=== PATIENT | male | born 1930 | race Hispanic/Latino ===

== ENCOUNTER 2017-05-14 01:46 | Emergency (ER) | payer MEDICARE ==
[2017-05-14 02:10] VITALS: BMI 31.8
[2017-05-14 02:13] VITALS: TEMP 98.3; O2SAT 97
[2017-05-14 02:42] LABS: BASO % 0.4 % (0.0-2.0); EOS # 0.1 K/uL (0.0-0.7); EOS % 1.6 % (0.0-4.0); HEMATOCRIT 35.7 % (35.0-51.0); LYMPH # 1.3 K/uL (1.0-4.3); LYMPH % 17.3 % (20.0-40.0); MEAN CELL VOLUME 95.7 fl (80.0-94.0); MEAN CORPUSCULAR HEMOGLOBIN 32.2 pg (27.0-31.0); MEAN CORPUSCULAR HGB CONC 33.6 g/dL (33.0-37.0); MEAN PLATELET VOLUME 8.8 fl (7.2-11.7); MONO % 13.8 % (0.0-10.0); NEUT # 4.9 K/uL (1.8-7.0); NEUT % 66.9 % (50.0-75.0); RED CELL DISTRIBUTION WIDTH 13.6 % (11.5-14.5); WHITE BLOOD COUNT 7.4 K/uL (4.8-10.8)
[2017-05-14 02:51] LABS: ALB/GLOB RATIO 1.3 (1.0-2.1); BILIRUBIN,TOTAL 0.6 mg/dl (0.2-1.3); CALCIUM 9.3 mg/dL (8.4-10.2); POTASSIUM 4.6 MMOL/L (3.6-5.0); TOTAL PROTEIN 7.5 G/DL (6.3-8.2)
--- NOTE | 2017-05-14 02:53 | ED PDOC ---
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 Patient has aphasia secondary to stroke but is able to communicate with and to say yes/ no with neck movements. (-) nausea, vomiting, diarrhea, fever, cough, SOB, or chest pain. confirms administration of Tylenol for the intermittent pain, and states she became more concerned with symptoms due to their persistence. Of note, patient has residual right sided weakness which has not worsened. PCP: MEENA Past Medical History Reviewed: Historical Data, Nursing Documentation, Vital Signs Vital Signs: Last Vital Signs Temp 98.3 F 05/14/17 02:10 Pulse 60 05/14/17 02:10 Resp 16 05/14/17 02:10 BP 138/70 05/14/17 02:10 Pulse Ox 97 05/14/17 02:10 - Medical History PMH: Arthritis, CAD, Cardia Arrhythmia (CHB in January), CVA, HTN, Hypercholesterolemia, Chronic Kidney Disease, Seizures, TIA Denies: HIV - Surgical History Surgical History: Coronary Stent, Pacemaker - Family History Family History: States: No Known Family Hx - Social History Current smoker - smoking cessation education provided: No Ex-Smoker (has not smoked in the last 12 months): No Alcohol: None Drugs: Denies - Home Medications Home Medications: Ambulatory Orders Medication Instructions Recorded Aspirin [Ecotrin] 81 mg PO DAILY #0 tabec 02/12/16 GlipiZIDE [Glucotrol] 5 mg PO DAILY 07/02/16 Potassium Chloride [K-Tab ER] 10 meq PO DAILY 07/02/16 Simvastatin [Zocor] 20 mg PO HS 07/02/16 Enalapril Maleate [Vasotec] 5 mg PO DAILY #0 tab 07/05/16 Furosemide [Lasix] 20 mg PO DAILY #0 07/05/16 Lacosamide [Vimpat] 50 mg PO BID #0 tab 07/05/16 - Allergies Allergies/Adverse Reactions: Allergies Allergy/AdvReac Type Severity Reaction Status Date / Time No Known Allergies Allergy Verified 02/12/16 15:29 Review of Systems ROS Statement: Except As Marked, All Systems Reviewed And Found Negative Constitutional: Negative for: Fever Cardiovascular: Negative for: Chest Pain Respiratory: Negative for: Cough, Shortness of Breath Gastrointestinal: Negative for: Nausea, Vomiting, Diarrhea Musculoskeletal: Positive for: Arm Pain (intermittent right upper extremity pain ), Other (right sided facial pain) Physical Exam - Reviewed Nursing Documentation Reviewed: Yes Vital Signs Reviewed: Yes - Physical Exam Appears: Positive for: No Acute Distress Head Exam: Positive for: ATRAUMATIC Skin: Positive for: Normal Color, Warm, Dry Eye Exam: Positive for: Normal appearance ENT: Positive for: Normal ENT Inspection Neck: Positive for: Normal Cardiovascular/Chest: Positive for: Regular Rate, Rhythm. Negative for: Murmur Respiratory: Positive for: Normal Breath Sounds. Negative for: Respiratory Distress Gastrointestinal/Abdominal: Positive for: Normal Exam, Soft. Negative for: Tenderness Back: Positive for: Normal Inspection Extremity: Positive for: Deformity (right hand: claw deformity), Other ( spasticity to right upper extremity) Neurologic/Psych: Positive for: Alert, Oriented, Aphasia - Laboratory Results Result Diagrams: 05/14/17 02:39 05/14/17 02:39 - ECG O2 Sat by Pulse Oximetry: 97 (RA) Pulse Ox Interpretation: Normal Medical Decision Making Medical Decision Makin Initial impression: right upper extremity and right sided facial pain in setting of residual hemiplegia from previous stroke Initial plan: * CT HEAD * EKG * Labs * CPK * Trop I * PTT/PT * Acetaminophen 650mg PO * Accucheck * XR FOREARM RT * XR HAND RT * XR WRIST RT * Re-eval 0315 Vitals stable, patient resting comfortably 0400 Labs reviewed, no clinically significant findings. XRs show advanced degenerative joint disease Upon re-evaluation, patient reports some improvement with Tylenol and is medically stable for discharge home. Patient will follow up with PCP x2 days. Dx: arthritis CT FINDINGS Brain: Moderate atrophy. No intracranial hemorrhage. No mass. Moderate encephalomalacia within LEFT frontal parietal region. Few scattered foci of decreased attenuation within periventricular/subcortical white matter. No definite edema. Ventricles: No hydrocephalus. Bones/joints: No acute fracture. Mild degenerative changes of LEFT temporomandibular joint with subluxation. Soft tissues: Unremarkable. Vasculature: Atherosclerotic disease of intracranial arteries. Sinuses: No acute sinusitis. Mastoid air cells: No mastoid effusion. Orbits: Unremarkable as visualized. IMPRESSION: 1. Nonspecific white matter changes. Acute infarction may be CT occult within first 24 hours. If a focal deficit persists, consider followup CT or MRI for further evaluation. 2. Incidental/non-acute findings are described above. Scribe Attestation: Documented by Yessi Skinner acting as a scribe for Ravinder Lobo MD. Scribe Attestation: All medical record entries made by the Scribe were at my direction and personally dictated by me. I have reviewed the chart and agree that the record accurately reflects my personal performance of the history, physical exam, medical decision making, and the department course for this patient. I have also personally directed, reviewed, and agree with the discharge instructions and disposition. Disposition - Clinical Impression Clinical Impression: Arthritis Counseled Patient/Family Regarding: Studies Performed, Diagnosis, Need For Followup - Disposition Referrals: Douglas Weiss MD [Primary Care Provider] - Disposition: Routine/Home Disposition Time: 04:00 Condition: STABLE Instructions: Osteoarthritis (ED) - POA Present On Arrival: None
--- NOTE | 2017-05-14 03:01 | CT ---
EXAM: CT Head Without Intravenous Contrast CLINICAL HISTORY: 86 years old, male; Signs and symptoms; Weakness, extremity TECHNIQUE: Axial computed tomography images of the head/brain without intravenous contrast. This CT exam was performed using one or more of the following dose reduction techniques: automated exposure control, adjustment of the mA and/or kV according to patient size, and/or use of iterative reconstruction technique. Coronal and sagittal reformatted images were created and reviewed. COMPARISON: CT - HEAD W/O CONTRAST 02/04/2016 11:34:55 AM FINDINGS: Brain: Moderate atrophy. No intracranial hemorrhage. No mass. Moderate encephalomalacia within LEFT frontal parietal region. Few scattered foci of decreased attenuation within periventricular/subcortical white matter. No definite edema. Ventricles: No hydrocephalus. Bones/joints: No acute fracture. Mild degenerative changes of LEFT temporomandibular joint with subluxation. Soft tissues: Unremarkable. Vasculature: Atherosclerotic disease of intracranial arteries. Sinuses: No acute sinusitis. Mastoid air cells: No mastoid effusion. Orbits: Unremarkable as visualized. IMPRESSION: 1. Nonspecific white matter changes. Acute infarction may be CT occult within first 24 hours. If a focal deficit persists, consider followup CT or MRI for further evaluation. 2. Incidental/non-acute findings are described above.
[2017-05-14 03:02] LABS: TROPONIN I 0.021 ng/mL (0.00-0.120)
[2017-05-14 03:03] LABS: PARTIAL THROMBOPLASTIN TIME 27.6 Seconds (25.6-37.1)
[2017-05-14 04:01] VITALS: RESP 18
[2017-05-14 05:10] VITALS: BP 149/82; PULSE 72
--- NOTE | 2017-05-14 15:14 | RAD ---
PROCEDURE: Right hand radiographs Right wrist radiographs HISTORY: Pain COMPARISON: None available. FINDINGS: Severe diffuse osseous demineralization limits evaluation for acute fracture lines. Extensive degenerative changes including severe joint space narrowing most significant at the 2nd and 5th proximal interphalangeal joints. Dense vascular calcifications. Diffuse soft tissue swelling. IMPRESSION: Severe diffuse demineralization and extensive degenerative changes. No acute displaced fracture or dislocation identified. If acute fracture remains of high clinical concern, suggest MRI for further evaluation due to extensive demineralization. Correlate clinically.
--- NOTE | 2017-05-14 15:19 | RAD ---
PROCEDURE: Radiographs of the right forearm. HISTORY: pain COMPARISON: None available. TECHNIQUE: Frontal and lateral views obtained. FINDINGS: BONES: Diffuse osseous demineralization limits evaluation for acute fracture lines. No acute displaced fracture. JOINT SPACES: No dislocation. OTHER FINDINGS: Dense vascular calcification. No evidence of radiopaque foreign body. IMPRESSION: Diffuse osseous demineralization. No acute displaced fracture or dislocation identified. If symptoms persist, or if there is continued clinical concern, x-ray follow-up in 7-10 days should be considered.
--- NOTE | 2017-05-14 17:34 | CARD ---
APPROVED REPORT EKG Measurement Heart [id number] <Conclusion> Ventricular-paced rhythm Abnormal ECG
== END 2017-05-14 05:10 | disposition home or self-care (01) ==
LOC: H.ER 01:46
DX: M19.031 Primary osteoarthritis, right wrist (principal); R51 Headache

== ENCOUNTER 2017-11-21 09:20 | Emergency (ER) | payer MEDICARE ==
[2017-11-21 09:20] VITALS: BMI 31.8
[2017-11-21 09:38] VITALS: BP 159/92; PULSE 59; RESP 16; O2SAT 99
--- NOTE | 2017-11-21 10:07 | ED PDOC ---
HPI: Abdomen Time Seen by Provider: 11/21/17 09:20 Chief Complaint (Nursing): Abdominal Pain Chief Complaint (Provider): Abd Pain/Left-Sided Facial Pain History Per: Family () History/Exam Limitations: no limitations Onset/Duration Of Symptoms: Days (x1 wk) Current Symptoms Are (Timing): Still Present Additional Complaint(s): Kishan Pitt is an 87 year old male with a history of diabetes, ME (has pacemaker and stents), and stroke, from which he has right sided hemiparesis, presents to the ED with a chief complaint of diffuse abdominal pain that he has been experiencing for the past week. 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 denies patient experiencing any vomiting, diarrhea, fever, or urinary symptoms. PMD: Dr. Weiss Patient also visited at home by PRINCIPAL EXAMINER Yuliana Camp from Dr. Vaughan's office. Past Medical History Reviewed: Historical Data, Nursing Documentation, Vital Signs Vital Signs: Last Vital Signs Temp 98.0 F 11/21/17 10:45 Pulse 59 L 11/21/17 09:34 Resp 16 11/21/17 09:34 BP 159/92 H 11/21/17 09:34 Pulse Ox 99 11/21/17 14:43 - Medical History PMH: Arthritis, CAD, Cardia Arrhythmia (CHB in January), CVA, Diabetes, HTN, Hypercholesterolemia, Chronic Kidney Disease, Seizures, TIA Denies: HIV - Surgical History Surgical History: Coronary Stent, Hernia Repair, Pacemaker - Family History Family History: States: Unknown Family Hx - Social History Ex-Smoker (has not smoked in the last 12 months): No Alcohol: None Drugs: Denies - Home Medications Home Medications: Ambulatory Orders Medication Instructions Recorded Potassium Chloride [K-Tab ER] 10 meq PO DAILY 07/02/16 Simvastatin [Zocor] 20 mg PO HS 07/02/16 Allopurinol [Zyloprim] 100 mg PO DAILY 11/21/17 Aspirin [Ecotrin] 81 mg PO DAILY 11/21/17 Docusate [Colace] 100 mg PO Q12H 11/21/17 Enalapril Maleate [Vasotec] 5 mg PO BID 11/21/17 Furosemide [Lasix] 40 mg PO DAILY 11/21/17 Lacosamide [Vimpat] 50 mg PO BID 11/21/17 Levothyroxine [Synthroid] 50 mcg PO DAILY 11/21/17 Multivitamin [Multi-Vitamin Daily] 1 tab PO DAILY 11/21/17 Polyethylene Glycol 3350 [Miralax] 17 gm PO DAILY PRN 11/21/17 glyBURIDE [Micronase] 5 mg PO DAILY 11/21/17 metFORMIN [glucOPHAGE] 500 mg PO QPM 11/21/17 traZODone [Desyrel] 50 mg PO HS 11/21/17 - Allergies Allergies/Adverse Reactions: Allergies Allergy/AdvReac Type Severity Reaction Status Date / Time No Known Allergies Allergy Verified 02/12/16 15:29 Review of Systems Constitutional: Negative for: Fever ENT: Positive for: Other (left-sided facial pain) Gastrointestinal: Positive for: Abdominal Pain. Negative for: Vomiting, Diarrhea Physical Exam - Reviewed Nursing Documentation Reviewed: Yes Vital Signs Reviewed: Yes - Physical Exam Appears: Positive for: Non-toxic, No Acute Distress Head Exam: Positive for: ATRAUMATIC, NORMOCEPHALIC Skin: Positive for: Normal Color, Warm Eye Exam: Positive for: EOMI, Normal appearance, PERRL Cardiovascular/Chest: Positive for: Regular Rate, Rhythm. Negative for: Murmur Respiratory: Positive for: Normal Breath Sounds. Negative for: Wheezing Gastrointestinal/Abdominal: Positive for: Normal Exam, Soft. Negative for: Tenderness Extremity: Positive for: Normal ROM. Negative for: Tenderness, Swelling Neurologic/Psych: Positive for: Alert, Oriented, Motor/Sensory Deficits (Right- sided hemiparesis, now baseline for patient after stroke) - Laboratory Results Result Diagrams: 11/21/17 10:15 11/21/17 10:15 - ECG O2 Sat by Pulse Oximetry: 99 Medical Decision Making Medical Decision Making: Impression: Abdominal Pain/Nerve Pain Plan: * CT Abd/Pelvis without PO or IV contrast * CMP * CBC * Urinalysis * Urine C&S * Guaic Stool * Morphine 2 mg IV * Reevaluation CT Abd/Pelvis without PO or IV contrast FINDINGS: LOWER THORAX: Unremarkable. LIVER: Unremarkable. No gross lesion or ductal dilatation. GALLBLADDER AND BILE DUCTS: Unremarkable. PANCREAS: Unremarkable. No gross lesion or ductal dilatation. SPLEEN: Unremarkable. ADRENALS: Unremarkable. No mass. KIDNEYS AND URETERS: Bilaterally atrophic kidneys without focal or diffuse abnormality. Findings are consistent with medical renal disease. VASCULATURE: Unremarkable. No aortic aneurysm. BOWEL: Diverticulosis without an acute inflammatory component or other associated pathologic process. Constipation without fecal impaction or obstruction. . No obstruction. No gross mural thickening. APPENDIX: Unremarkable. Normal appendix. PERITONEUM: Unremarkable. No free fluid. No free air. LYMPH NODES: Unremarkable. No enlarged lymph nodes. BLADDER: Unremarkable. REPRODUCTIVE: Unremarkable. BONES: No acute fracture. OTHER FINDINGS: None. IMPRESSION: No acute findings related to/accounting for the clinical presentation. Additional benign and/or incidental findings described above. Limitations of the current examination: Absence of intravenous and oral contrast. 14:05 Patient's chart shows he has hx of seizures and chronic renal insufficiency. Blood work shows creatinine is at baseline. Collected guaic stool, was brown, sent up to lab. 14:[address] Scan and Guaic stool negative. Patient reports that he is feeling better , denies any pain, and is eating and drinking in ED. Patient is stable for discharge home. Scribe Attestation: Documented by Nayana Mcdonald, acting as a scribe for Stu Nuno MD. Provider Scribe Attestation: All medical record entries made by the Scribe were at my direction and personally dictated by me. I have reviewed the chart and agree that the record accurately reflects my personal performance of the history, physical exam, medical decision making, and the department course for this patient. I have also personally directed, reviewed, and agree with the discharge instructions and disposition. Disposition - Clinical Impression Clinical Impression: Abdominal pain - Patient ED Disposition Is Patient to be Admitted: No - Disposition Disposition: Routine/Home Disposition Time: 14:30 Condition: IMPROVED Additional Instructions: follow up with your primary doctor tomorrow for reevaluation return to the ED with any worsening or concerning symptoms Instructions: Abdominal Pain (ED) Forms: [employer] ([place])
[2017-11-21 10:23] LABS: BASO % 0.2 % (0.0-2.0); EOS # 0.1 K/uL (0.0-0.7); HEMOGLOBIN 12.5 g/dL (12.0-18.0); LYMPH # 0.8 K/uL (1.0-4.3); LYMPH % 10.9 % (20.0-40.0); MEAN CELL VOLUME 95.2 fl (80.0-94.0); MEAN CORPUSCULAR HEMOGLOBIN 32.6 pg (27.0-31.0); MEAN CORPUSCULAR HGB CONC 34.3 g/dL (33.0-37.0); MONO # 0.6 K/uL (0.0-0.8); MONO % 9.1 % (0.0-10.0); NEUT # 5.6 K/uL (1.8-7.0); NEUT % 78.8 % (50.0-75.0); RBC 3.82 Mil/uL (4.40-5.90); RED CELL DISTRIBUTION WIDTH 14.8 % (11.5-14.5); WHITE BLOOD COUNT 7.1 K/uL (4.8-10.8)
[2017-11-21 10:41] LABS: ALB/GLOB RATIO 1.3 (1.0-2.1); ALBUMIN 4.1 g/dL (3.5-5.0); CALCIUM 9.1 mg/dL (8.4-10.2)
[2017-11-21 10:45] VITALS: TEMP 98
--- NOTE | 2017-11-21 11:48 | CT ---
PROCEDURE: CT Abdomen and Pelvis without intravenous contrast HISTORY: Unspecified abdominal pain. COMPARISON: 02/10/2016 renal ultrasound TECHNIQUE: Unenhanced study. Neither oral nor intravenous contrast administered. Sensitivity and specificity for acute inflammatory processes limited by the absence of oral and intravenous contrast. Radiation dose: Total exam DLP = 1245.03 mGy-cm. This CT exam was performed using one or more of the following dose reduction techniques: Automated exposure control, adjustment of the mA and/or kV according to patient size, and/or use of iterative reconstruction technique. FINDINGS: LOWER THORAX: Unremarkable. LIVER: Unremarkable. No gross lesion or ductal dilatation. GALLBLADDER AND BILE DUCTS: Unremarkable. PANCREAS: Unremarkable. No gross lesion or ductal dilatation. SPLEEN: Unremarkable. ADRENALS: Unremarkable. No mass. KIDNEYS AND URETERS: Bilaterally atrophic kidneys without focal or diffuse abnormality. Findings are consistent with medical renal disease. VASCULATURE: Unremarkable. No aortic aneurysm. BOWEL: Diverticulosis without an acute inflammatory component or other associated pathologic process. Constipation without fecal impaction or obstruction. . No obstruction. No gross mural thickening. APPENDIX: Unremarkable. Normal appendix. PERITONEUM: Unremarkable. No free fluid. No free air. LYMPH NODES: Unremarkable. No enlarged lymph nodes. BLADDER: Unremarkable. REPRODUCTIVE: Unremarkable. BONES: No acute fracture. OTHER FINDINGS: None. IMPRESSION: No acute findings related to/accounting for the clinical presentation. Additional benign and/or incidental findings described above. Limitations of the current examination: Absence of intravenous and oral contrast.
[2017-11-21 13:42] LABS: URINE BILIRUBIN NEGATIVE (NEGATIVE); URINE BLOOD NEGATIVE (NEGATIVE); URINE CLARITY SLIGHTY-CLOUDY (Clear); URINE COLOR YELLOW (YELLOW); URINE GLUCOSE (UA) NEG (Normal); URINE LEUKOCYTE ESTERASE NEG Leu/uL (Negative); URINE NITRATE NEGATIVE (NEGATIVE); URINE PROTEIN NEGATIVE (NEGATIVE); URINE UROBILINOGEN 0.2-1.0 mg/dL (0.2-1.0)
--- NOTE | 2017-11-22 09:28 | CARD ---
APPROVED REPORT EKG Measurement Heart [id number] <Conclusion> Ventricular-paced rhythm Abnormal ECG
== END 2017-11-21 15:23 | disposition home or self-care (01) ==
LOC: H.ER 09:20
DX: R10.9 Unspecified abdominal pain (principal); I12.9 Hypertensive chronic kidney disease with stage 1 through stage 4 chronic kidney disease, or unspecified chronic kidney disease; E78.00 Pure hypercholesterolemia, unspecified; I25.10 Atherosclerotic heart disease of native coronary artery without angina pectoris; Z79.82 Long term (current) use of aspirin; Z79.84 Long term (current) use of oral hypoglycemic drugs; Z86.73 Personal history of transient ischemic attack (TIA), and cerebral infarction without residual deficits; Z87.891 Personal history of nicotine dependence; Z95.0 Presence of cardiac pacemaker; Z95.5 Presence of coronary angioplasty implant and graft; R56.9 Unspecified convulsions
CPT/HCPCS: 74176; 80053; 81003; 82948; 85025; 87086; 93005; 99282; G0328

== ENCOUNTER 2017-11-29 10:05 | Emergency (ER) | payer MEDICARE ==
[2017-11-29 10:09] VITALS: TEMP 96.3
[2017-11-29 10:10] VITALS: BMI 32.1
[2017-11-29] MEDS ORDERED: Iohexol 240 (50 ml) PO ONE (11:35)
[2017-11-29] MEDS ORDERED: Sodium Chloride 0.9% 1,000 ML IV ONE (11:36)
--- NOTE | 2017-11-29 11:56 | ED PDOC ---
HPI: Abdomen Time Seen by Provider: 11/29/17 10:24 Chief Complaint (Nursing): Abdominal Pain History Per: Patient History/Exam Limitations: no limitations Onset/Duration Of Symptoms: Gradual (2 weeks) Current Symptoms Are (Timing): Still Present Severity: Moderate Quality Of Discomfort: Cramping Associated Symptoms: denies: Fever, Chills, Nausea, Vomiting, Back Pain, Chest Pain, Constipation, Urinary Symptoms Exacerbating Factors: None Alleviating Factors: None Additional History Per: Patient Additional Complaint(s): 25Pt c/o abdominal pain x2 weeks, worsened the past 2-3 days. Denies nausea or vomiting. Reports taking Tylenol and Pepto Bismol, mild relief. pt was seen here on 11/[address] con ct but still persistent pain and mow with left side tuttle, Past Medical History Reviewed: Historical Data, Nursing Documentation, Vital Signs Vital Signs: Last Vital Signs Temp 96.3 F L 11/29/17 10:08 Pulse 60 11/29/17 10:08 Resp BP 167/70 H 11/29/17 10:08 Pulse Ox 99 11/29/17 11:58 - Medical History PMH: Arthritis, CAD, Cardia Arrhythmia (CHB in January), CVA, Diabetes, HTN, Hypercholesterolemia, Chronic Kidney Disease, Seizures, TIA Denies: HIV - Surgical History Surgical History: Coronary Stent, Hernia Repair, Pacemaker - Family History Family History: States: Unknown Family Hx - Living Arrangements Living Arrangements: With Family - Social History Current smoker - smoking cessation education provided: No - Home Medications Home Medications: Ambulatory Orders Medication Instructions Recorded Potassium Chloride [K-Tab ER] 10 meq PO DAILY 07/02/16 Simvastatin [Zocor] 20 mg PO HS 07/02/16 Allopurinol [Zyloprim] 100 mg PO DAILY 11/21/17 Aspirin [Ecotrin] 81 mg PO DAILY 11/21/17 Docusate [Colace] 100 mg PO Q12H 11/21/17 Enalapril Maleate [Vasotec] 5 mg PO BID 11/21/17 Furosemide [Lasix] 40 mg PO DAILY 11/21/17 Lacosamide [Vimpat] 50 mg PO BID 11/21/17 Levothyroxine [Synthroid] 50 mcg PO DAILY 11/21/17 Multivitamin [Multi-Vitamin Daily] 1 tab PO DAILY 11/21/17 Polyethylene Glycol 3350 [Miralax] 17 gm PO DAILY PRN 11/21/17 glyBURIDE [Micronase] 5 mg PO DAILY 11/21/17 metFORMIN [glucOPHAGE] 500 mg PO QPM 11/21/17 traZODone [Desyrel] 50 mg PO HS 11/21/17 - Allergies Allergies/Adverse Reactions: Allergies Allergy/AdvReac Type Severity Reaction Status Date / Time No Known Allergies Allergy Verified 02/12/16 15:29 Review of Systems ROS Statement: Except As Marked, All Systems Reviewed And Found Negative Constitutional: Negative for: Fever, Chills Cardiovascular: Negative for: Chest Pain, Palpitations Respiratory: Negative for: Cough, Shortness of Breath Gastrointestinal: Positive for: Abdominal Pain. Negative for: Nausea, Vomiting , Diarrhea, Constipation, Melena, Hematochezia, Hematemesis, Rectal Pain Genitourinary Male: Negative for: Dysuria, Frequency Neurological: Positive for: Weakness (chronic left due to cva), Headache. Negative for: Confusion, Seizures, Altered Mental Status Physical Exam - Reviewed Nursing Documentation Reviewed: Yes Vital Signs Reviewed: Yes - Physical Exam Appears: Positive for: Uncomfortable Head Exam: Positive for: ATRAUMATIC, NORMAL INSPECTION, NORMOCEPHALIC Skin: Positive for: Normal Color, Warm, Dry Eye Exam: Positive for: Normal appearance Neck: Positive for: Normal, Painless ROM, Supple Cardiovascular/Chest: Positive for: Regular Rate, Rhythm, Chest Non Tender. Negative for: Edema, Gallop Respiratory: Positive for: Normal Breath Sounds. Negative for: Decreased Breath Sounds, Accessory Muscle Use, Crackles, Rales, Rhonchi, Stridor, Wheezing , Respiratory Distress Pulses-Radial (L): 2+ Pulses-Radial (R): 2+ Gastrointestinal/Abdominal: Positive for: Normal Exam, Bowel Sounds, Soft. Negative for: Tenderness, Organomegaly, Mass, Distended, Guarding, Rebound, Hernia, Asicites Male Genital Exam: Positive for: normal genitalia, no hernia. Negative for: bleeding, epididymal tenderness, scrotum tenderness (R), scrotum tenderness (L) , testicular tenderness (R), testicular tenderness (L) Back: Positive for: Normal Inspection. 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, Motor/Sensory Deficits (chronic right sided weakness), Facial Droop (right facial droop) - Laboratory Results Result Diagrams: 11/29/17 10:45 11/29/17 12:30 - ECG ECG: Positive for: Interpreted By Me ECG Rhythm: Positive for: Normal QRS, Normal ST Segment, Venticular Paced Interpretation Of Abn EKG: rate of 60 no evidence of ischemia O2 Sat by Pulse Oximetry: 99 Pulse Ox Interpretation: Normal - Radiology X-Ray: Interpreted by Me X-Ray Interpretation: No Acute Disease Disposition - Clinical Impression Clinical Impression: Abdominal discomfort - Patient ED Disposition Is Patient to be Admitted: Transfer of Care - Disposition Disposition Time: 15:51 Condition: STABLE Forms: [employer] ([place]i) Patient Signed Over To: Melida Munoz
[2017-11-29 12:06] LABS: BASO % 0.3 % (0.0-2.0); EOS # 0.1 K/uL (0.0-0.7); EOS % 0.7 % (0.0-4.0); HEMOGLOBIN 13.6 g/dL (12.0-18.0); LYMPH # 1.1 K/uL (1.0-4.3); LYMPH % 13.5 % (20.0-40.0); MEAN CELL VOLUME 94.9 fl (80.0-94.0); MEAN CORPUSCULAR HEMOGLOBIN 32.2 pg (27.0-31.0); MEAN CORPUSCULAR HGB CONC 33.9 g/dL (33.0-37.0); MEAN PLATELET VOLUME 9.1 fl (7.2-11.7); MONO # 0.7 K/uL (0.0-0.8); MONO % 8.9 % (0.0-10.0); NEUT # 6.1 K/uL (1.8-7.0); NEUT % 76.6 % (50.0-75.0); NRBC % 0.1 % (0.0-0.0); RBC 4.22 Mil/uL (4.40-5.90); RED CELL DISTRIBUTION WIDTH 14.7 % (11.5-14.5)
[2017-11-29 12:23] LABS: SQUAMOUS EPITHIAL < 1 /hpf (0-5); URINE BILIRUBIN NEGATIVE (NEGATIVE); URINE BLOOD NEGATIVE (NEGATIVE); URINE CLARITY CLEAR (Clear); URINE COLOR STRAW (YELLOW); URINE GLUCOSE (UA) NEG (Normal); URINE LEUKOCYTE ESTERASE NEG Leu/uL (Negative); URINE NITRATE NEGATIVE (NEGATIVE); URINE PROTEIN NEGATIVE (NEGATIVE); URINE UROBILINOGEN 0.2-1.0 mg/dL (0.2-1.0)
[2017-11-29 12:38] LABS: VENOUS BLOOD GAS PCO2 39 mmHg (40-60); VENOUS BLOOD GAS PO2 41 mm/Hg (30-55); VENOUS BLOOD PH 7.45 (7.32-7.43)
--- NOTE | 2017-11-29 12:58 | RAD ---
HISTORY: abd pain COMPARISON: Chest x-ray performed 02/04/16 and 07/02/16 TECHNIQUE: Chest, one view. FINDINGS: Examination markedly limited by habitus and marked hypoinflation. LUNGS: Right peritracheal opacity of unclear significance, possibly confluence of shadows due to tortuous vasculature exaggerated by patient obliquity and prominent manubrium. Bibasilar atelectasis. Please note that chest x-ray has limited sensitivity for the detection of pulmonary masses. PLEURA: No significant pleural effusion identified. No definite pneumothorax . CARDIOVASCULAR: Single lead left-sided pacemaker. Cardiomegaly. Ectatic aorta containing atherosclerotic calcifications. OSSEOUS STRUCTURES: Degenerative changes. VISUALIZED UPPER ABDOMEN: Unremarkable. OTHER FINDINGS: None. IMPRESSION: Right peritracheal opacity of unclear significance, possibly confluence of shadows due to tortuous vasculature exaggerated by patient obliquity and prominent manubrium. Bibasilar atelectasis. Single lead left-sided pacemaker. Cardiomegaly. Ectatic aorta containing atherosclerotic calcifications.
[2017-11-29] MEDS ORDERED: Iohexol 240 (50 ml) ONE (13:06)
[2017-11-29 13:18] LABS: ALB/GLOB RATIO 1.3 (1.0-2.1); ALBUMIN 4.4 g/dL (3.5-5.0); CALCIUM 9.7 mg/dL (8.4-10.2)
[2017-11-29 13:20] LABS: TROPONIN I 0.045 ng/mL (0.00-0.120)
[2017-11-29] MEDS ORDERED: Iohexol 300 100 ML IJ ONE (15:32)
[2017-11-29] MEDS ORDERED: Sodium Chloride 0.9% 0 ML IV ONE (15:32)
--- NOTE | 2017-11-29 15:33 | CARD ---
APPROVED REPORT EKG Measurement Heart [id number] <Conclusion> Ventricular-paced rhythm Abnormal ECG
--- NOTE | 2017-11-29 15:55 | CT ---
PROCEDURE: CT HEAD WITHOUT CONTRAST. HISTORY: tuttle left frontal COMPARISON: Unenhanced head CT 05/14/2017 TECHNIQUE: Axial computed tomography images were obtained through the head/brain without intravenous contrast. Radiation dose: Total exam DLP = 1090.62 mGy-cm. This CT exam was performed using one or more of the following dose reduction techniques: Automated exposure control, adjustment of the mA and/or kV according to patient size, and/or use of iterative reconstruction technique. FINDINGS: HEMORRHAGE: No intracranial hemorrhage. 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 Good corticomedullary differentiation is otherwise seen. Reiterated diffuse cerebral atrophy and chronic microangiopathy. No suspicious extra-axial fluid collection is identified and the midline brain anatomy appears grossly nonfocal as imaged VENTRICLES: Unremarkable. No hydrocephalus. CALVARIUM: Unremarkable. PARANASAL SINUSES: Unremarkable as visualized. No significant inflammatory changes. MASTOID AIR CELLS: Unremarkable as visualized. No inflammatory changes. OTHER FINDINGS: None. IMPRESSION: Stable large chronic infarct left MCA distribution as well as age related neuro degenerative changes. No definite acute interval findings by standard CT criteria. Follow-up MRI or CT are available as clinically warranted.
--- NOTE | 2017-11-29 16:06 | ED PDOC ---
- Laboratory Results Result Diagrams: 11/29/17 10:45 11/29/17 12:30 - ECG O2 Sat by Pulse Oximetry: 99 Medical Decision Making Medical Decision Making: received patient from Dr. Resendiz. Patient in the ER because of abd pain, upper. Patient is pending CT abd/pelvis 4.45p - CT unrevealing of acute pathology. patient now without complaints. Examined and interviewed with his son at bedside. Abdominal exam is benign (no distention, no tenderness, soft). His son inquired about observation in hospital. Understands that without acute disease, it is unlikely that any further testing will be done during the weekend. Patient does not want to be admitted. He lives with his . His son lives in another town. Disposition Doctor Will See Patient In The: Office Counseled Patient/Family Regarding: Diagnosis - Clinical Impression Clinical Impression: Abdominal discomfort, Headache, Chronic renal insufficiency - POA Present On Arrival: None - Disposition Referrals: Douglas Weiss MD [Family Provider] - Nils Chavez [Outside] Disposition: Routine/Home Disposition Time: 16:45 Condition: STABLE Instructions: Abdominal Pain (ED) Forms: [employer] (Taiwanese)
--- NOTE | 2017-11-29 16:26 | CT ---
PROCEDURE: CT Abdomen and Pelvis with contrast HISTORY: Abdominal pain COMPARISON: 11/21/2017 TECHNIQUE: Oral contrast only. Radiation dose: Total exam DLP = 1224.86 mGy-cm. This CT exam was performed using one or more of the following dose reduction techniques: Automated exposure control, adjustment of the mA and/or kV according to patient size, and/or use of iterative reconstruction technique. FINDINGS: LOWER THORAX: Unremarkable. LIVER: Unremarkable. No gross lesion or ductal dilatation. GALLBLADDER AND BILE DUCTS: Unremarkable. PANCREAS: Unremarkable. No gross lesion or ductal dilatation. SPLEEN: Unremarkable. ADRENALS: Unremarkable. No mass. KIDNEYS AND URETERS: Atrophic kidneys bilaterally. No hydronephrosis. No solid mass. VASCULATURE: Unremarkable. No aortic aneurysm. BOWEL: Unremarkable. No obstruction. No gross mural thickening. Constipation without fecal impaction or obstruction. APPENDIX: Normal appendix. PERITONEUM: Unremarkable. No free fluid. No free air. LYMPH NODES: Unremarkable. No enlarged lymph nodes. BLADDER: Unremarkable. REPRODUCTIVE: Unremarkable. BONES: No acute fracture. OTHER FINDINGS: None. IMPRESSION: No acute findings related to/accounting for the clinical presentation. Additional benign and/or incidental findings described above. No significant interval change compared to the prior examination(s).
[2017-11-29 17:31] VITALS: BP 176/84; PULSE 68; RESP 18; O2SAT 98
== END 2017-11-29 17:30 | disposition home or self-care (01) ==
LOC: H.ER 10:05
DX: R10.9 Unspecified abdominal pain (principal); R51 Headache; I12.9 Hypertensive chronic kidney disease with stage 1 through stage 4 chronic kidney disease, or unspecified chronic kidney disease; E78.00 Pure hypercholesterolemia, unspecified; Z79.82 Long term (current) use of aspirin; Z79.84 Long term (current) use of oral hypoglycemic drugs; Z86.73 Personal history of transient ischemic attack (TIA), and cerebral infarction without residual deficits; Z95.0 Presence of cardiac pacemaker; Z95.5 Presence of coronary angioplasty implant and graft
CPT/HCPCS: 70450; 71045; 74176; 80053; 81003; 82150; 82803; 83690; 84484; 85025; 93005; 99282; J7040; Q9966

== ENCOUNTER 2018-07-07 18:12 | Inpatient (IN) | payer MEDICARE ==
[2018-07-07 19:02] LABS: BASO % 0.2 % (0.0-2.0); EOS # 0.2 K/uL (0.0-0.7); EOS % 1.9 % (0.0-4.0); HEMOGLOBIN 13.1 g/dL (12.0-18.0); LYMPH % 11.5 % (20.0-40.0); MEAN CELL VOLUME 97.3 fl (80.0-94.0); MEAN CORPUSCULAR HEMOGLOBIN 32.6 pg (27.0-31.0); MEAN CORPUSCULAR HGB CONC 33.5 g/dL (33.0-37.0); MEAN PLATELET VOLUME 8.5 fl (7.2-11.7); MONO # 0.6 K/uL (0.0-0.8); MONO % 6.5 % (0.0-10.0); NEUT % 79.9 % (50.0-75.0); RBC 4.02 Mil/uL (4.40-5.90); RED CELL DISTRIBUTION WIDTH 14.5 % (11.5-14.5); WHITE BLOOD COUNT 8.7 K/uL (4.8-10.8)
[2018-07-07 19:21] LABS: INR 1.1; PROTHROMBIN TIME 12.2 Seconds (9.8-13.1)
[2018-07-07 19:24] LABS: PARTIAL THROMBOPLASTIN TIME 29.4 Seconds (25.6-37.1)
[2018-07-07 19:29] LABS: ALB/GLOB RATIO 1.4 (1.0-2.1); ALBUMIN 4.2 g/dL (3.5-5.0); CALCIUM 9.3 mg/dL (8.4-10.2)
[2018-07-07 19:55] LABS: TROPONIN I 7.96 ng/mL (0.00-0.120)
--- NOTE | 2018-07-07 20:09 | ED PDOC ---
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 Also was somewhat listless today, appeared fatigued and had sweats. He also notes L facial pain, which he has intermittently for quite some time per family. Also notes a headache yesterday. He denies chest pain, fever, or vomiting/diarrhea. Patient bedbound for 5+ years. Past Medical History Reviewed: Historical Data, Nursing Documentation, Vital Signs Vital Signs: Last Vital Signs Temp 97.6 F 07/16/18 15:55 Pulse 60 07/17/18 13:59 Resp 17 07/16/18 15:55 BP 128/69 07/16/18 15:55 Pulse Ox 100 07/17/18 13:59 - Medical History PMH: Arthritis, CAD, Cardia Arrhythmia (CHB in January), CVA, Diabetes, HTN, Hypercholesterolemia, Chronic Kidney Disease, Seizures, TIA Denies: HIV Other PMH: ? stents 10yrs ago, not on plavix - Surgical History Surgical History: Coronary Stent, Hernia Repair, Pacemaker - Family History Family History: States: Unknown Family Hx - Home Medications Home Medications: Ambulatory Orders Medication Instructions Recorded Allopurinol [Zyloprim] 100 mg PO DAILY 11/21/17 Aspirin [Ecotrin] 81 mg PO DAILY 11/21/17 Docusate [Colace] 100 mg PO Q12H 11/21/17 Enalapril Maleate [Vasotec] 5 mg PO BID 11/21/17 Furosemide [Lasix] 40 mg PO DAILY 11/21/17 Lacosamide [Vimpat] 50 mg PO BID 11/21/17 Levothyroxine [Synthroid] 50 mcg PO DAILY 11/21/17 Multivitamin [Multi-Vitamin Daily] 1 tab PO DAILY 11/21/17 Polyethylene Glycol 3350 [Miralax] 17 gm PO DAILY PRN 11/21/17 glyBURIDE [Micronase] 5 mg PO DAILY 11/21/17 metFORMIN [glucOPHAGE] 500 mg PO QPM 11/21/17 traZODone [Desyrel] 50 mg PO HS 11/21/17 Atorvastatin [Lipitor] 40 mg PO DAILY tab 07/16/18 Clopidogrel [Plavix] 75 mg PO DAILY tab 07/16/18 Enoxaparin [Lovenox] 100 mg SC DAILY syr 07/16/18 - Allergies Allergies/Adverse Reactions: Allergies Allergy/AdvReac Type Severity Reaction Status Date / Time No Known Allergies Allergy Verified 07/16/18 17:27 Review of Systems ROS Statement: Except As Marked, All Systems Reviewed And Found Negative Constitutional: Negative for: Fever Cardiovascular: Negative for: Chest Pain Respiratory: Positive for: Cough. Negative for: Shortness of Breath Gastrointestinal: Positive for: Nausea, Abdominal Pain, Constipation. Negative for: Vomiting Genitourinary Male: Negative for: Dysuria, Hematuria Musculoskeletal: Negative for: Neck Pain, Back Pain, Leg Pain Skin: Negative for: Rash Neurological: Positive for: Weakness, Numbness (chronic), Change in Speech ( chronic), Altered Mental Status, Headache Psych: Negative for: Suicidal ideation Physical Exam - Reviewed Nursing Documentation Reviewed: Yes Vital Signs Reviewed: Yes - Physical Exam Appears: Positive for: Non-toxic (expressive aphasia) Head Exam: Positive for: ATRAUMATIC, NORMAL INSPECTION, NORMOCEPHALIC Skin: Positive for: Normal Color, Warm, DRY Eye Exam: Positive for: EOMI, Normal appearance, PERRL ENT: Positive for: Normal ENT Inspection Neck: Positive for: Normal, Painless ROM Cardiovascular/Chest: Positive for: Regular Rate, Rhythm Respiratory: Positive for: CNT, Normal Breath Sounds Gastrointestinal/Abdominal: Positive for: Soft. Negative for: Tenderness Back: Positive for: Normal Inspection Extremity: Positive for: Normal ROM Neurologic/Psych: Positive for: Alert, Motor/Sensory Deficits (R weakness chronic), Aphasia, Facial Droop (mild) - Laboratory Results Result Diagrams: 07/09/18 04:45 07/09/18 04:45 - ECG ECG: Positive for: Interpreted By Me ECG Rhythm: Positive for: Venticular Paced, Nonspecific Changes Interpretation Of Abn EKG: compared to 2017 EKG no changes Rate: 60 O2 Sat by Pulse Oximetry: 100 Pulse Ox Interpretation: Normal - Radiology X-Ray: Interpreted by Me X-Ray Interpretation: No Acute Disease - Critical Care Total Time (In Min): 60 Medical Decision Making Medical Decision Making: workup for abd pain with slight AMS per family EKG paced rhythm similar to prior from 2017 labs reviewed and reveal elevated trop 7.9, stable renal insufficiency, normal hgb D/w PMD /cardio Dr Weiss, requests load plavix, no heparin for now. Admit ICU CT brain/Facials ordered given initial c/o facial pain and headache, Abd pelv CT for abd pain. After trop returned, likely referred anginal symptoms d/w Dr Paul ICU for overnight care. Patient pain free on re-eval, results discussed w patient and son. Disposition - Clinical Impression Clinical Impression: Non-ST elevation (NSTEMI) myocardial infarction, CRF (chronic renal failure) - Patient ED Disposition Is Patient to be Admitted: Yes Counseled Patient/Family Regarding: Studies Performed, Diagnosis - Disposition Disposition Time: 20:01 Condition: CRITICAL - Pt Status Changed To: Hospital Disposition Of: Inpatient - Admit Certification Admit to Inpatient:: After my assessment, the patient will require hospitalization for at least two midnights. This is because of the severity of symptoms shown, intensity of services needed, and/or the medical risk in this patient being treated as an outpatient. - POA Present On Arrival: None
[2018-07-07 22:08] LABS: URINE BILIRUBIN NEGATIVE (NEGATIVE); URINE BLOOD NEGATIVE (NEGATIVE); URINE CLARITY CLEAR (Clear); URINE COLOR YELLOW (YELLOW); URINE GLUCOSE (UA) NEG (Normal); URINE LEUKOCYTE ESTERASE NEG Leu/uL (Negative); URINE PROTEIN NEGATIVE (NEGATIVE); URINE UROBILINOGEN 0.2-1.0 mg/dL (0.2-1.0)
--- NOTE | 2018-07-07 22:08 | CP.PCM.CON ---
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 Family states he has not been himself, and has been fatigued with diaphoresis. In ED, patient Troponin 7.9, EKG paced ventricular rhythm. Patient's PCP is Dr. Weiss, who requested patient high dose Plavix, no heparin drip at this time. ASA, plavix, BB, statin, initiated. No active chest pain, patient HD stable, no acute distress, family at bedside. ROS: difficult to obtain 2/2 expressive aphasia, per hpi all other systems reviewed and negative Past Patient History - Infectious Disease Hx of Infectious Diseases: None - Past Medical History & Family History Past Medical History?: Yes - Past Social History Smoking Status: Former Smoker - CARDIAC Hx Cardia Arrhythmia: Yes (CHB in January) Hx Hypercholesterolemia: Yes Hx Hypertension: Yes Hx Pacemaker: Yes - PULMONARY Hx Respiratory Disorders: No - NEUROLOGICAL Hx Seizures: Yes Hx Transient Ischemic Attacks (TIA): Yes - HEENT Hx Cataracts: Yes - RENAL Hx Chronic Kidney Disease: Yes - ENDOCRINE/METABOLIC Hx Endocrine Disorders: Yes Hx Diabetes Mellitus Type 2: Yes - HEMATOLOGICAL/ONCOLOGICAL Hx Human Immunodeficiency Virus (HIV): No - INTEGUMENTARY Hx Dermatological Problems: Yes Other/Comment: Hx skin cancer - MUSCULOSKELETAL/RHEUMATOLOGICAL Hx Arthritis: Yes - GASTROINTESTINAL Hx Gastrointestinal Disorders: No - GENITOURINARY/GYNECOLOGICAL Hx Genitourinary Disorders: No - PSYCHIATRIC Hx Psychophysiologic Disorder: No Hx Substance Use: No - SURGICAL HISTORY Hx Coronary Stent: Yes - ANESTHESIA Hx Anesthesia: Yes Hx Anesthesia Reactions: No Hx Malignant Hyperthermia: No Meds Allergies/Adverse Reactions: Allergies Allergy/AdvReac Type Severity Reaction Status Date / Time No Known Allergies Allergy Verified 02/12/16 15:29 - Medications Medications: Current Medications Acetaminophen (Tylenol 325mg Tab) 650 mg PO Q6 PRN PRN Reason: Fever >100.4 F Allopurinol (Zyloprim) 100 mg PO DAILY [place] Aspirin (Ecotrin) 81 mg PO DAILY [place] Carvedilol (Coreg) 6.25 mg PO Q12 [facility] Clopidogrel Bisulfate (Plavix) 75 mg PO DAILY [facility] Enalapril Maleate (Vasotec) 5 mg PO BID [facility] Enoxaparin Sodium (Lovenox) 40 mg SC DAILY [facility] PRN Reason: Protocol Glyburide (Micronase) 5 mg PO DAILY [facility] Home Med (Simvastatin [Zocor]) 20 mg PO HS [facility] Insulin Human Lispro (Humalog) 0 units SC ACHS [facility] PRN Reason: Protocol Lacosamide (Vimpat) 50 mg PO BID [facility] Levothyroxine Sodium (Synthroid) 50 mcg PO DAILY [place] Trazodone HCl (Desyrel) 50 mg PO HS [facility] Physical Exam - Constitutional Appears: Non-toxic, No Acute Distress - Head Exam Head Exam: ATRAUMATIC, NORMOCEPHALIC - Eye Exam Eye Exam: EOMI, Normal appearance, PERRL - ENT Exam ENT Exam: Mucous Membranes Moist, Normal Oropharynx - Respiratory Exam Respiratory Exam: Clear to Auscultation Bilateral, NORMAL BREATHING PATTERN - Cardiovascular Exam Cardiovascular Exam: RRR, +S1, +S2 - GI/Abdominal Exam GI & Abdominal Exam: Normal Bowel Sounds, Soft - Extremities Exam Extremities exam: Positive for: normal capillary refill, pedal pulses present - Back Exam Back exam: absent: CVA tenderness (L), CVA tenderness (R) - Neurological Exam Neurological exam: Alert, Reflexes Normal Additional comments: r sided hemiplegia, expressive aphasia - Psychiatric Exam Psychiatric exam: Normal Affect, Normal Mood - Skin Skin Exam: Dry, Warm Results - Vital Signs Recent Vital Signs: Last Vital Signs Temp 97.5 F L 07/07/18 18:21 Pulse 60 07/07/18 20:42 Resp 18 07/07/18 18:21 BP 115/67 07/07/18 18:21 Pulse Ox 100 07/07/18 20:42 - Labs Result Diagrams: 07/07/18 18:58 07/07/18 18:58 Labs: Laboratory Results - last 24 hr 07/07/18 07/07/18 07/07/18 18:52 18:58 18:58 WBC 8.7 RBC 4.02 L Hgb 13.1 Hct 39.1 MCV 97.3 H D MCH 32.6 H MCHC 33.5 RDW 14.5 Plt Count 211 MPV 8.5 Neut % (Auto) 79.9 H Lymph % (Auto) 11.5 L [place] % (Auto) 6.5 Eos % (Auto) 1.9 Baso % (Auto) 0.2 Neut # (Auto) 7.0 Lymph # (Auto) 1.0 [place] # (Auto) 0.6 Eos # (Auto) 0.2 Baso # (Auto) 0.0 PT INR APTT Sodium 141 Potassium 4.9 Chloride 101 Carbon Dioxide 27 Anion Gap 18 BUN 37 H Creatinine 2.7 H Est GFR ( Amer) 27 Est GFR (Non-Af Amer) 22 POC Glucose (mg/dL) 191 H Random Glucose 178 H Calcium 9.3 Total Bilirubin 0.5 AST 95 H D ALT 30 Alkaline Phosphatase 137 H D Troponin I 7.9600 H* Total Protein 7.3 Albumin 4.2 Globulin 3.1 Albumin/Globulin Ratio 1.4 Lipase 95 07/07/18 18:58 WBC RBC Hgb Hct MCV MCH MCHC RDW Plt Count MPV Neut % (Auto) Lymph % (Auto) [place] % (Auto) Eos % (Auto) Baso % (Auto) Neut # (Auto) Lymph # (Auto) [place] # (Auto) Eos # (Auto) Baso # (Auto) PT 12.2 INR 1.1 APTT 29.4 Sodium Potassium Chloride Carbon Dioxide Anion Gap BUN Creatinine Est GFR ( Amer) Est GFR (Non-Af Amer) POC Glucose (mg/dL) Random Glucose Calcium Total Bilirubin AST ALT Alkaline Phosphatase Troponin I Total Protein Albumin Globulin Albumin/Globulin Ratio Lipase Assessment & Plan - Assessment and Plan (Free Text) Plan: 87 year old bedbound male, PMH CVA with R hemiplegia, expressive aphasia, 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 Family states he has not been himself, and has been fatigued with diaphoresis. CT abd neg for any acute pathology. In ED, patient Troponin 7.9, EKG paced ventricular rhythm. Patient's PCP is Dr. Weiss, who requested patient high dose Plavix, no heparin drip at this time. ASA, plavix, BB, statin, initiated. No active chest pain, patient HD stable, no acute distress, family at bedside. NSTEMI troponin 7.9, trend enzymes EKG paced ventricular rhythm, no discordant ST segment elevations greater than 5mm cont ASA, plavix, coreg, statin. ECHO ordered DVT ppx lovenox
[2018-07-08] MEDS: Heparin 25,000units in D5W 25,000 UNITS/250 ML BAG IV SCH (03:00)
[2018-07-08 06:08] LABS: MEAN CELL VOLUME 97.3 fl (80.0-94.0); MEAN CORPUSCULAR HGB CONC 33.9 g/dL (33.0-37.0); RBC 3.64 Mil/uL (4.40-5.90); RED CELL DISTRIBUTION WIDTH 14.1 % (11.5-14.5); WHITE BLOOD COUNT 7.6 K/uL (4.8-10.8)
[2018-07-08 06:10] LABS: CALCIUM 9.2 mg/dL (8.4-10.2)
[2018-07-08] MEDS: Insulin Lispro (humaLOG) 100 Units/ml Inj SC SCH ×4 (08:00→21:38)
[2018-07-08] MEDS ORDERED: Enoxaparin 30 mg Syringe SC SCH (09:00)
--- NOTE | 2018-07-08 09:09 | RAD ---
Date of service: 07/07/2018 HISTORY: SOB COMPARISON: 11/29/2017. FINDINGS: LUNGS: There are low lung volumes. The lungs are clear PLEURA: No significant pleural effusion identified, no pneumothorax apparent. CARDIOVASCULAR: Persistent mild cardiomegaly. There is stable position of left-sided unipolar permanent pacing device. Atherosclerotic aortic arch calcifications are present. OSSEOUS STRUCTURES: No significant abnormalities. VISUALIZED UPPER ABDOMEN: Normal. OTHER FINDINGS: None. IMPRESSION: Low lung volumes. No acute findings.
--- NOTE | 2018-07-08 09:16 | CARD ---
APPROVED REPORT Date of service: 07/07/2018 <Conclusion> Sinus rhythm with complete heart block and Ventricular-paced rhythm Abnormal ECG
[2018-07-08] MEDS: Lacosamide 50 MG Tab PO SCH ×2 (09:37→16:59)
--- NOTE | 2018-07-08 09:49 | CP.CCUPN ---
<Sultan Lesa - Last Filed: 07/08/18 10:45> CCU Subjective - Physician Review Subjective (Free Text): 07/08/18 9:33 87 yo male w/ pmhx of CVA w/ right hemiplegia, expressive aphasia, CAD, CKD , pacemaker placement admitted to ICU last night for NSTEMI. Pt's first troponin level was 7.96, second troponin level was 94.3 ng/ml, repeat EKG at 2:30 AM showed ventricular paced rhythm. Computer Forensics Investigator Dr. Gooden was consulted and pt was placed on heparin drip. This morning, pt denies any chest pain, dyspnea or abdominal pain. No other complaints. CCU Objective - Vital Signs / Intake & Output Vital Signs (Last 4 hours): Vital Signs Temp Pulse Resp BP Pulse Ox 07/08/18 09:27 61 123/59 L 07/08/18 08:00 98.4 F 60 21 120/59 L 100 07/08/18 06:00 60 18 117/70 100 Intake and Output (Last 8hrs): Intake & Output 07/07/18 07/08/18 07/08/18 22:59 06:59 14:59 Intake Total 140 Output Total 100 Balance 40 Weight 124.738 kg 101.605 kg Intake: IV 20 Oral 120 Output: Urine 100 Urine, Voided 100 - Physical Exam Head: Positive for: Atraumatic, Normocephalic Pupils: Positive for: PERRL Extroacular Muscles: Positive for: EOMI Conjunctiva: Positive for: Normal Mouth: Positive for: Moist Mucous Membranes Cardiovascular: Positive for: Regular Rate and Rhythm, Normal S1, S2 Abdomen: Positive for: Normal Bowel Sounds. Negative for: Tenderness, Distention Upper Extremity: Positive for: NORMAL PULSES. Negative for: Edema Lower Extremity: Positive for: Normal Inspection, NORMAL PULSES. Negative for: CALF TENDERNESS Neurological: Positive for: Other (alert, expressive aphasia, right sided hemiplegia) Psychiatric: Positive for: Alert, Oriented x 3 - Medications Active Medications: Active Medications Generic Name Dose Route Start Last Admin Trade Name Freq PRN Reason Stop Dose Admin Acetaminophen 650 mg 07/07/18 21:54 Tylenol 325mg Tab PO Q6 PRN Fever >100.4 F Allopurinol 100 mg 07/08/18 09:00 07/08/18 09:30 Zyloprim PO 100 mg DAILY [facility] Administration Aspirin 81 mg 07/08/18 09:00 07/08/18 09:27 Ecotrin PO 81 mg DAILY [facility] Administration Atorvastatin Calcium 10 mg 07/07/18 22:00 07/07/18 22:36 Lipitor PO 10 mg HS [facility] Administration Carvedilol 6.25 mg 07/08/18 09:00 07/08/18 09:27 Coreg PO 6.25 mg Q12 [facility] Administration Clopidogrel Bisulfate 75 mg 07/08/18 09:00 07/08/18 09:29 Plavix PO 75 mg DAILY [facility] Administration Enalapril Maleate 5 mg 07/08/18 09:00 07/08/18 09:29 Vasotec PO 5 mg BID [facility] Administration Glyburide 5 mg 07/08/18 09:00 07/08/18 09:28 Micronase PO 5 mg DAILY [facility] Administration Heparin Sodium/Dextrose 25,000 units in 250 mls @ 10 mls/hr 07/08/18 02:30 03:00 Heparin 25,000 Units/250ml In D5w IV 10 mls/hr .Q24H [facility] Administration Protocol Insulin Human Lispro 0 units 07/08/18 07:30 07/08/18 08:00 Humalog SC Not Given ACHS [facility] Protocol Lacosamide 50 mg 07/08/18 09:00 07/08/18 09:37 Vimpat PO 50 mg BID [facility] Administration Levothyroxine Sodium 50 mcg 07/08/18 06:30 Synthroid PO DAILY@0630 [facility] Trazodone HCl 50 mg 07/07/18 22:00 07/07/18 22:36 Desyrel PO 50 mg HS [facility] Administration - Patient Studies Lab Studies: Lab Studies 07/08/18 07/08/18 07/08/18 Range/Units 05:46 05:29 04:00 WBC 7.6 (4.8-10.8) K/uL RBC 3.64 L (4.40-5.90) Mil/uL Hgb 12.0 (12.0-18.0) g/dL Hct 35.5 (35.0-51.0) % MCV 97.3 H (80.0-94.0) fl MCH 33.0 H (27.0-31.0) pg MCHC 33.9 (33.0-37.0) g/dL RDW 14.1 (11.5-14.5) % Plt Count 185 (130-400) K/uL MPV (7.2-11.7) fl Neut % (Auto) (50.0-75.0) % Lymph % (Auto) (20.0-40.0) % Woods % (Auto) (0.0-10.0) % Eos % (Auto) (0.0-4.0) % Baso % (Auto) (0.0-2.0) % Neut # (Auto) (1.8-7.0) K/uL Lymph # (Auto) (1.0-4.3) K/uL Woods # (Auto) (0.0-0.8) K/uL Eos # (Auto) (0.0-0.7) K/uL Baso # (Auto) (0.0-0.2) K/uL PT (9.8-13.1) Seconds INR APTT (25.6-37.1) Seconds Sodium 139 (132-148) mmol/l Potassium 4.5 (3.6-5.0) MMOL/L Chloride 102 (98-107) mmol/L Carbon Dioxide 27 (22-30) mmol/L Anion Gap 15 (10-20) BUN 38 H (9-20) mg/dl Creatinine 2.5 H (0.8-1.5) mg/dl Est GFR ( Amer) 30 Est GFR (Non-Af Amer) 24 POC Glucose (mg/dL) 141 H (65-110) mg/dL Random Glucose 143 H (75-110) mg/dL Calcium 9.2 (8.4-10.2) mg/dL Total Bilirubin (0.2-1.3) mg/dl AST (17-59) U/L ALT (21-72) U/L Alkaline Phosphatase (38-126) U/L Troponin I (0.00-0.120) ng/mL Total Protein (6.3-8.2) G/DL Albumin (3.5-5.0) g/dL Globulin (2.2-3.9) gm/dL Albumin/Globulin Ratio (1.0-2.1) Lipase (23-300) U/L Urine Color (YELLOW) Urine Clarity (Clear) Urine pH (5.0-8.0) Ur Specific [place] (1.003-1.030) Urine Protein (NEGATIVE) mg/dL Urine Glucose (UA) (Normal) mg/dL Urine Ketones (NEGATIVE) mg/dL Urine Blood (NEGATIVE) Urine Nitrate (NEGATIVE) Urine Bilirubin (NEGATIVE) Urine Urobilinogen (0.2-1.0) mg/dL Ur Leukocyte Esterase (Negative) Juancarlos/uL Urine RBC (Auto) (0-3) /hpf Urine Microscopic WBC (0-5) /hpf Hyaline Casts (0-2) /hpf 07/08/18 07/07/18 07/07/18 Range/Units 01:30 21:31 18:58 WBC (4.8-10.8) K/uL RBC (4.40-5.90) Mil/uL Hgb (12.0-18.0) g/dL Hct (35.0-51.0) % MCV (80.0-94.0) fl MCH (27.0-31.0) pg MCHC (33.0-37.0) g/dL RDW (11.5-14.5) % Plt Count (130-400) K/uL MPV (7.2-11.7) fl Neut % (Auto) (50.0-75.0) % Lymph % (Auto) (20.0-40.0) % Woods % (Auto) (0.0-10.0) % Eos % (Auto) (0.0-4.0) % Baso % (Auto) (0.0-2.0) % Neut # (Auto) (1.8-7.0) K/uL Lymph # (Auto) (1.0-4.3) K/uL Woods # (Auto) (0.0-0.8) K/uL Eos # (Auto) (0.0-0.7) K/uL Baso # (Auto) (0.0-0.2) K/uL PT 12.2 (9.8-13.1) Seconds INR 1.1 APTT 29.4 (25.6-37.1) Seconds Sodium (132-148) mmol/l Potassium (3.6-5.0) MMOL/L Chloride (98-107) mmol/L Carbon Dioxide (22-30) mmol/L Anion Gap (10-20) BUN (9-20) mg/dl Creatinine (0.8-1.5) mg/dl Est GFR ( Amer) Est GFR (Non-Af Amer) POC Glucose (mg/dL) (65-110) mg/dL Random Glucose (75-110) mg/dL Calcium (8.4-10.2) mg/dL Total Bilirubin (0.2-1.3) mg/dl AST (17-59) U/L ALT (21-72) U/L Alkaline Phosphatase (38-126) U/L Troponin I 94.3000 H* (0.00-0.120) ng/mL Total Protein (6.3-8.2) G/DL Albumin (3.5-5.0) g/dL Globulin (2.2-3.9) gm/dL Albumin/Globulin Ratio (1.0-2.1) Lipase (23-300) U/L Urine Color Yellow (YELLOW) Urine Clarity Clear (Clear) Urine pH 6.0 (5.0-8.0) Ur Specific [place] 1.013 (1.003-1.030) Urine Protein Negative (NEGATIVE) mg/dL Urine Glucose (UA) Neg (Normal) mg/dL Urine Ketones Negative (NEGATIVE) mg/dL Urine Blood Negative (NEGATIVE) Urine Nitrate Negative (NEGATIVE) Urine Bilirubin Negative (NEGATIVE) Urine Urobilinogen 0.2-1.0 (0.2-1.0) mg/dL Ur Leukocyte Esterase Neg (Negative) Juancarlos/uL Urine RBC (Auto) 1 (0-3) /hpf Urine Microscopic WBC 1 (0-5) /hpf Hyaline Casts 6-10 H (0-2) /hpf 07/07/18 07/07/18 07/07/18 Range/Units 18:58 18:58 18:52 WBC 8.7 (4.8-10.8) K/uL RBC 4.02 L (4.40-5.90) Mil/uL Hgb 13.1 (12.0-18.0) g/dL Hct 39.1 (35.0-51.0) % MCV 97.3 H D (80.0-94.0) fl MCH 32.6 H (27.0-31.0) pg MCHC 33.5 (33.0-37.0) g/dL RDW 14.5 (11.5-14.5) % Plt Count 211 (130-400) K/uL MPV 8.5 (7.2-11.7) fl Neut % (Auto) 79.9 H (50.0-75.0) % Lymph % (Auto) 11.5 L (20.0-40.0) % Woods % (Auto) 6.5 (0.0-10.0) % Eos % (Auto) 1.9 (0.0-4.0) % Baso % (Auto) 0.2 (0.0-2.0) % Neut # (Auto) 7.0 (1.8-7.0) K/uL Lymph # (Auto) 1.0 (1.0-4.3) K/uL Woods # (Auto) 0.6 (0.0-0.8) K/uL Eos # (Auto) 0.2 (0.0-0.7) K/uL Baso # (Auto) 0.0 (0.0-0.2) K/uL PT (9.8-13.1) Seconds INR APTT (25.6-37.1) Seconds Sodium 141 (132-148) mmol/l Potassium 4.9 (3.6-5.0) MMOL/L Chloride 101 (98-107) mmol/L Carbon Dioxide 27 (22-30) mmol/L Anion Gap 18 (10-20) BUN 37 H (9-20) mg/dl Creatinine 2.7 H (0.8-1.5) mg/dl Est GFR ( Amer) 27 Est GFR (Non-Af Amer) 22 POC Glucose (mg/dL) 191 H (65-110) mg/dL Random Glucose 178 H (75-110) mg/dL Calcium 9.3 (8.4-10.2) mg/dL Total Bilirubin 0.5 (0.2-1.3) mg/dl AST 95 H D (17-59) U/L ALT 30 (21-72) U/L Alkaline Phosphatase 137 H D (38-126) U/L Troponin I 7.9600 H* (0.00-0.120) ng/mL Total Protein 7.3 (6.3-8.2) G/DL Albumin 4.2 (3.5-5.0) g/dL Globulin 3.1 (2.2-3.9) gm/dL Albumin/Globulin Ratio 1.4 (1.0-2.1) Lipase 95 (23-300) U/L Urine Color (YELLOW) Urine Clarity (Clear) Urine pH (5.0-8.0) Ur Specific [place] (1.003-1.030) Urine Protein (NEGATIVE) mg/dL Urine Glucose (UA) (Normal) mg/dL Urine Ketones (NEGATIVE) mg/dL Urine Blood (NEGATIVE) Urine Nitrate (NEGATIVE) Urine Bilirubin (NEGATIVE) Urine Urobilinogen (0.2-1.0) mg/dL Ur Leukocyte Esterase (Negative) Juancarlos/uL Urine RBC (Auto) (0-3) /hpf Urine Microscopic WBC (0-5) /hpf Hyaline Casts (0-2) /hpf Laboratory Results - last 24 hr 07/07/18 07/07/18 07/07/18 18:52 18:58 18:58 WBC 8.7 RBC 4.02 L Hgb 13.1 Hct 39.1 MCV 97.3 H D MCH 32.6 H MCHC 33.5 RDW 14.5 Plt Count 211 MPV 8.5 Neut % (Auto) 79.9 H Lymph % (Auto) 11.5 L Woods % (Auto) 6.5 Eos % (Auto) 1.9 Baso % (Auto) 0.2 Neut # (Auto) 7.0 Lymph # (Auto) 1.0 Woods # (Auto) 0.6 Eos # (Auto) 0.2 Baso # (Auto) 0.0 PT INR APTT Sodium 141 Potassium 4.9 Chloride 101 Carbon Dioxide 27 Anion Gap 18 BUN 37 H Creatinine 2.7 H Est GFR ( Amer) 27 Est GFR (Non-Af Amer) 22 POC Glucose (mg/dL) 191 H Random Glucose 178 H Calcium 9.3 Total Bilirubin 0.5 AST 95 H D ALT 30 Alkaline Phosphatase 137 H D Troponin I 7.9600 H* Total Protein 7.3 Albumin 4.2 Globulin 3.1 Albumin/Globulin Ratio 1.4 Lipase 95 Urine Color Urine Clarity Urine pH Ur Specific [place] Urine Protein Urine Glucose (UA) Urine Ketones Urine Blood Urine Nitrate Urine Bilirubin Urine Urobilinogen Ur Leukocyte Esterase Urine RBC (Auto) Urine Microscopic WBC Hyaline Casts 07/07/18 07/07/18 07/08/18 18:58 21:31 01:30 WBC RBC Hgb Hct MCV MCH MCHC RDW Plt Count MPV Neut % (Auto) Lymph % (Auto) Woods % (Auto) Eos % (Auto) Baso % (Auto) Neut # (Auto) Lymph # (Auto) [place] # (Auto) Eos # (Auto) Baso # (Auto) PT 12.2 INR 1.1 APTT 29.4 Sodium Potassium Chloride Carbon Dioxide Anion Gap BUN Creatinine Est GFR ( Amer) Est GFR (Non-Af Amer) POC Glucose (mg/dL) Random Glucose Calcium Total Bilirubin AST ALT Alkaline Phosphatase Troponin I 94.3000 H* Total Protein Albumin Globulin Albumin/Globulin Ratio Lipase Urine Color Yellow Urine Clarity Clear Urine pH 6.0 Ur Specific [place] 1.013 Urine Protein Negative Urine Glucose (UA) Neg Urine Ketones Negative Urine Blood Negative Urine Nitrate Negative Urine Bilirubin Negative Urine Urobilinogen 0.2-1.0 Ur Leukocyte Esterase Neg Urine RBC (Auto) 1 Urine Microscopic WBC 1 Hyaline Casts 6-10 H 07/08/18 07/08/18 07/08/18 04:00 05:29 05:46 WBC 7.6 RBC 3.64 L Hgb 12.0 Hct 35.5 MCV 97.3 H MCH 33.0 H MCHC 33.9 RDW 14.1 Plt Count 185 MPV Neut % (Auto) Lymph % (Auto) Woods % (Auto) Eos % (Auto) Baso % (Auto) Neut # (Auto) Lymph # (Auto) Woods # (Auto) Eos # (Auto) Baso # (Auto) PT INR APTT Sodium 139 Potassium 4.5 Chloride 102 Carbon Dioxide 27 Anion Gap 15 BUN 38 H Creatinine 2.5 H Est GFR ( Amer) 30 Est GFR (Non-Af Amer) 24 POC Glucose (mg/dL) 141 H Random Glucose 143 H Calcium 9.2 Total Bilirubin AST ALT Alkaline Phosphatase Troponin I Total Protein Albumin Globulin Albumin/Globulin Ratio Lipase Urine Color Urine Clarity Urine pH Ur Specific [place] Urine Protein Urine Glucose (UA) Urine Ketones Urine Blood Urine Nitrate Urine Bilirubin Urine Urobilinogen Ur Leukocyte Esterase Urine RBC (Auto) Urine Microscopic WBC Hyaline Casts EKG/Cardiology Studies: Cardiology / EKG Studies 07/07/18 19:56 ELECTROCARDIOGRAM Stat Comment: Mode Of Transportation: Reason For Exam: Abd pain 07/08/18 EKG [ELECTROCARDIOGRAM] Stat Comment: Mode Of Transportation: Reason For Exam: acs EKG [ELECTROCARDIOGRAM] Stat Comment: Mode Of Transportation: Reason For Exam: acs Fingerstick Blood Sugar Results: 143 Review of Systems - Review of Systems Review of Systems: Unable to review all ROS due to patient's expressive aphasia Critical Care Progress Note - Nutrition Nutrition: Nutrition Category Date Time Status Heart Healthy Diet [DIET] Diets 07/07/18 Breakfast Active Assessment/Plan - Assessment and Plan (Free Text) Assessment: 87 yo male w/ pmhx of CVA w/ right hemiplegia, expressive aphasia, CAD, CKD , pacemaker placement admitted to ICU last night for NSTEMI, currently on heparin drip. Pending further recommendation by deputy director of finance. NSTEMI -Computer Forensics Investigator Dr. Gooden on board -Troponin levels: 7.95, 94.3 and 71.2 -Ekgs: ventricular paced rhythm, no discordant ST segment elevations greater than 5mm -On heparin drip -c/w aspirin 81 mg po daily -c/w plavix 75 mg po daily -start atorvastatin 40 mg po daily -c/w Coreg 6.25 mg po q12 -Repeat EKG this morning -Further recommendation as per deputy director of finance DMII: -Continue w/ current management -Glyburide 5 mg po daily -insulin humalog ACHS DVT prophylaxis: on heparin drip for ACS GI prophylaxis: <Syed Willams M - Last Filed: 07/08/18 12:28> CCU Objective - Vital Signs / Intake & Output Vital Signs (Last 4 hours): Vital Signs Pulse Resp BP Pulse Ox 07/08/18 10:00 60 14 101/48 L 100 07/08/18 09:27 61 123/59 L Intake and Output (Last 8hrs): Intake & Output 07/07/18 07/08/18 07/08/18 22:59 06:59 14:59 Intake Total 140 230 Output Total 100 300 Balance 40 -70 Weight 275 lb 224 lb Intake: IV 20 Intake, Piggyback 30 Oral 120 200 Output: Urine 100 300 Urine, Voided 100 300 - Medications Active Medications: Active Medications Generic Name Dose Route Start Last Admin Trade Name Freq PRN Reason Stop Dose Admin Acetaminophen 650 mg 07/07/18 21:54 Tylenol 325mg Tab PO Q6 PRN Fever >100.4 F Allopurinol 100 mg 07/08/18 09:00 07/08/18 09:30 Zyloprim PO 100 mg DAILY [facility] Administration Aspirin 81 mg 07/08/18 09:00 07/08/18 09:27 Ecotrin PO 81 mg DAILY [facility] Administration Atorvastatin Calcium 40 mg 07/08/18 10:15 07/08/18 11:08 Lipitor PO 40 mg DAILY [facility] Administration Carvedilol 6.25 mg 07/08/18 09:00 07/08/18 09:27 Coreg PO 6.25 mg Q12 [facility] Administration Clopidogrel Bisulfate 75 mg 07/08/18 09:00 07/08/18 09:29 Plavix PO 75 mg DAILY [facility] Administration Enalapril Maleate 5 mg 07/08/18 09:00 07/08/18 09:29 Vasotec PO 5 mg BID [facility] Administration Glyburide 5 mg 07/08/18 09:00 07/08/18 09:28 Micronase PO 5 mg DAILY [facility] Administration Heparin Sodium/Dextrose 25,000 units in 250 mls @ 10 mls/hr 07/08/18 02:30 03:00 Heparin 25,000 Units/250ml In D5w IV 10 mls/hr .Q24H [facility] Administration Protocol Insulin Human Lispro 0 units 07/08/18 07:30 07/08/18 08:00 Humalog SC Not Given ACHS [facility] Protocol Lacosamide 50 mg 07/08/18 09:00 07/08/18 09:37 Vimpat PO 50 mg BID [facility] Administration Levothyroxine Sodium 50 mcg 07/08/18 06:30 Synthroid PO DAILY@0630 [facility] Nystatin 1 applic 07/08/18 13:00 Mycostatin Cream TOP TID [facility] Trazodone HCl 50 mg 07/07/18 22:00 07/07/18 22:36 Desyrel PO 50 mg HS [facility] Administration - Patient Studies Lab Studies: Lab Studies 07/08/18 07/08/18 07/08/18 Range/Units 11:17 09:51 07:15 WBC (4.8-10.8) K/uL RBC (4.40-5.90) Mil/uL Hgb (12.0-18.0) g/dL Hct (35.0-51.0) % MCV (80.0-94.0) fl MCH (27.0-31.0) pg MCHC (33.0-37.0) g/dL RDW (11.5-14.5) % Plt Count (130-400) K/uL MPV (7.2-11.7) fl Neut % (Auto) (50.0-75.0) % Lymph % (Auto) (20.0-40.0) % Woods % (Auto) (0.0-10.0) % Eos % (Auto) (0.0-4.0) % Baso % (Auto) (0.0-2.0) % Neut # (Auto) (1.8-7.0) K/uL Lymph # (Auto) (1.0-4.3) K/uL [place] # (Auto) (0.0-0.8) K/uL Eos # (Auto) (0.0-0.7) K/uL Baso # (Auto) (0.0-0.2) K/uL PT (9.8-13.1) Seconds INR APTT 118.4 H (25.6-37.1) Seconds Sodium (132-148) mmol/l Potassium (3.6-5.0) MMOL/L Chloride (98-107) mmol/L Carbon Dioxide (22-30) mmol/L Anion Gap (10-20) BUN (9-20) mg/dl Creatinine (0.8-1.5) mg/dl Est GFR ( Amer) Est GFR (Non-Af Amer) POC Glucose (mg/dL) 191 H (65-110) mg/dL Random Glucose (75-110) mg/dL Calcium (8.4-10.2) mg/dL Total Bilirubin (0.2-1.3) mg/dl AST (17-59) U/L ALT (21-72) U/L Alkaline Phosphatase (38-126) U/L Troponin I 71.2000 H* (0.00-0.120) ng/mL Total Protein (6.3-8.2) G/DL Albumin (3.5-5.0) g/dL Globulin (2.2-3.9) gm/dL Albumin/Globulin Ratio (1.0-2.1) Lipase (23-300) U/L Urine Color (YELLOW) Urine Clarity (Clear) Urine pH (5.0-8.0) Ur Specific [place] (1.003-1.030) Urine Protein (NEGATIVE) mg/dL Urine Glucose (UA) (Normal) mg/dL Urine Ketones (NEGATIVE) mg/dL Urine Blood (NEGATIVE) Urine Nitrate (NEGATIVE) Urine Bilirubin (NEGATIVE) Urine Urobilinogen (0.2-1.0) mg/dL Ur Leukocyte Esterase (Negative) Juancarlos/uL Urine RBC (Auto) (0-3) /hpf Urine Microscopic WBC (0-5) /hpf Hyaline Casts (0-2) /hpf 07/08/18 07/08/18 07/08/18 Range/Units 05:46 05:29 04:00 WBC 7.6 (4.8-10.8) K/uL RBC 3.64 L (4.40-5.90) Mil/uL Hgb 12.0 (12.0-18.0) g/dL Hct 35.5 (35.0-51.0) % MCV 97.3 H (80.0-94.0) fl MCH 33.0 H (27.0-31.0) pg MCHC 33.9 (33.0-37.0) g/dL RDW 14.1 (11.5-14.5) % Plt Count 185 (130-400) K/uL MPV (7.2-11.7) fl Neut % (Auto) (50.0-75.0) % Lymph % (Auto) (20.0-40.0) % Woods % (Auto) (0.0-10.0) % Eos % (Auto) (0.0-4.0) % Baso % (Auto) (0.0-2.0) % Neut # (Auto) (1.8-7.0) K/uL Lymph # (Auto) (1.0-4.3) K/uL [place] # (Auto) (0.0-0.8) K/uL Eos # (Auto) (0.0-0.7) K/uL Baso # (Auto) (0.0-0.2) K/uL PT (9.8-13.1) Seconds INR APTT (25.6-37.1) Seconds Sodium 139 (132-148) mmol/l Potassium 4.5 (3.6-5.0) MMOL/L Chloride 102 (98-107) mmol/L Carbon Dioxide 27 (22-30) mmol/L Anion Gap 15 (10-20) BUN 38 H (9-20) mg/dl Creatinine 2.5 H (0.8-1.5) mg/dl Est GFR ( Amer) 30 Est GFR (Non-Af Amer) 24 POC Glucose (mg/dL) 141 H (65-110) mg/dL Random Glucose 143 H (75-110) mg/dL Calcium 9.2 (8.4-10.2) mg/dL Total Bilirubin (0.2-1.3) mg/dl AST (17-59) U/L ALT (21-72) U/L Alkaline Phosphatase (38-126) U/L Troponin I (0.00-0.120) ng/mL Total Protein (6.3-8.2) G/DL Albumin (3.5-5.0) g/dL Globulin (2.2-3.9) gm/dL Albumin/Globulin Ratio (1.0-2.1) Lipase (23-300) U/L Urine Color (YELLOW) Urine Clarity (Clear) Urine pH (5.0-8.0) Ur Specific [place] (1.003-1.030) Urine Protein (NEGATIVE) mg/dL Urine Glucose (UA) (Normal) mg/dL Urine Ketones (NEGATIVE) mg/dL Urine Blood (NEGATIVE) Urine Nitrate (NEGATIVE) Urine Bilirubin (NEGATIVE) Urine Urobilinogen (0.2-1.0) mg/dL Ur Leukocyte Esterase (Negative) Juancarlos/uL Urine RBC (Auto) (0-3) /hpf Urine Microscopic WBC (0-5) /hpf Hyaline Casts (0-2) /hpf 07/08/18 07/07/18 07/07/18 Range/Units 01:30 21:31 18:58 WBC (4.8-10.8) K/uL RBC (4.40-5.90) Mil/uL Hgb (12.0-18.0) g/dL Hct (35.0-51.0) % MCV (80.0-94.0) fl MCH (27.0-31.0) pg MCHC (33.0-37.0) g/dL RDW (11.5-14.5) % Plt Count (130-400) K/uL MPV (7.2-11.7) fl Neut % (Auto) (50.0-75.0) % Lymph % (Auto) (20.0-40.0) % Woods % (Auto) (0.0-10.0) % Eos % (Auto) (0.0-4.0) % Baso % (Auto) (0.0-2.0) % Neut # (Auto) (1.8-7.0) K/uL Lymph # (Auto) (1.0-4.3) K/uL [place] # (Auto) (0.0-0.8) K/uL Eos # (Auto) (0.0-0.7) K/uL Baso # (Auto) (0.0-0.2) K/uL PT 12.2 (9.8-13.1) Seconds INR 1.1 APTT 29.4 (25.6-37.1) Seconds Sodium (132-148) mmol/l Potassium (3.6-5.0) MMOL/L Chloride (98-107) mmol/L Carbon Dioxide (22-30) mmol/L Anion Gap (10-20) BUN (9-20) mg/dl Creatinine (0.8-1.5) mg/dl Est GFR ( Amer) Est GFR (Non-Af Amer) POC Glucose (mg/dL) (65-110) mg/dL Random Glucose (75-110) mg/dL Calcium (8.4-10.2) mg/dL Total Bilirubin (0.2-1.3) mg/dl AST (17-59) U/L ALT (21-72) U/L Alkaline Phosphatase (38-126) U/L Troponin I 94.3000 H* (0.00-0.120) ng/mL Total Protein (6.3-8.2) G/DL Albumin (3.5-5.0) g/dL Globulin (2.2-3.9) gm/dL Albumin/Globulin Ratio (1.0-2.1) Lipase (23-300) U/L Urine Color Yellow (YELLOW) Urine Clarity Clear (Clear) Urine pH 6.0 (5.0-8.0) Ur Specific [place] 1.013 (1.003-1.030) Urine Protein Negative (NEGATIVE) mg/dL Urine Glucose (UA) Neg (Normal) mg/dL Urine Ketones Negative (NEGATIVE) mg/dL Urine Blood Negative (NEGATIVE) Urine Nitrate Negative (NEGATIVE) Urine Bilirubin Negative (NEGATIVE) Urine Urobilinogen 0.2-1.0 (0.2-1.0) mg/dL Ur Leukocyte Esterase Neg (Negative) Ju[place]arlos/uL Urine RBC (Auto) 1 (0-3) /hpf Urine Microscopic WBC 1 (0-5) /hpf Hyaline Casts 6-10 H (0-2) /hpf 07/07/18 07/07/18 07/07/18 Range/Units 18:58 18:58 18:52 WBC 8.7 (4.8-10.8) K/uL RBC 4.02 L (4.40-5.90) Mil/uL Hgb 13.1 (12.0-18.0) g/dL Hct 39.1 (35.0-51.0) % MCV 97.3 H D (80.0-94.0) fl MCH 32.6 H (27.0-31.0) pg MCHC 33.5 (33.0-37.0) g/dL RDW 14.5 (11.5-14.5) % Plt Count 211 (130-400) K/uL MPV 8.5 (7.2-11.7) fl Neut % (Auto) 79.9 H (50.0-75.0) % Lymph % (Auto) 11.5 L (20.0-40.0) % Woods % (Auto) 6.5 (0.0-10.0) % Eos % (Auto) 1.9 (0.0-4.0) % Baso % (Auto) 0.2 (0.0-2.0) % Neut # (Auto) 7.0 (1.8-7.0) K/uL Lymph # (Auto) 1.0 (1.0-4.3) K/uL Woods # (Auto) 0.6 (0.0-0.8) K/uL Eos # (Auto) 0.2 (0.0-0.7) K/uL Baso # (Auto) 0.0 (0.0-0.2) K/uL PT (9.8-13.1) Seconds INR APTT (25.6-37.1) Seconds Sodium 141 (132-148) mmol/l Potassium 4.9 (3.6-5.0) MMOL/L Chloride 101 (98-107) mmol/L Carbon Dioxide 27 (22-30) mmol/L Anion Gap 18 (10-20) BUN 37 H (9-20) mg/dl Creatinine 2.7 H (0.8-1.5) mg/dl Est GFR ( Amer) 27 Est GFR (Non-Af Amer) 22 POC Glucose (mg/dL) 191 H (65-110) mg/dL Random Glucose 178 H (75-110) mg/dL Calcium 9.3 (8.4-10.2) mg/dL Total Bilirubin 0.5 (0.2-1.3) mg/dl AST 95 H D (17-59) U/L ALT 30 (21-72) U/L Alkaline Phosphatase 137 H D (38-126) U/L Troponin I 7.9600 H* (0.00-0.120) ng/mL Total Protein 7.3 (6.3-8.2) G/DL Albumin 4.2 (3.5-5.0) g/dL Globulin 3.1 (2.2-3.9) gm/dL Albumin/Globulin Ratio 1.4 (1.0-2.1) Lipase 95 (23-300) U/L Urine Color (YELLOW) Urine Clarity (Clear) Urine pH (5.0-8.0) Ur Specific [place] (1.003-1.030) Urine Protein (NEGATIVE) mg/dL Urine Glucose (UA) (Normal) mg/dL Urine Ketones (NEGATIVE) mg/dL Urine Blood (NEGATIVE) Urine Nitrate (NEGATIVE) Urine Bilirubin (NEGATIVE) Urine Urobilinogen (0.2-1.0) mg/dL Ur Leukocyte Esterase (Negative) [place]/uL Urine RBC (Auto) (0-3) /hpf Urine Microscopic WBC (0-5) /hpf Hyaline Casts (0-2) /hpf Laboratory Results - last 24 hr 07/07/18 07/07/18 07/07/18 18:52 18:58 18:58 WBC 8.7 RBC 4.02 L Hgb 13.1 Hct 39.1 MCV 97.3 H D MCH 32.6 H MCHC 33.5 RDW 14.5 Plt Count 211 MPV 8.5 Neut % (Auto) 79.9 H Lymph % (Auto) 11.5 L [place] % (Auto) 6.5 Eos % (Auto) 1.9 Baso % (Auto) 0.2 Neut # (Auto) 7.0 Lymph # (Auto) 1.0 Woods # (Auto) 0.6 Eos # (Auto) 0.2 Baso # (Auto) 0.0 PT INR APTT Sodium 141 Potassium 4.9 Chloride 101 Carbon Dioxide 27 Anion Gap 18 BUN 37 H Creatinine 2.7 H Est GFR ( Amer) 27 Est GFR (Non-Af Amer) 22 POC Glucose (mg/dL) 191 H Random Glucose 178 H Calcium 9.3 Total Bilirubin 0.5 AST 95 H D ALT 30 Alkaline Phosphatase 137 H D Troponin I 7.9600 H* Total Protein 7.3 Albumin 4.2 Globulin 3.1 Albumin/Globulin Ratio 1.4 Lipase 95 Urine Color Urine Clarity Urine pH Ur Specific [place] Urine Protein Urine Glucose (UA) Urine Ketones Urine Blood Urine Nitrate Urine Bilirubin Urine Urobilinogen Ur Leukocyte Esterase Urine RBC (Auto) Urine Microscopic WBC Hyaline Casts 07/07/18 07/07/18 07/08/18 18:58 21:31 01:30 WBC RBC Hgb Hct MCV MCH MCHC RDW Plt Count MPV Neut % (Auto) Lymph % (Auto) Woods % (Auto) Eos % (Auto) Baso % (Auto) Neut # (Auto) Lymph # (Auto) [place] # (Auto) Eos # (Auto) Baso # (Auto) PT 12.2 INR 1.1 APTT 29.4 Sodium Potassium Chloride Carbon Dioxide Anion Gap BUN Creatinine Est GFR ( Amer) Est GFR (Non-Af Amer) POC Glucose (mg/dL) Random Glucose Calcium Total Bilirubin AST ALT Alkaline Phosphatase Troponin I 94.3000 H* Total Protein Albumin Globulin Albumin/Globulin Ratio Lipase Urine Color Yellow Urine Clarity Clear Urine pH 6.0 Ur Specific [place] 1.013 Urine Protein Negative Urine Glucose (UA) Neg Urine Ketones Negative Urine Blood Negative Urine Nitrate Negative Urine Bilirubin Negative Urine Urobilinogen 0.2-1.0 Ur Leukocyte Esterase Neg Urine RBC (Auto) 1 Urine Microscopic WBC 1 Hyaline Casts 6-10 H 07/08/18 07/08/18 07/08/18 04:00 05:29 05:46 WBC 7.6 RBC 3.64 L Hgb 12.0 Hct 35.5 MCV 97.3 H MCH 33.0 H MCHC 33.9 RDW 14.1 Plt Count 185 MPV Neut % (Auto) Lymph % (Auto) [place] % (Auto) Eos % (Auto) Baso % (Auto) Neut # (Auto) Lymph # (Auto) [place] # (Auto) Eos # (Auto) Baso # (Auto) PT INR APTT Sodium 139 Potassium 4.5 Chloride 102 Carbon Dioxide 27 Anion Gap 15 BUN 38 H Creatinine 2.5 H Est GFR ( Amer) 30 Est GFR (Non-Af Amer) 24 POC Glucose (mg/dL) 141 H Random Glucose 143 H Calcium 9.2 Total Bilirubin AST ALT Alkaline Phosphatase Troponin I Total Protein Albumin Globulin Albumin/Globulin Ratio Lipase Urine Color Urine Clarity Urine pH Ur Specific [place] Urine Protein Urine Glucose (UA) Urine Ketones Urine Blood Urine Nitrate Urine Bilirubin Urine Urobilinogen Ur Leukocyte Esterase Urine RBC (Auto) Urine Microscopic WBC Hyaline Casts 07/08/18 07/08/18 07/08/18 07:15 09:51 11:17 WBC RBC Hgb Hct MCV MCH MCHC RDW Plt Count MPV Neut % (Auto) Lymph % (Auto) [place] % (Auto) Eos % (Auto) Baso % (Auto) Neut # (Auto) Lymph # (Auto) [place] # (Auto) Eos # (Auto) Baso # (Auto) PT INR APTT 118.4 H Sodium Potassium Chloride Carbon Dioxide Anion Gap BUN Creatinine Est GFR ( Amer) Est GFR (Non-Af Amer) POC Glucose (mg/dL) 191 H Random Glucose Calcium Total Bilirubin AST ALT Alkaline Phosphatase Troponin I 71.2000 H* Total Protein Albumin Globulin Albumin/Globulin Ratio Lipase Urine Color Urine Clarity Urine pH Ur Specific [place] Urine Protein Urine Glucose (UA) Urine Ketones Urine Blood Urine Nitrate Urine Bilirubin Urine Urobilinogen Ur Leukocyte Esterase Urine RBC (Auto) Urine Microscopic WBC Hyaline Casts EKG/Cardiology Studies: Cardiology / EKG Studies 07/07/18 19:56 ELECTROCARDIOGRAM Stat Comment: Mode Of Transportation: Reason For Exam: Abd pain 07/08/18 EKG [ELECTROCARDIOGRAM] Stat Comment: Mode Of Transportation: Reason For Exam: acs EKG [ELECTROCARDIOGRAM] Stat Comment: Mode Of Transportation: Reason For Exam: acs Critical Care Progress Note - Nutrition Nutrition: Nutrition Category Date Time Status Heart Healthy Diet [DIET] Diets 07/07/18 Breakfast Active Attending/Attestation - Attestation I have personally seen and examined this patient.: Yes I have fully participated in the care of the patient.: Yes I have reviewed all pertinent clinical information: Yes Notes (Text): 07/08/18 12:28 Today: Sunday, July 08, 2018 The patient was Seen/interviewed and examined by me at the bedside during ICU round, Medical records reviewed and Management issues were discussed and formulated with the house staff. Events reviewed I have reviewed all the relevant clinical, laboratory, hemodynamic, radiographic data and medications Pain issues, skin care, head of the bed elevation, glycemic control were addressed. I concur with resident's assessment and plan of care as transcribed in Dr. Mcfadden note.
--- NOTE | 2018-07-08 10:30 | CP.PCM.HP ---
History of Present Illness - History of Present Illness History of Present Illness: 87 y/o w/m admitted with NSTEMI ( PT is aphasic secondary to Old CVA ) Hx obtained from Pt developed abdominal discomfort associated with diaphoresis 1 day [employer] Troponins: elevated EKG : PMR PMH: 04/25/2007 CVA with aphasia and Right Hemiplegia Hypertension NIDDM Seizure Disorder 07/03/2016 Perm PM insertion CRF Stage 3 Present on Admission - Present on Admission Any Indicators Present on Admission: Yes History of Uncontrolled Diabetes: Yes Review of Systems - Constitutional Constitutional: Malaise Past Patient History - Infectious Disease Hx of Infectious Diseases: None - Past Medical History & Family History Past Medical History?: Yes - Past Social History Smoking Status: Former Smoker - CARDIAC Hx Cardia Arrhythmia: Yes (CHB in January) Hx Hypercholesterolemia: Yes Hx Hypertension: Yes Hx Pacemaker: Yes - PULMONARY Hx Respiratory Disorders: No - NEUROLOGICAL HX Cerebrovascular Accident: Yes Hx Seizures: Yes Hx Transient Ischemic Attacks (TIA): Yes - HEENT Hx Cataracts: Yes - RENAL Hx Chronic Kidney Disease: Yes - ENDOCRINE/METABOLIC Hx Endocrine Disorders: Yes Hx Diabetes Mellitus Type 2: Yes - HEMATOLOGICAL/ONCOLOGICAL Hx AIDS: No Hx Human Immunodeficiency Virus (HIV): No - INTEGUMENTARY Hx Dermatological Problems: Yes Other/Comment: Hx skin cancer - MUSCULOSKELETAL/RHEUMATOLOGICAL Hx Arthritis: Yes Hx Falls: No - GASTROINTESTINAL Hx Gastrointestinal Disorders: No - GENITOURINARY/GYNECOLOGICAL Hx Genitourinary Disorders: No - PSYCHIATRIC Hx Psychophysiologic Disorder: No Hx Substance Use: No - SURGICAL HISTORY Hx Coronary Stent: Yes - ANESTHESIA Hx Anesthesia: Yes Hx Anesthesia Reactions: No Has any member of the family had a problem w/ anesthesia?: No Meds Allergies/Adverse Reactions: Allergies Allergy/AdvReac Type Severity Reaction Status Date / Time No Known Allergies Allergy Verified 02/12/16 15:29 Physical Exam - Constitutional Appears: Well - Head Exam Head Exam: ATRAUMATIC - Eye Exam Eye Exam: Normal appearance - Respiratory Exam Respiratory Exam: NORMAL BREATHING PATTERN - Cardiovascular Exam Cardiovascular Exam: REGULAR RHYTHM Results - Vital Signs Recent Vital Signs: Last Vital Signs Temp 98.4 F 07/08/18 08:00 Pulse 61 07/08/18 09:27 Resp 21 07/08/18 08:00 BP 123/59 L 07/08/18 09:27 Pulse Ox 100 08/14/18 08:00 - Labs Result Diagrams: 07/08/18 04:00 07/08/18 05:46 Labs: Laboratory Results - last 24 hr 07/07/18 07/07/18 07/07/18 18:52 18:58 18:58 WBC 8.7 RBC 4.02 L Hgb 13.1 Hct 39.1 MCV 97.3 H D MCH 32.6 H MCHC 33.5 RDW 14.5 Plt Count 211 MPV 8.5 Neut % (Auto) 79.9 H Lymph % (Auto) 11.5 L [place] % (Auto) 6.5 Eos % (Auto) 1.9 Baso % (Auto) 0.2 Neut # (Auto) 7.0 Lymph # (Auto) 1.0 [place] # (Auto) 0.6 Eos # (Auto) 0.2 Baso # (Auto) 0.0 PT INR APTT Sodium 141 Potassium 4.9 Chloride 101 Carbon Dioxide 27 Anion Gap 18 BUN 37 H Creatinine 2.7 H Est GFR ( Amer) 27 Est GFR (Non-Af Amer) 22 POC Glucose (mg/dL) 191 H Random Glucose 178 H Calcium 9.3 Total Bilirubin 0.5 AST 95 H D ALT 30 Alkaline Phosphatase 137 H D Troponin I 7.9600 H* Total Protein 7.3 Albumin 4.2 Globulin 3.1 Albumin/Globulin Ratio 1.4 Lipase 95 Urine Color Urine Clarity Urine pH Ur Specific [place] Urine Protein Urine Glucose (UA) Urine Ketones Urine Blood Urine Nitrate Urine Bilirubin Urine Urobilinogen Ur Leukocyte Esterase Urine RBC (Auto) Urine Microscopic WBC Hyaline Casts 07/07/18 07/07/18 07/08/18 18:58 21:31 01:30 WBC RBC Hgb Hct MCV MCH MCHC RDW Plt Count MPV Neut % (Auto) Lymph % (Auto) [place] % (Auto) Eos % (Auto) Baso % (Auto) Neut # (Auto) Lymph # (Auto) [place] # (Auto) Eos # (Auto) Baso # (Auto) PT 12.2 INR 1.1 APTT 29.4 Sodium Potassium Chloride Carbon Dioxide Anion Gap BUN Creatinine Est GFR ( Amer) Est GFR (Non-Af Amer) POC Glucose (mg/dL) Random Glucose Calcium Total Bilirubin AST ALT Alkaline Phosphatase Troponin I 94.3000 H* Total Protein Albumin Globulin Albumin/Globulin Ratio Lipase Urine Color Yellow Urine Clarity Clear Urine pH 6.0 Ur Specific [place] 1.013 Urine Protein Negative Urine Glucose (UA) Neg Urine Ketones Negative Urine Blood Negative Urine Nitrate Negative Urine Bilirubin Negative Urine Urobilinogen 0.2-1.0 Ur Leukocyte Esterase Neg Urine RBC (Auto) 1 Urine Microscopic WBC 1 Hyaline Casts 6-10 H 07/08/18 07/08/18 07/08/18 04:00 05:29 05:46 WBC 7.6 RBC 3.64 L Hgb 12.0 Hct 35.5 MCV 97.3 H MCH 33.0 H MCHC 33.9 RDW 14.1 Plt Count 185 MPV Neut % (Auto) Lymph % (Auto) [place] % (Auto) Eos % (Auto) Baso % (Auto) Neut # (Auto) Lymph # (Auto) [place] # (Auto) Eos # (Auto) Baso # (Auto) PT INR APTT Sodium 139 Potassium 4.5 Chloride 102 Carbon Dioxide 27 Anion Gap 15 BUN 38 H Creatinine 2.5 H Est GFR ( Amer) 30 Est GFR (Non-Af Amer) 24 POC Glucose (mg/dL) 141 H Random Glucose 143 H Calcium 9.2 Total Bilirubin AST ALT Alkaline Phosphatase Troponin I Total Protein Albumin Globulin Albumin/Globulin Ratio Lipase Urine Color Urine Clarity Urine pH Ur Specific [place] Urine Protein Urine Glucose (UA) Urine Ketones Urine Blood Urine Nitrate Urine Bilirubin Urine Urobilinogen Ur Leukocyte Esterase Urine RBC (Auto) Urine Microscopic WBC Hyaline Casts 07/08/18 07:15 WBC RBC Hgb Hct MCV MCH MCHC RDW Plt Count MPV Neut % (Auto) Lymph % (Auto) [place] % (Auto) Eos % (Auto) Baso % (Auto) Neut # (Auto) Lymph # (Auto) [place] # (Auto) Eos # (Auto) Baso # (Auto) PT INR APTT Sodium Potassium Chloride Carbon Dioxide Anion Gap BUN Creatinine Est GFR ( Amer) Est GFR (Non-Af Amer) POC Glucose (mg/dL) Random Glucose Calcium Total Bilirubin AST ALT Alkaline Phosphatase Troponin I 71.2000 H* Total Protein Albumin Globulin Albumin/Globulin Ratio Lipase Urine Color Urine Clarity Urine pH Ur Specific [place] Urine Protein Urine Glucose (UA) Urine Ketones Urine Blood Urine Nitrate Urine Bilirubin Urine Urobilinogen Ur Leukocyte Esterase Urine RBC (Auto) Urine Microscopic WBC Hyaline Casts Assessment & Plan (1) Non-ST elevation (NSTEMI) myocardial infarction Assessment and Plan: I have recommended a consult with Dr Gooden for possible catherization Status: Acute (2) Controlled type 2 diabetes mellitus Status: Acute (3) Essential (primary) hypertension Status: Acute (4) Hemiplegia affecting dominant side, post-stroke Status: Acute (5) History of permanent cardiac pacemaker placement Status: Acute (6) CKD (chronic kidney disease) stage 3, GFR 30-59 ml/min Status: Chronic Priority: Medium
--- NOTE | 2018-07-08 10:33 | CP.PCM.CON ---
History of Present Illness - History of Present Illness History of Present Illness: Consultstion for NSTEMI HPI: 87-year-old male with past medical history significant for CAD status post PTCA stenting about 10 years ago CVA with residual right-sided weakness very limited activity at baseline mostly able to walk around the house with the help of a wheelchair and walker who presented with complains of diaphoretic spell and epigastric discomfort a day prior to presentation he had a a phasic stroke with mild recovery with severe right-sided hemiplegia and a seizure disorder. According to the who was sitting on his bedside he has very minimal activity denied having any chest pains that was the episode of diaphoretic spell was recorded her concerning and came to the emergency room initial troponin was 17 subsequently peaked up to 80. Currently living in the ICU in no apparent discomfort hemodynamic somewhat stable. EKG showed paced ventricular rhythm. Pt referred by for evaluation and treatment Review of Systems - Review of Systems Systems not reviewed;Unavailable: Acuity of Condition - Constitutional Constitutional: As Per HPI - EENT Eyes: As Per HPI Ears: As Per HPI Nose/Mouth/Throat: As Per HPI - Cardiovascular Cardiovascular: As Per HPI - Respiratory Respiratory: As Per HPI - Gastrointestinal Gastrointestinal: As Per HPI - Genitourinary Genitourinary: As Per HPI - Reproductive: Male Reproductive:Male: As Per HPI - Musculoskeletal Musculoskeletal: As Per HPI - Integumentary Integumentary: As Per HPI - Neurological Neurological: As Per HPI - Psychiatric Psychiatric: As Per HPI - Endocrine Endocrine: As Per HPI - Hematologic/Lymphatic Hematologic: As Per HPI Past Patient History - Infectious Disease Hx of Infectious Diseases: None - Past Medical History & Family History Past Medical History?: Yes - Past Social History Smoking Status: Former Smoker - CARDIAC Hx Cardia Arrhythmia: Yes (CHB in January) Hx Hypercholesterolemia: Yes Hx Hypertension: Yes Hx Pacemaker: Yes - PULMONARY Hx Respiratory Disorders: No - NEUROLOGICAL HX Cerebrovascular Accident: Yes Hx Seizures: Yes Hx Transient Ischemic Attacks (TIA): Yes - HEENT Hx Cataracts: Yes - RENAL Hx Chronic Kidney Disease: Yes - ENDOCRINE/METABOLIC Hx Endocrine Disorders: Yes Hx Diabetes Mellitus Type 2: Yes - HEMATOLOGICAL/ONCOLOGICAL Hx AIDS: No Hx Human Immunodeficiency Virus (HIV): No - INTEGUMENTARY Hx Dermatological Problems: Yes Other/Comment: Hx skin cancer - MUSCULOSKELETAL/RHEUMATOLOGICAL Hx Arthritis: Yes Hx Falls: No - GASTROINTESTINAL Hx Gastrointestinal Disorders: No - GENITOURINARY/GYNECOLOGICAL Hx Genitourinary Disorders: No - PSYCHIATRIC Hx Psychophysiologic Disorder: No Hx Substance Use: No - SURGICAL HISTORY Hx Coronary Stent: Yes - ANESTHESIA Hx Anesthesia: Yes Hx Anesthesia Reactions: No Has any member of the family had a problem w/ anesthesia?: No Meds Allergies/Adverse Reactions: Allergies Allergy/AdvReac Type Severity Reaction Status Date / Time No Known Allergies Allergy Verified 02/12/16 15:29 - Medications Medications: Current Medications Acetaminophen (Tylenol 325mg Tab) 650 mg PO Q6 PRN PRN Reason: Fever >100.4 F Allopurinol (Zyloprim) 100 mg PO DAILY [facility] Last Admin: 07/08/18 09:30 Dose: 100 mg Aspirin (Ecotrin) 81 mg PO DAILY [facility] Last Admin: 07/08/18 09:27 Dose: 81 mg Atorvastatin Calcium (Lipitor) 40 mg PO DAILY [facility] Carvedilol (Coreg) 6.25 mg PO Q12 [facility] Last Admin: 07/08/18 09:27 Dose: 6.25 mg Clopidogrel Bisulfate (Plavix) 75 mg PO DAILY [facility] Last Admin: 07/08/18 09:29 Dose: 75 mg Enalapril Maleate (Vasotec) 5 mg PO BID [facility] Last Admin: 07/08/18 09:29 Dose: 5 mg Glyburide (Micronase) 5 mg PO DAILY [facility] Last Admin: 07/08/18 09:28 Dose: 5 mg Heparin Sodium/Dextrose (Heparin 25,000 Units/250ml In D5w) 25,000 units in 250 mls @ 10 mls/hr IV .Q24H [facility] PRN Reason: Protocol Last Admin: 07/08/18 03:00 Dose: 10 mls/hr Insulin Human Lispro (Humalog) 0 units SC ACHS [facility] PRN Reason: Protocol Last Admin: 07/08/18 08:00 Dose: Not Given Lacosamide (Vimpat) 50 mg PO BID [facility] Last Admin: 07/08/18 09:37 Dose: 50 mg Levothyroxine Sodium (Synthroid) 50 mcg PO DAILY@0630 [facility] Trazodone HCl (Desyrel) 50 mg PO HS [facility] Last Admin: 07/07/18 22:36 Dose: 50 mg Physical Exam - Constitutional Appears: Well - Head Exam Head Exam: ATRAUMATIC, NORMAL INSPECTION, NORMOCEPHALIC - Eye Exam Eye Exam: EOMI, Normal appearance, PERRL Pupil Exam: NORMAL ACCOMODATION, PERRL - ENT Exam ENT Exam: Mucous Membranes Moist, Normal Exam - Neck Exam Neck exam: Positive for: Normal Inspection - Respiratory Exam Respiratory Exam: Clear to Auscultation Bilateral, NORMAL BREATHING PATTERN - Cardiovascular Exam Cardiovascular Exam: REGULAR RHYTHM, RRR, +S1, +S2 - GI/Abdominal Exam GI & Abdominal Exam: Normal Bowel Sounds, Soft. absent: Tenderness - Extremities Exam Extremities exam: Positive for: normal inspection - Back Exam Back exam: NORMAL INSPECTION - Neurological Exam Neurological exam: Alert, Motor Sensory Deficit - Psychiatric Exam Psychiatric exam: Normal Affect, Normal Mood - Skin Skin Exam: Dry, Intact, Normal Color, Warm Results - Vital Signs Recent Vital Signs: Last Vital Signs Temp 98.4 F 07/08/18 08:00 Pulse 61 07/08/18 09:27 Resp 21 07/08/18 08:00 BP 123/59 L 07/08/18 09:27 Pulse Ox 100 07/08/18 08:00 - Labs Result Diagrams: 07/08/18 04:00 07/08/18 05:46 Labs: Laboratory Results - last 24 hr 07/07/18 07/07/18 07/07/18 18:52 18:58 18:58 WBC 8.7 RBC 4.02 L Hgb 13.1 Hct 39.1 MCV 97.3 H D MCH 32.6 H MCHC 33.5 RDW 14.5 Plt Count 211 MPV 8.5 Neut % (Auto) 79.9 H Lymph % (Auto) 11.5 L [place] % (Auto) 6.5 Eos % (Auto) 1.9 Baso % (Auto) 0.2 Neut # (Auto) 7.0 Lymph # (Auto) 1.0 [place] # (Auto) 0.6 Eos # (Auto) 0.2 Baso # (Auto) 0.0 PT INR APTT Sodium 141 Potassium 4.9 Chloride 101 Carbon Dioxide 27 Anion Gap 18 BUN 37 H Creatinine 2.7 H Est GFR ( Amer) 27 Est GFR (Non-Af Amer) 22 POC Glucose (mg/dL) 191 H Random Glucose 178 H Calcium 9.3 Total Bilirubin 0.5 AST 95 H D ALT 30 Alkaline Phosphatase 137 H D Troponin I 7.9600 H* Total Protein 7.3 Albumin 4.2 Globulin 3.1 Albumin/Globulin Ratio 1.4 Lipase 95 Urine Color Urine Clarity Urine pH Ur Specific [place] Urine Protein Urine Glucose (UA) Urine Ketones Urine Blood Urine Nitrate Urine Bilirubin Urine Urobilinogen Ur Leukocyte Esterase Urine RBC (Auto) Urine Microscopic WBC Hyaline Casts 07/07/18 07/07/18 07/08/18 18:58 21:31 01:30 WBC RBC Hgb Hct MCV MCH MCHC RDW Plt Count MPV Neut % (Auto) Lymph % (Auto) [place] % (Auto) Eos % (Auto) Baso % (Auto) Neut # (Auto) Lymph # (Auto) [place] # (Auto) Eos # (Auto) Baso # (Auto) PT 12.2 INR 1.1 APTT 29.4 Sodium Potassium Chloride Carbon Dioxide Anion Gap BUN Creatinine Est GFR ( Amer) Est GFR (Non-Af Amer) POC Glucose (mg/dL) Random Glucose Calcium Total Bilirubin AST ALT Alkaline Phosphatase Troponin I 94.3000 H* Total Protein Albumin Globulin Albumin/Globulin Ratio Lipase Urine Color Yellow Urine Clarity Clear Urine pH 6.0 Ur Specific [place] 1.013 Urine Protein Negative Urine Glucose (UA) Neg Urine Ketones Negative Urine Blood Negative Urine Nitrate Negative Urine Bilirubin Negative Urine Urobilinogen 0.2-1.0 Ur Leukocyte Esterase Neg Urine RBC (Auto) 1 Urine Microscopic WBC 1 Hyaline Casts 6-10 H 07/08/18 07/08/18 07/08/18 04:00 05:29 05:46 WBC 7.6 RBC 3.64 L Hgb 12.0 Hct 35.5 MCV 97.3 H MCH 33.0 H MCHC 33.9 RDW 14.1 Plt Count 185 MPV Neut % (Auto) Lymph % (Auto) [place] % (Auto) Eos % (Auto) Baso % (Auto) Neut # (Auto) Lymph # (Auto) [place] # (Auto) Eos # (Auto) Baso # (Auto) PT INR APTT Sodium 139 Potassium 4.5 Chloride 102 Carbon Dioxide 27 Anion Gap 15 BUN 38 H Creatinine 2.5 H Est GFR ( Amer) 30 Est GFR (Non-Af Amer) 24 POC Glucose (mg/dL) 141 H Random Glucose 143 H Calcium 9.2 Total Bilirubin AST ALT Alkaline Phosphatase Troponin I Total Protein Albumin Globulin Albumin/Globulin Ratio Lipase Urine Color Urine Clarity Urine pH Ur Specific [place] Urine Protein Urine Glucose (UA) Urine Ketones Urine Blood Urine Nitrate Urine Bilirubin Urine Urobilinogen Ur Leukocyte Esterase Urine RBC (Auto) Urine Microscopic WBC Hyaline Casts 07/08/18 07:15 WBC RBC Hgb Hct MCV MCH MCHC RDW Plt Count MPV Neut % (Auto) Lymph % (Auto) [place] % (Auto) Eos % (Auto) Baso % (Auto) Neut # (Auto) Lymph # (Auto) [place] # (Auto) Eos # (Auto) Baso # (Auto) PT INR APTT Sodium Potassium Chloride Carbon Dioxide Anion Gap BUN Creatinine Est GFR ( Amer) Est GFR (Non-Af Amer) POC Glucose (mg/dL) Random Glucose Calcium Total Bilirubin AST ALT Alkaline Phosphatase Troponin I 71.2000 H* Total Protein Albumin Globulin Albumin/Globulin Ratio Lipase Urine Color Urine Clarity Urine pH Ur Specific [place] Urine Protein Urine Glucose (UA) Urine Ketones Urine Blood Urine Nitrate Urine Bilirubin Urine Urobilinogen Ur Leukocyte Esterase Urine RBC (Auto) Urine Microscopic WBC Hyaline Casts Assessment & Plan (1) Non-ST elevation (NSTEMI) myocardial infarction Assessment and Plan: had lenghty discussion with and because of limited activity and age patient and opting for conservative therapy echo shows low normal LVEF Lovenox asa, plavix statins, bb acei conservative medical therapy Status: Acute (2) Abdominal discomfort Status: Acute (3) CVA, old, aphasia Status: Acute Onset Date: 04/25/07 (4) Chronic renal insufficiency Status: Acute (5) Hemiplegia affecting dominant side, post-stroke Status: Acute (6) History of permanent cardiac pacemaker placement Status: Acute (7) CKD (chronic kidney disease) stage 3, GFR 30-59 ml/min Status: Chronic Priority: Medium
--- NOTE | 2018-07-08 11:01 | CT ---
Date of service: 07/07/2018 PROCEDURE: CT HEAD WITHOUT CONTRAST. HISTORY: r/o ICH COMPARISON: 11/29/2017 TECHNIQUE: Axial computed tomography images were obtained through the head/brain without intravenous contrast. Radiation dose: Total exam DLP = 1229.71 mGy-cm. This CT exam was performed using one or more of the following dose reduction techniques: Automated exposure control, adjustment of the mA and/or kV according to patient size, and/or use of iterative reconstruction technique. FINDINGS: HEMORRHAGE: No intracranial hemorrhage. BRAIN: Redemonstration of large cystic encephalomalacia in the left frontal and parietal lobes. There are mild chronic microangiopathic changes. No mass, mass effect or abnormal extra-axial fluid collection. There are coarse atherosclerotic calcifications in the cavernous carotid arteries. VENTRICLES: There is mild age-related global parenchymal volume loss and proportionate enlargement of the ventricles and cortical sulci. CALVARIUM: Unremarkable. PARANASAL SINUSES: Predominantly clear. MASTOID AIR CELLS: Predominantly clear. OTHER FINDINGS: None. IMPRESSION: No acute intracranial abnormality. Redemonstration of large chronic left MCA territory infarction. No other significant interval change. A preliminary report was provided by [employer] [facility].
--- NOTE | 2018-07-08 11:07 | CT ---
Date of service: 07/07/2018 PROCEDURE: CT MAXILLOFACIAL BONES WITHOUT CONTRAST HISTORY: L facial pain headache COMPARISON: None available. TECHNIQUE: Contiguous axial CT images of the maxillofacial bones were obtained. Coronal and sagittal reformats were generated. Radiation dose: Total exam DLP = 778.72 mGy-cm. This CT exam was performed using one or more of the following dose reduction techniques: Automated exposure control, adjustment of the mA and/or kV according to patient size, and/or use of iterative reconstruction technique. FINDINGS: NASAL BONES: Normal. ORBITS: Normal in appearance. PARANASAL SINUSES/ MASTOIDS: Mild mucosal thickening in the maxillary sinuses. The remaining included paranasal sinuses are clear. The nasal septum is deviated to the left with a mid septal bony spur. MAXILLA: No acute fracture or bone erosion. MANDIBLE/ TEMPOROMANDIBULAR JOINTS: Unremarkable. SKULL BASE: Unremarkable. TEMPORAL BONES: Middle ears and mastoid grossly unremarkable. OTHER FINDINGS: None. IMPRESSION: Mild chronic maxillary sinusitis. No evidence for cellulitis or fluid collection. No acute fracture. A preliminary report was provided by [employer] [facility].
--- NOTE | 2018-07-08 12:00 | CARD ---
APPROVED REPORT Date of service: 07/08/2018 EKG Measurement Heart [id number] <Conclusion> Sinus rhythm with complete heart block and Ventricular-paced rhythm Abnormal ECG
--- NOTE | 2018-07-08 12:27 | CT ---
Date of service: 07/07/2018 PROCEDURE: CT Abdomen and Pelvis without intravenous contrast HISTORY: Abdominal pain COMPARISON: 11/29/2017. CT abdomen and pelvis TECHNIQUE: Unenhanced study. Neither oral nor intravenous contrast administered. Radiation dose: Total exam DLP = 963.76 mGy-cm. This CT exam was performed using one or more of the following dose reduction techniques: Automated exposure control, adjustment of the mA and/or kV according to patient size, and/or use of iterative reconstruction technique. FINDINGS: LOWER THORAX: Unremarkable. LIVER: Unremarkable. No gross lesion or ductal dilatation. GALLBLADDER AND BILE DUCTS: Unremarkable. PANCREAS: Unremarkable. No gross lesion or ductal dilatation. SPLEEN: Unremarkable. ADRENALS: Unremarkable. No mass. KIDNEYS AND URETERS: Unremarkable. No hydronephrosis. No solid mass. VASCULATURE: Unremarkable. No aortic aneurysm. BOWEL: Constipation/fecal impaction without mechanical obstruction. Diverticulosis without an acute inflammatory component or other associated pathologic process. APPENDIX: Unremarkable. Normal appendix. PERITONEUM: Unremarkable. No free fluid. No free air. LYMPH NODES: Unremarkable. No enlarged lymph nodes. BLADDER: Unremarkable. REPRODUCTIVE: Unremarkable. BONES: No acute fracture. OTHER FINDINGS: None. IMPRESSION: No acute findings related to/accounting for the clinical presentation. unchanged compared to the prior study. Concordant results (preliminary interpretation) provided by [employer]. Procedure Completed: 20:50. Preliminary ([facility]) Report: Dictated and Authenticated: 21:35. Final Interpretation: 12:25. July 08, 2018.
[2018-07-08] MEDS ORDERED: POLYETHYLENE GLYCOL 3350 17 GM/Dose PACKET PO PRN (12:28)
--- NOTE | 2018-07-08 15:55 | CARD ---
APPROVED REPORT Date of service: 07/08/2018 EKG Measurement Heart [id number] <Conclusion> Sinus rhythm with complete heart block and Ventricular-paced rhythm Abnormal ECG
--- NOTE | 2018-07-08 16:12 | CARD ---
APPROVED REPORT Date of service: 07/08/2018 EXAM: Two-dimensional and M-mode echocardiogram with Doppler and color Doppler. Other Information Quality : FairRhythm : Pacemaker Technically limited study due to body habitus.Poor Echo Window. INDICATION Non STEMI Surgery/Intervention Pacemaker: 2D DIMENSIONS IVSd1.40 (0.7-1.1cm)LVDd4.01 (3.9-5.9cm) LVOT Diameter2.58 (1.8-2.4cm)IVSs1.86 (0.8-1.2cm) LVDs2.00 (2.5-4.0cm)FS (%) 50.1 % PWs1.99 (0.8-1.2cm) M-Mode DIMENSIONS Left Atrium (MM)5.94 (2.5-4.0cm)Aortic Root3.36 (2.2-3.7cm) LVDd4.29 (4.0-5.6cm)IVSs2.14 cm FS (%) 24 %LVDs3.28 (2.0-3.8cm) PWs1.66 cm Aortic Valve AoV Peak Tczihtup320.0cm/sAoV VTI33.9cmAO Peak GR.13mmHg LVOT Peak Eoslfsib25.0cm/sLVOT VTI11.04cmAO Mean GR.7mmHg Mitral Valve MV E Sckjfczz296.0cm/sMV DECEL [id number] A Eijmvqfm997.1cm/s MV LKD43yvE/A ratio1.0MVA (PHT)3.52cm2 TDI E/Lateral E'0.0E/Medial E'0.0 Tricuspid Valve TR Peak Brwkplfv109wv/sRAP UCUMMZQE15alJnCB Peak Gr.23mmHg [id number] LEFT VENTRICLE The left ventricle is normal size. There is normal left ventricular wall thickness. The left ventricular ejection fraction is within the normal range. No regional wall motion abnormalities noted.. The left ventricular diastolic function is normal. No left ventricle thrombus noted on this study. There is no ventricular septal defect visualized. There is no mass noted in the left ventricle. RIGHT VENTRICLE The right ventricle is normal size. There is normal right ventricular wall thickness. The right ventricular systolic function is normal. ATRIA The left atrium size is normal. The right atrium size is normal. The interatrial septum is intact with no evidence for an atrial septal defect. AORTIC VALVE The aortic valve is not visualized No aortic regurgitation is present. There is no aortic valvular stenosis. MITRAL VALVE The mitral valve is normal in structure. There is no mitral valve stenosis. There is moderate mitral valve regurgitation noted. TRICUSPID VALVE The tricuspid valve is normal in structure. There is mild tricuspid valve regurgitation noted. PASP within normal limits PULMONIC VALVE The pulmonary valve is normal in structure. There is no pulmonic valvular regurgitation. GREAT VESSELS The aortic root is normal in size. The ascending aorta is normal in size. The pulmonary artery is normal. The IVC is normal in size and collapses >50% with inspiration. PERICARDIAL EFFUSION There is no pericardial effusion. <Conclusion> Technically difficult study No parasternal short axis or subcostal views Moderate mitral insufficiency Mild TR with normal PASP Grossly unremarkable LV systolic function Unable to estimate EF Reported pacemaker present, but leads not seen: clinical correlation advised
[2018-07-09 05:46] LABS: HEMOGLOBIN 11.7 g/dL (12.0-18.0); MEAN CELL VOLUME 96.9 fl (80.0-94.0); MEAN CORPUSCULAR HEMOGLOBIN 33.1 pg (27.0-31.0); MEAN CORPUSCULAR HGB CONC 34.2 g/dL (33.0-37.0); RBC 3.54 Mil/uL (4.40-5.90); RED CELL DISTRIBUTION WIDTH 14.6 % (11.5-14.5); WHITE BLOOD COUNT 5.2 K/uL (4.8-10.8)
[2018-07-09] MEDS: Levothyroxine 50 MCG TAB PO SCH (06:04)
[2018-07-09 06:14] LABS: INR 1.1; PROTHROMBIN TIME 12.1 Seconds (9.8-13.1)
[2018-07-09 06:17] LABS: PARTIAL THROMBOPLASTIN TIME 51.6 Seconds (25.6-37.1)
[2018-07-09] MEDS ORDERED: Heparin 25,000units in D5W 25,000 UNITS/250 ML BAG IV SCH (06:30)
[2018-07-09] MEDS: Insulin Lispro (humaLOG) 100 Units/ml Inj SC SCH ×4 (06:31→22:01)
[2018-07-09 06:55] LABS: CALCIUM 8.8 mg/dL (8.4-10.2)
[2018-07-09] MEDS: Lacosamide 50 MG Tab PO SCH ×2 (08:43→17:39)
[2018-07-09] MEDS: Pantoprazole 40 mg EC Tab PO SCH (09:39)
--- NOTE | 2018-07-09 10:05 | CP.CCUPN ---
<Sultan Lesa - Last Filed: 07/09/18 10:47> CCU Subjective - Physician Review Subjective (Free Text): 07/09/18 09:56 Patient seen and examined during rounds this morning. No acute overnight events. Pt was on heparin drip overnight and this morning. Per cardiology recommendation, conservative medical therapy, no cardiac intervention. Will changed heparin drip to lovenox today. This AM, pt denies any chest pain, dyspnea or calf. Had BM last night and voiding. Tolerating po diet. No acute complaints. CCU Objective - Vital Signs / Intake & Output Vital Signs (Last 4 hours): Vital Signs Temp Pulse Resp BP Pulse Ox 07/09/18 08:00 97.7 F 60 16 141/58 L 95 07/09/18 06:00 60 11 L 118/60 99 Intake and Output (Last 8hrs): Intake & Output 07/08/18 07/09/18 07/09/18 22:59 06:59 14:59 Intake Total 575 106 300 Output Total 150 250 Balance 425 -144 300 Intake: IV 21 56 0 Intake, Piggyback 14 Oral 540 50 300 Output: Urine 150 250 Urine, Voided 150 250 Other: # Voids Urine, Voided 1 2 1 - Physical Exam Head: Positive for: Atraumatic, Normocephalic Pupils: Positive for: PERRL Extroacular Muscles: Positive for: EOMI Conjunctiva: Positive for: Normal Mouth: Positive for: Moist Mucous Membranes Cardiovascular: Positive for: Regular Rate and Rhythm, Normal S1, S2 Abdomen: Positive for: Normal Bowel Sounds. Negative for: Tenderness, Distention Upper Extremity: Positive for: NORMAL PULSES. Negative for: Edema Lower Extremity: Positive for: Normal Inspection, NORMAL PULSES. Negative for: CALF TENDERNESS Neurological: Positive for: Other (alert, expressive aphasia, right sided hemiplegia) Psychiatric: Positive for: Alert, Oriented x 3 - Medications Active Medications: Active Medications Generic Name Dose Route Start Last Admin Trade Name Freq PRN Reason Stop Dose Admin Acetaminophen 650 mg 07/07/18 21:54 Tylenol 325mg Tab PO Q6 PRN Fever >100.4 F Acetaminophen 650 mg 07/08/18 13:02 07/08/18 19:59 Tylenol 325mg Tab PO 650 mg Q6 PRN Administration Pain, moderate (4-7) Allopurinol 100 mg 07/08/18 09:00 07/09/18 08:41 Zyloprim PO 100 mg DAILY [facility] Administration Aspirin 81 mg 07/08/18 09:00 07/09/18 08:40 Ecotrin PO 81 mg DAILY [facility] Administration Atorvastatin Calcium 40 mg 07/08/18 10:15 07/09/18 08:41 Lipitor PO 40 mg DAILY [facility] Administration Carvedilol 3.125 mg 07/09/18 09:30 Coreg PO Q12 [facility] Clopidogrel Bisulfate 75 mg 07/08/18 09:00 07/09/18 08:36 Plavix PO 75 mg DAILY [facility] Administration Enalapril Maleate 5 mg 07/08/18 09:00 07/09/18 08:37 Vasotec PO 5 mg BID [facility] Administration Enoxaparin Sodium 100 mg 07/09/18 10:00 Lovenox SC DAILY [facility] Protocol Glyburide 5 mg 07/08/18 09:00 07/09/18 08:46 Micronase PO 5 mg DAILY [facility] Administration Insulin Human Lispro 0 units 07/08/18 07:30 07/09/18 06:31 Humalog SC Not Given ACHS [facility] Protocol Lacosamide 50 mg 07/08/18 09:00 07/09/18 08:43 Vimpat PO 50 mg BID [facility] Administration Levothyroxine Sodium 50 mcg 07/08/18 06:30 07/09/18 06:04 Synthroid PO 50 mcg DAILY@0630 [facility] Administration Nystatin 1 applic 07/08/18 13:00 07/09/18 08:46 Mycostatin Cream TOP 1 applic TID [facility] Administration Pantoprazole Sodium 40 mg 07/09/18 09:00 07/09/18 09:39 Protonix Ec Tab PO 40 mg DAILY [facility] Administration Polyethylene Glycol 17 gm 07/08/18 12:28 07/08/18 16:57 Miralax PO 17 gm BID PRN Administration Constipation Trazodone HCl 50 mg 07/07/18 22:00 07/08/18 21:11 Desyrel PO 50 mg HS [facility] Administration - Patient Studies Lab Studies: Lab Studies 07/09/18 07/09/18 07/09/18 Range/Units 05:29 04:45 04:45 WBC (4.8-10.8) K/uL RBC (4.40-5.90) Mil/uL Hgb (12.0-18.0) g/dL Hct (35.0-51.0) % MCV (80.0-94.0) fl MCH (27.0-31.0) pg MCHC (33.0-37.0) g/dL RDW (11.5-14.5) % Plt Count (130-400) K/uL PT 12.1 (9.8-13.1) Seconds INR 1.1 APTT 51.6 H (25.6-37.1) Seconds Sodium 140 (132-148) mmol/l Potassium 4.5 (3.6-5.0) MMOL/L Chloride 104 (98-107) mmol/L Carbon Dioxide 27 (22-30) mmol/L Anion Gap 14 (10-20) BUN 36 H (9-20) mg/dl Creatinine 2.5 H (0.8-1.5) mg/dl Est GFR ( Amer) 30 Est GFR (Non-Af Amer) 24 POC Glucose (mg/dL) 105 (65-110) mg/dL Random Glucose 109 (75-110) mg/dL Calcium 8.8 (8.4-10.2) mg/dL Troponin I (0.00-0.120) ng/mL 07/09/18 07/08/18 07/08/18 Range/Units 04:45 21:01 20:50 WBC 5.2 (4.8-10.8) K/uL RBC 3.54 L (4.40-5.90) Mil/uL Hgb 11.7 L (12.0-18.0) g/dL Hct 34.3 L (35.0-51.0) % MCV 96.9 H (80.0-94.0) fl MCH 33.1 H (27.0-31.0) pg MCHC 34.2 (33.0-37.0) g/dL RDW 14.6 H (11.5-14.5) % Plt Count 179 (130-400) K/uL PT (9.8-13.1) Seconds INR APTT 50.9 H (25.6-37.1) Seconds Sodium (132-148) mmol/l Potassium (3.6-5.0) MMOL/L Chloride (98-107) mmol/L Carbon Dioxide (22-30) mmol/L Anion Gap (10-20) BUN (9-20) mg/dl Creatinine (0.8-1.5) mg/dl Est GFR ( Amer) Est GFR (Non-Af Amer) POC Glucose (mg/dL) 128 H (65-110) mg/dL Random Glucose (75-110) mg/dL Calcium (8.4-10.2) mg/dL Troponin I (0.00-0.120) ng/mL 07/08/18 07/08/18 07/08/18 Range/Units 16:56 15:56 11:17 WBC (4.8-10.8) K/uL RBC (4.40-5.90) Mil/uL Hgb (12.0-18.0) g/dL Hct (35.0-51.0) % MCV (80.0-94.0) fl MCH (27.0-31.0) pg MCHC (33.0-37.0) g/dL RDW (11.5-14.5) % Plt Count (130-400) K/uL PT (9.8-13.1) Seconds INR APTT 55.5 H (25.6-37.1) Seconds Sodium (132-148) mmol/l Potassium (3.6-5.0) MMOL/L Chloride (98-107) mmol/L Carbon Dioxide (22-30) mmol/L Anion Gap (10-20) BUN (9-20) mg/dl Creatinine (0.8-1.5) mg/dl Est GFR ( Amer) Est GFR (Non-Af Amer) POC Glucose (mg/dL) 185 H 191 H (65-110) mg/dL Random Glucose (75-110) mg/dL Calcium (8.4-10.2) mg/dL Troponin I (0.00-0.120) ng/mL 07/08/18 07/08/18 Range/Units 09:51 07:15 WBC (4.8-10.8) K/uL RBC (4.40-5.90) Mil/uL Hgb (12.0-18.0) g/dL Hct (35.0-51.0) % MCV (80.0-94.0) fl MCH (27.0-31.0) pg MCHC (33.0-37.0) g/dL RDW (11.5-14.5) % Plt Count (130-400) K/uL PT (9.8-13.1) Seconds INR APTT 118.4 H (25.6-37.1) Seconds Sodium (132-148) mmol/l Potassium (3.6-5.0) MMOL/L Chloride (98-107) mmol/L Carbon Dioxide (22-30) mmol/L Anion Gap (10-20) BUN (9-20) mg/dl Creatinine (0.8-1.5) mg/dl Est GFR ( Amer) Est GFR (Non-Af Amer) POC Glucose (mg/dL) (65-110) mg/dL Random Glucose (75-110) mg/dL Calcium (8.4-10.2) mg/dL Troponin I 71.2000 H* (0.00-0.120) ng/mL Laboratory Results - last 24 hr 07/08/18 07/08/18 07/08/18 07:15 09:51 11:17 WBC RBC Hgb Hct MCV MCH MCHC RDW Plt Count PT INR APTT 118.4 H Sodium Potassium Chloride Carbon Dioxide Anion Gap BUN Creatinine Est GFR ( Amer) Est GFR (Non-Af Amer) POC Glucose (mg/dL) 191 H Random Glucose Calcium Troponin I 71.2000 H* 07/08/18 07/08/18 07/08/18 15:56 16:56 20:50 WBC RBC Hgb Hct MCV MCH MCHC RDW Plt Count PT INR APTT 55.5 H 50.9 H Sodium Potassium Chloride Carbon Dioxide Anion Gap BUN Creatinine Est GFR ( Amer) Est GFR (Non-Af Amer) POC Glucose (mg/dL) 185 H Random Glucose Calcium Troponin I 07/08/18 07/09/18 07/09/18 21:01 04:45 04:45 WBC 5.2 RBC 3.54 L Hgb 11.7 L Hct 34.3 L MCV 96.9 H MCH 33.1 H MCHC 34.2 RDW 14.6 H Plt Count 179 PT INR APTT Sodium 140 Potassium 4.5 Chloride 104 Carbon Dioxide 27 Anion Gap 14 BUN 36 H Creatinine 2.5 H Est GFR ( Amer) 30 Est GFR (Non-Af Amer) 24 POC Glucose (mg/dL) 128 H Random Glucose 109 Calcium 8.8 Troponin I 07/09/18 07/09/18 04:45 05:29 WBC RBC Hgb Hct MCV MCH MCHC RDW Plt Count PT 12.1 INR 1.1 APTT 51.6 H Sodium Potassium Chloride Carbon Dioxide Anion Gap BUN Creatinine Est GFR ( Amer) Est GFR (Non-Af Amer) POC Glucose (mg/dL) 105 Random Glucose Calcium Troponin I EKG/Cardiology Studies: Cardiology / EKG Studies 07/09/18 EKG [ELECTROCARDIOGRAM] Routine Comment: Mode Of Transportation: Reason For Exam: NSTEMI Fingerstick Blood Sugar Results: 105 Review of Systems - Review of Systems Review of Systems: Unable to review all ROS due to patient's expressive aphasia Critical Care Progress Note - Nutrition Nutrition: Nutrition Category Date Time Status Heart Healthy Diet [DIET] Diets 07/09/18 Breakfast Active Assessment/Plan - Assessment and Plan (Free Text) Assessment: Assessment: 87 yo male w/ pmhx of CVA w/ right hemiplegia, expressive aphasia, CAD, CKD , pacemaker placement admitted to ICU on 07/07/18 for NSTEMI. Pt was on heparin drip with therapeutic PTT level. Will change to lovenox today. NSTEMI -Forensic Scientist Dr. Gooden on board -Stop heparin drip -Start lovenox 100 mcg sc [id number] -Troponin levels: 7.95, 94.3 and 71.2. f/u troponin this am. -Ekgs: ventricular paced rhythm, f/u repeat EKG today. -c/w aspirin 81 mg po daily -c/w plavix 75 mg po daily -c/w atorvastatin 40 mg po daily -c/w Coreg 6.25 mg po q12 -Pt is stable to be transfer to telemetry DMII: -Continue w/ current management -Glyburide 5 mg po daily -insulin humalog ACHS Chronic renal failure: Stage 4, GFR 24 BUN/Cr: 36/2.5 DVT prophylaxis: on lovenox for NSTEMI GI prophylaxis: Pantoprazole 40 mg po qd <Syed Willams - Last Filed: 07/09/18 14:13> CCU Objective - Vital Signs / Intake & Output Vital Signs (Last 4 hours): Vital Signs Temp Pulse Resp BP Pulse Ox 07/09/18 12:00 97.8 F 60 27 H 105/58 L 100 07/09/18 10:49 60 131/64 Intake and Output (Last 8hrs): Intake & Output 07/08/18 07/09/18 07/09/18 22:59 06:59 14:59 Intake Total 575 106 400 Output Total 150 250 150 Balance 425 -144 250 Intake: IV 21 56 0 Intake, Piggyback 14 Oral 540 50 400 Output: Urine 150 250 150 Urine, Voided 150 250 150 Other: # Voids Urine, Voided 1 2 1 - Medications Active Medications: Active Medications Generic Name Dose Route Start Last Admin Trade Name Freq PRN Reason Stop Dose Admin Acetaminophen 650 mg 07/07/18 21:54 Tylenol 325mg Tab PO Q6 PRN Fever >100.4 F Acetaminophen 650 mg 07/08/18 13:02 07/08/18 19:59 Tylenol 325mg Tab PO 650 mg Q6 PRN Administration Pain, moderate (4-7) Allopurinol 100 mg 07/08/18 09:00 07/09/18 08:41 Zyloprim PO 100 mg DAILY [facility] Administration Aspirin 81 mg 07/08/18 09:00 07/09/18 08:40 Ecotrin PO 81 mg DAILY [facility] Administration Atorvastatin Calcium 40 mg 07/08/18 10:15 07/09/18 08:41 Lipitor PO 40 mg DAILY [facility] Administration Carvedilol 6.25 mg 07/09/18 22:00 Coreg PO Q12 [facility] Clopidogrel Bisulfate 75 mg 07/08/18 09:00 07/09/18 08:36 Plavix PO 75 mg DAILY [facility] Administration Enalapril Maleate 5 mg 07/08/18 09:00 07/09/18 08:37 Vasotec PO 5 mg BID [facility] Administration Enoxaparin Sodium 100 mg 07/09/18 10:00 07/09/18 10:20 Lovenox SC 100 mg DAILY [facility] Administration Protocol Glyburide 5 mg 07/08/18 09:00 07/09/18 08:46 Micronase PO 5 mg DAILY [facility] Administration Insulin Human Lispro 0 units 07/08/18 07:30 07/09/18 12:13 Humalog SC 2 unit ACHS [facility] Administration Protocol Lacosamide 50 mg 07/08/18 09:00 07/09/18 08:43 Vimpat PO 50 mg BID [facility] Administration Levothyroxine Sodium 50 mcg 07/08/18 06:30 07/09/18 06:04 Synthroid PO 50 mcg DAILY@0630 [facility] Administration Nystatin 1 applic 07/08/18 13:00 07/09/18 12:14 Mycostatin Cream TOP 1 applic TID [facility] Administration Pantoprazole Sodium 40 mg 07/09/18 09:00 07/09/18 09:39 Protonix Ec Tab PO 40 mg DAILY [facility] Administration Polyethylene Glycol 17 gm 07/08/18 12:28 07/08/18 16:57 Miralax PO 17 gm BID PRN Administration Constipation Trazodone HCl 50 mg 07/07/18 22:00 07/08/18 21:11 Desyrel PO 50 mg HS [facility] Administration - Patient Studies Lab Studies: Lab Studies 07/09/18 07/09/18 07/09/18 Range/Units 11:24 11:06 05:29 WBC (4.8-10.8) K/uL RBC (4.40-5.90) Mil/uL Hgb (12.0-18.0) g/dL Hct (35.0-51.0) % MCV (80.0-94.0) fl MCH (27.0-31.0) pg MCHC (33.0-37.0) g/dL RDW (11.5-14.5) % Plt Count (130-400) K/uL PT (9.8-13.1) Seconds INR APTT (25.6-37.1) Seconds Sodium (132-148) mmol/l Potassium (3.6-5.0) MMOL/L Chloride (98-107) mmol/L Carbon Dioxide (22-30) mmol/L Anion Gap (10-20) BUN (9-20) mg/dl Creatinine (0.8-1.5) mg/dl Est GFR ( Amer) Est GFR (Non-Af Amer) POC Glucose (mg/dL) 160 H 105 (65-110) mg/dL Random Glucose (75-110) mg/dL Calcium (8.4-10.2) mg/dL Troponin I 21.9000 H* (0.00-0.120) ng/mL 08/15/18 08/15/18 08/15/18 Range/Units 04:45 04:45 04:45 WBC 5.2 (4.8-10.8) K/uL RBC 3.54 L (4.40-5.90) Mil/uL Hgb 11.7 L (12.0-18.0) g/dL Hct 34.3 L (35.0-51.0) % MCV 96.9 H (80.0-94.0) fl MCH 33.1 H (27.0-31.0) pg MCHC 34.2 (33.0-37.0) g/dL RDW 14.6 H (11.5-14.5) % Plt Count 179 (130-400) K/uL PT 12.1 (9.8-13.1) Seconds INR 1.1 APTT 51.6 H (25.6-37.1) Seconds Sodium 140 (132-148) mmol/l Potassium 4.5 (3.6-5.0) MMOL/L Chloride 104 (98-107) mmol/L Carbon Dioxide 27 (22-30) mmol/L Anion Gap 14 (10-20) BUN 36 H (9-20) mg/dl Creatinine 2.5 H (0.8-1.5) mg/dl Est GFR ( Amer) 30 Est GFR (Non-Af Amer) 24 POC Glucose (mg/dL) (65-110) mg/dL Random Glucose 109 (75-110) mg/dL Calcium 8.8 (8.4-10.2) mg/dL Troponin I (0.00-0.120) ng/mL 07/08/18 07/08/18 07/08/18 Range/Units 21:01 20:50 16:56 WBC (4.8-10.8) K/uL RBC (4.40-5.90) Mil/uL Hgb (12.0-18.0) g/dL Hct (35.0-51.0) % MCV (80.0-94.0) fl MCH (27.0-31.0) pg MCHC (33.0-37.0) g/dL RDW (11.5-14.5) % Plt Count (130-400) K/uL PT (9.8-13.1) Seconds INR APTT 50.9 H (25.6-37.1) Seconds Sodium (132-148) mmol/l Potassium (3.6-5.0) MMOL/L Chloride (98-107) mmol/L Carbon Dioxide (22-30) mmol/L Anion Gap (10-20) BUN (9-20) mg/dl Creatinine (0.8-1.5) mg/dl Est GFR ( Amer) Est GFR (Non-Af Amer) POC Glucose (mg/dL) 128 H 185 H (65-110) mg/dL Random Glucose (75-110) mg/dL Calcium (8.4-10.2) mg/dL Troponin I (0.00-0.120) ng/mL 07/08/18 Range/Units 15:56 WBC (4.8-10.8) K/uL RBC (4.40-5.90) Mil/uL Hgb (12.0-18.0) g/dL Hct (35.0-51.0) % MCV (80.0-94.0) fl MCH (27.0-31.0) pg MCHC (33.0-37.0) g/dL RDW (11.5-14.5) % Plt Count (130-400) K/uL PT (9.8-13.1) Seconds INR APTT 55.5 H (25.6-37.1) Seconds Sodium (132-148) mmol/l Potassium (3.6-5.0) MMOL/L Chloride (98-107) mmol/L Carbon Dioxide (22-30) mmol/L Anion Gap (10-20) BUN (9-20) mg/dl Creatinine (0.8-1.5) mg/dl Est GFR ( Amer) Est GFR (Non-Af Amer) POC Glucose (mg/dL) (65-110) mg/dL Random Glucose (75-110) mg/dL Calcium (8.4-10.2) mg/dL Troponin I (0.00-0.120) ng/mL Laboratory Results - last 24 hr 07/08/18 07/08/18 07/08/18 15:56 16:56 20:50 WBC RBC Hgb Hct MCV MCH MCHC RDW Plt Count PT INR APTT 55.5 H 50.9 H Sodium Potassium Chloride Carbon Dioxide Anion Gap BUN Creatinine Est GFR ( Amer) Est GFR (Non-Af Amer) POC Glucose (mg/dL) 185 H Random Glucose Calcium Troponin I 07/08/18 07/09/18 07/09/18 21:01 04:45 04:45 WBC 5.2 RBC 3.54 L Hgb 11.7 L Hct 34.3 L MCV 96.9 H MCH 33.1 H MCHC 34.2 RDW 14.6 H Plt Count 179 PT INR APTT Sodium 140 Potassium 4.5 Chloride 104 Carbon Dioxide 27 Anion Gap 14 BUN 36 H Creatinine 2.5 H Est GFR ( Amer) 30 Est GFR (Non-Af Amer) 24 POC Glucose (mg/dL) 128 H Random Glucose 109 Calcium 8.8 Troponin I 07/09/18 07/09/18 07/09/18 04:45 05:29 11:06 WBC RBC Hgb Hct MCV MCH MCHC RDW Plt Count PT 12.1 INR 1.1 APTT 51.6 H Sodium Potassium Chloride Carbon Dioxide Anion Gap BUN Creatinine Est GFR ( Amer) Est GFR (Non-Af Amer) POC Glucose (mg/dL) 105 Random Glucose Calcium Troponin I 21.9000 H* 07/09/18 11:24 WBC RBC Hgb Hct MCV MCH MCHC RDW Plt Count PT INR APTT Sodium Potassium Chloride Carbon Dioxide Anion Gap BUN Creatinine Est GFR ( Amer) Est GFR (Non-Af Amer) POC Glucose (mg/dL) 160 H Random Glucose Calcium Troponin I EKG/Cardiology Studies: Cardiology / EKG Studies 07/09/18 EKG [ELECTROCARDIOGRAM] Routine Comment: Mode Of Transportation: Reason For Exam: NSTEMI Critical Care Progress Note - Nutrition Nutrition: Nutrition Category Date Time Status Heart Healthy Diet [DIET] Diets 07/09/18 Breakfast Active Attending/Attestation - Attestation I have personally seen and examined this patient.: Yes I have fully participated in the care of the patient.: Yes I have reviewed all pertinent clinical information: Yes Notes (Text): 07/09/18 14:13 Today: Saturday, July 09, 2018 The patient was Seen and examined by me at the bedside during ICU round, Medical records reviewed and Management issues were discussed and formulated with the house staff. Events reviewed I have reviewed all the relevant clinical, laboratory, hemodynamic, radiographic data and medications Pain issues, skin care, head of the bed elevation, glycemic control were addressed. I concur with resident's assessment and plan of care as transcribed in Dr. Mcfadden note.
[2018-07-09] MEDS: Heparin 25,000units in D5W 25,000 UNITS/250 ML BAG IV SCH (10:15)
[2018-07-09] MEDS: Enoxaparin 100 mg Syringe SC SCH (10:20)
--- NOTE | 2018-07-09 11:13 | CP.PCM.PN ---
Subjective - Date & Time of Evaluation Date of Evaluation: 07/09/18 Time of Evaluation: 10:00 - Subjective Subjective: Feels better this morning Pt was seen by DR Gooden who recommended Cardiac Cath to the pt and - they decline at this point They prefer medical management EKG: PMR denies chest pain or SOB feels well to be transferred to telemetry Objective - Vital Signs/Intake and Output Vital Signs (last 24 hours): Temp Pulse Resp BP Pulse Ox 97.7 F 60 11 L 131/64 100 07/09/18 08:00 07/09/18 10:49 07/09/18 10:00 07/09/18 10:49 07/09/18 10:00 Intake and Output: 07/09/18 07/09/18 06:59 18:59 Intake Total 227 350 Output Total 400 Balance -173 350 - Medications Medications: Current Medications Acetaminophen (Tylenol 325mg Tab) 650 mg PO Q6 PRN PRN Reason: Fever >100.4 F Acetaminophen (Tylenol 325mg Tab) 650 mg PO Q6 PRN PRN Reason: Pain, moderate (4-7) Last Admin: 07/08/18 19:59 Dose: 650 mg Allopurinol (Zyloprim) 100 mg PO DAILY [facility] Last Admin: 07/09/18 08:41 Dose: 100 mg Aspirin (Ecotrin) 81 mg PO DAILY [facility] Last Admin: 07/09/18 08:40 Dose: 81 mg Atorvastatin Calcium (Lipitor) 40 mg PO DAILY [facility] Last Admin: 07/09/18 08:41 Dose: 40 mg Carvedilol (Coreg) 6.25 mg PO Q12 [facility] Clopidogrel Bisulfate (Plavix) 75 mg PO DAILY [facility] Last Admin: 07/09/18 08:36 Dose: 75 mg Enalapril Maleate (Vasotec) 5 mg PO BID [facility] Last Admin: 07/09/18 08:37 Dose: 5 mg Enoxaparin Sodium (Lovenox) 100 mg SC DAILY [facility] PRN Reason: Protocol Last Admin: 07/09/18 10:20 Dose: 100 mg Glyburide (Micronase) 5 mg PO DAILY [facility] Last Admin: 07/09/18 08:46 Dose: 5 mg Insulin Human Lispro (Humalog) 0 units SC [facility] PRN Reason: Protocol Last Admin: 07/09/18 06:31 Dose: Not Given Lacosamide (Vimpat) 50 mg PO BID [facility] Last Admin: 07/09/18 08:43 Dose: 50 mg Levothyroxine Sodium (Synthroid) 50 mcg PO DAILY@0630 [facility] Last Admin: 07/09/18 06:04 Dose: 50 mcg Nystatin (Mycostatin Cream) 1 applic TOP TID [facility] Last Admin: 07/09/18 08:46 Dose: 1 applic Pantoprazole Sodium (Protonix Ec Tab) 40 mg PO DAILY [facility] Last Admin: 07/09/18 09:39 Dose: 40 mg Polyethylene Glycol (Miralax) 17 gm PO BID PRN PRN Reason: Constipation Last Admin: 07/08/18 16:57 Dose: 17 gm Trazodone HCl (Desyrel) 50 mg PO HS [facility] Last Admin: 07/08/18 21:11 Dose: 50 mg - Labs Labs: 07/09/18 04:45 07/09/18 04:45 PT 12.1 Seconds (9.8-13.1) 07/09/18 04:45 INR 1.1 07/09/18 04:45 APTT 51.6 Seconds (25.6-37.1) H 07/09/18 04:45 Assessment and Plan (1) Non-ST elevation (NSTEMI) myocardial infarction Assessment & Plan: Pt and prefer medical management Status: Acute (2) Controlled type 2 diabetes mellitus Status: Acute (3) Essential (primary) hypertension Status: Acute (4) Hemiplegia affecting dominant side, post-stroke Status: Acute (5) History of permanent cardiac pacemaker placement Status: Acute (6) CKD (chronic kidney disease) stage 3, GFR 30-59 ml/min Status: Chronic
--- NOTE | 2018-07-09 18:40 | CARD ---
APPROVED REPORT Date of service: 07/09/2018 <Conclusion> Sinus rhythm with complete heart block and Ventricular-paced rhythm Abnormal ECG
[2018-07-10] MEDS: Levothyroxine 50 MCG TAB PO SCH (06:01)
[2018-07-10] MEDS: Insulin Lispro (humaLOG) 100 Units/ml Inj SC SCH ×4 (07:03→22:00)
[2018-07-10] MEDS: Enoxaparin 100 mg Syringe SC SCH (10:08)
[2018-07-10] MEDS: Pantoprazole 40 mg EC Tab PO SCH (10:10)
[2018-07-10] MEDS: Lacosamide 50 MG Tab PO SCH ×2 (10:13→16:42)
--- NOTE | 2018-07-10 10:57 | CP.PCM.PN ---
Subjective - Date & Time of Evaluation Date of Evaluation: 07/10/18 Time of Evaluation: 10:00 - Subjective Subjective: Pt feels well today spoke with still does not want catherization Coreg and Vasotec d/c ed 2* to low BP Objective - Vital Signs/Intake and Output Vital Signs (last 24 hours): Temp Pulse Resp BP Pulse Ox 97.2 F L 60 18 91/55 L 95 07/10/18 08:00 07/10/18 08:00 07/10/18 08:00 07/10/18 08:00 07/10/18 08:00 - Medications Medications: Current Medications Acetaminophen (Tylenol 325mg Tab) 650 mg PO Q6 PRN PRN Reason: Fever >100.4 F Acetaminophen (Tylenol 325mg Tab) 650 mg PO Q6 PRN PRN Reason: Pain, moderate (4-7) Last Admin: 07/10/18 10:47 Dose: 650 mg Allopurinol (Zyloprim) 100 mg PO DAILY [facility] Last Admin: 07/10/18 10:10 Dose: 100 mg Aspirin (Ecotrin) 81 mg PO DAILY [facility] Last Admin: 07/10/18 10:07 Dose: 81 mg Atorvastatin Calcium (Lipitor) 40 mg PO DAILY [facility] Last Admin: 07/09/18 08:41 Dose: 40 mg Clopidogrel Bisulfate (Plavix) 75 mg PO DAILY [facility] Last Admin: 07/10/18 10:10 Dose: 75 mg Enoxaparin Sodium (Lovenox) 100 mg SC DAILY [facility] PRN Reason: Protocol Last Admin: 07/10/18 10:08 Dose: 100 mg Glyburide (Micronase) 5 mg PO DAILY [facility] Last Admin: 07/10/18 10:09 Dose: 5 mg Insulin Human Lispro (Humalog) 0 units SC [facility] PRN Reason: Protocol Last Admin: 07/10/18 07:03 Dose: Not Given Lacosamide (Vimpat) 50 mg PO BID [facility] Last Admin: 07/10/18 10:13 Dose: 50 mg Levothyroxine Sodium (Synthroid) 50 mcg PO DAILY@0630 [facility] Last Admin: 07/10/18 06:01 Dose: 50 mcg Nystatin (Mycostatin Cream) 1 applic TOP TID [facility] Last Admin: 07/10/18 10:09 Dose: 1 applic Pantoprazole Sodium (Protonix Ec Tab) 40 mg PO DAILY [facility] Last Admin: 07/10/18 10:10 Dose: 40 mg Polyethylene Glycol (Miralax) 17 gm PO BID PRN PRN Reason: Constipation Last Admin: 07/08/18 16:57 Dose: 17 gm Trazodone HCl (Desyrel) 50 mg PO HS [facility] Last Admin: 07/09/18 22:01 Dose: 50 mg - Labs Labs: 07/09/18 04:45 07/09/18 04:45 PT 12.1 Seconds (9.8-13.1) 07/09/18 04:45 INR 1.1 07/09/18 04:45 APTT 51.6 Seconds (25.6-37.1) H 07/09/18 04:45 Assessment and Plan (1) Non-ST elevation (NSTEMI) myocardial infarction Status: Acute (2) Controlled type 2 diabetes mellitus Status: Acute (3) Essential (primary) hypertension Status: Acute (4) Hemiplegia affecting dominant side, post-stroke Status: Acute (5) History of permanent cardiac pacemaker placement Status: Acute (6) CKD (chronic kidney disease) stage 3, GFR 30-59 ml/min Status: Chronic
--- NOTE | 2018-07-10 21:11 | CP.PCM.PN ---
Subjective - Date & Time of Evaluation Date of Evaluation: 07/10/18 Time of Evaluation: 21:09 - Subjective Subjective: requested to re-evaluate patient for persistent headaches x 5 days TnI trending down c/o 06/03 persistent headache - etiology unclear wanted to know about possibility of catheterization and I recommended to pursue medical management Objective - Vital Signs/Intake and Output Vital Signs (last 24 hours): Temp Pulse Resp BP Pulse Ox 96.5 F L 61 18 91/52 L 94 L 07/10/18 20:08 07/10/18 20:08 07/10/18 20:08 07/10/18 20:08 07/10/18 20:08 Intake and Output: 07/10/18 07/11/18 18:59 06:59 Intake Total 360 Balance 360 - Medications Medications: Current Medications Acetaminophen (Tylenol 325mg Tab) 650 mg PO Q6 PRN PRN Reason: Fever >100.4 F Acetaminophen (Tylenol 325mg Tab) 650 mg PO Q6 PRN PRN Reason: Pain, moderate (4-7) Last Admin: 07/10/18 10:47 Dose: 650 mg Allopurinol (Zyloprim) 100 mg PO DAILY [facility] Last Admin: 07/10/18 10:10 Dose: 100 mg Aspirin (Ecotrin) 81 mg PO DAILY [facility] Last Admin: 07/10/18 10:07 Dose: 81 mg Atorvastatin Calcium (Lipitor) 40 mg PO DAILY [facility] Last Admin: 07/10/18 12:53 Dose: 40 mg Clopidogrel Bisulfate (Plavix) 75 mg PO DAILY [facility] Last Admin: 07/10/18 10:10 Dose: 75 mg Enoxaparin Sodium (Lovenox) 100 mg SC DAILY [facility] PRN Reason: Protocol Last Admin: 07/10/18 10:08 Dose: 100 mg Glyburide (Micronase) 5 mg PO DAILY [facility] Last Admin: 07/10/18 10:09 Dose: 5 mg Ibuprofen (Motrin Tab) 400 mg PO Q6 PRN PRN Reason: Headache Last Admin: 07/10/18 16:43 Dose: 400 mg Insulin Human Lispro (Humalog) 0 units SC [facility] PRN Reason: Protocol Last Admin: 07/10/18 16:47 Dose: Not Given Lacosamide (Vimpat) 50 mg PO BID [facility] Last Admin: 07/10/18 16:42 Dose: 50 mg Levothyroxine Sodium (Synthroid) 50 mcg PO DAILY@0630 [facility] Last Admin: 07/10/18 06:01 Dose: 50 mcg Nystatin (Mycostatin Cream) 1 applic TOP TID [facility] Last Admin: 07/10/18 16:16 Dose: 1 applic Pantoprazole Sodium (Protonix Ec Tab) 40 mg PO DAILY [facility] Last Admin: 07/10/18 10:10 Dose: 40 mg Polyethylene Glycol (Miralax) 17 gm PO BID PRN PRN Reason: Constipation Last Admin: 07/08/18 16:57 Dose: 17 gm Trazodone HCl (Desyrel) 50 mg PO HS [facility] Last Admin: 07/10/18 21:06 Dose: 50 mg - Labs Labs: 07/09/18 04:45 07/09/18 04:45 PT 12.1 Seconds (9.8-13.1) 07/09/18 04:45 INR 1.1 07/09/18 04:45 APTT 51.6 Seconds (25.6-37.1) H 07/09/18 04:45 - Constitutional Appears: Well - Head Exam Head Exam: ATRAUMATIC, NORMAL INSPECTION, NORMOCEPHALIC - Eye Exam Eye Exam: EOMI, Normal appearance, PERRL Pupil Exam: NORMAL ACCOMODATION, PERRL - ENT Exam ENT Exam: Mucous Membranes Moist, Normal Exam - Neck Exam Neck Exam: Full ROM, Normal Inspection. absent: Lymphadenopathy - Respiratory Exam Respiratory Exam: Clear to Ausculation Bilateral, NORMAL BREATHING PATTERN - Cardiovascular Exam Cardiovascular Exam: REGULAR RHYTHM, +S1, +S2, Murmur - GI/Abdominal Exam GI & Abdominal Exam: Soft, Normal Bowel Sounds. absent: Tenderness - Extremities Exam Extremities Exam: Full ROM, Normal Capillary Refill, Normal Inspection. absent : Joint Swelling, Pedal Edema - Back Exam Back Exam: NORMAL INSPECTION - Neurological Exam Neurological Exam: Alert, Awake, Motor Sensory Deficit, Oriented x3 - Psychiatric Exam Psychiatric exam: Normal Affect, Normal Mood - Skin Skin Exam: Dry, Intact, Normal Color, Warm Assessment and Plan (1) Headache Assessment & Plan: etiology unclear consider CT head Status: Acute (2) Non-ST elevation (NSTEMI) myocardial infarction Assessment & Plan: cont med rx asa , plavix bb statins therapeutic AC Status: Acute (3) Abdominal discomfort Status: Acute (4) CVA, old, aphasia Status: Acute (5) Chronic renal insufficiency Status: Acute (6) Hemiplegia affecting dominant side, post-stroke Status: Acute (7) History of permanent cardiac pacemaker placement Status: Acute (8) CKD (chronic kidney disease) stage 3, GFR 30-59 ml/min Status: Chronic
[2018-07-11] MEDS: Levothyroxine 50 MCG TAB PO SCH (05:39)
[2018-07-11] MEDS: Insulin Lispro (humaLOG) 100 Units/ml Inj SC SCH ×4 (06:43→21:52)
[2018-07-11] MEDS: Enoxaparin 100 mg Syringe SC SCH (09:36)
[2018-07-11] MEDS: Pantoprazole 40 mg EC Tab PO SCH (09:37)
[2018-07-11] MEDS: Lacosamide 50 MG Tab PO SCH ×2 (09:40→17:58)
--- NOTE | 2018-07-11 10:20 | CP.PCM.PN ---
Subjective - Date & Time of Evaluation Date of Evaluation: 07/11/18 Time of Evaluation: 10:00 - Subjective Subjective: Dr Gooden note apprec Pt had headache last night relieved with motrin Objective - Vital Signs/Intake and Output Vital Signs (last 24 hours): Temp Pulse Resp BP Pulse Ox 97.7 F 60 20 106/64 97 07/11/18 08:29 07/11/18 08:29 07/11/18 08:29 07/11/18 08:29 07/11/18 08:29 - Medications Medications: Current Medications Acetaminophen (Tylenol 325mg Tab) 650 mg PO Q6 PRN PRN Reason: Fever >100.4 F Acetaminophen (Tylenol 325mg Tab) 650 mg PO Q6 PRN PRN Reason: Pain, moderate (4-7) Last Admin: 07/10/18 10:47 Dose: 650 mg Allopurinol (Zyloprim) 100 mg PO DAILY [facility] Last Admin: 07/11/18 09:38 Dose: 100 mg Aspirin (Ecotrin) 81 mg PO DAILY [facility] Last Admin: 07/11/18 09:37 Dose: 81 mg Atorvastatin Calcium (Lipitor) 40 mg PO DAILY [facility] Last Admin: 07/11/18 09:37 Dose: 40 mg Clopidogrel Bisulfate (Plavix) 75 mg PO DAILY [facility] Last Admin: 07/11/18 09:37 Dose: 75 mg Enoxaparin Sodium (Lovenox) 100 mg SC DAILY [facility] PRN Reason: Protocol Last Admin: 07/11/18 09:36 Dose: 100 mg Glyburide (Micronase) 5 mg PO DAILY [facility] Last Admin: 07/11/18 09:38 Dose: 5 mg Ibuprofen (Motrin Tab) 400 mg PO Q6 PRN PRN Reason: Headache Last Admin: 07/10/18 16:43 Dose: 400 mg Insulin Human Lispro (Humalog) 0 units SC [facility] PRN Reason: Protocol Last Admin: 07/11/18 06:43 Dose: Not Given Lacosamide (Vimpat) 50 mg PO BID [facility] Last Admin: 07/11/18 09:40 Dose: 50 mg Levothyroxine Sodium (Synthroid) 50 mcg PO DAILY@0630 [facility] Last Admin: 07/11/18 05:39 Dose: 50 mcg Nystatin (Mycostatin Cream) 1 applic TOP TID [facility] Last Admin: 07/11/18 09:36 Dose: 1 applic Pantoprazole Sodium (Protonix Ec Tab) 40 mg PO DAILY [facility] Last Admin: 07/11/18 09:37 Dose: 40 mg Polyethylene Glycol (Miralax) 17 gm PO BID PRN PRN Reason: Constipation Last Admin: 07/08/18 16:57 Dose: 17 gm Trazodone HCl (Desyrel) 50 mg PO HS [facility] Last Admin: 07/10/18 21:06 Dose: 50 mg - Labs Labs: 07/09/18 04:45 07/09/18 04:45 PT 12.1 Seconds (9.8-13.1) 07/09/18 04:45 INR 1.1 07/09/18 04:45 APTT 51.6 Seconds (25.6-37.1) H 07/09/18 04:45 Assessment and Plan (1) Non-ST elevation (NSTEMI) myocardial infarction Status: Acute (2) Controlled type 2 diabetes mellitus Status: Acute (3) Essential (primary) hypertension Status: Acute (4) Hemiplegia affecting dominant side, post-stroke Status: Acute (5) History of permanent cardiac pacemaker placement Status: Acute (6) CKD (chronic kidney disease) stage 3, GFR 30-59 ml/min Status: Chronic
[2018-07-12] MEDS: Levothyroxine 50 MCG TAB PO SCH (05:52)
[2018-07-12] MEDS: Insulin Lispro (humaLOG) 100 Units/ml Inj SC SCH ×4 (06:42→21:57)
[2018-07-12] MEDS: Pantoprazole 40 mg EC Tab PO SCH (08:57)
[2018-07-12] MEDS: Lacosamide 50 MG Tab PO SCH ×2 (09:01→17:18)
[2018-07-12] MEDS: Enoxaparin 100 mg Syringe SC SCH (09:03)
--- NOTE | 2018-07-12 10:40 | CP.PCM.PN ---
Subjective - Date & Time of Evaluation Date of Evaluation: 07/12/18 Time of Evaluation: 10:00 - Subjective Subjective: doing well c/o arthritis pains no headache no chest pain/sob Objective - Vital Signs/Intake and Output Vital Signs (last 24 hours): Temp Pulse Resp BP Pulse Ox 97.6 F 58 L 16 124/75 95 07/12/18 08:00 07/12/18 09:00 07/12/18 08:00 07/12/18 08:00 07/12/18 08:00 - Medications Medications: Current Medications Acetaminophen (Tylenol 325mg Tab) 650 mg PO Q6 PRN PRN Reason: Fever >100.4 F Acetaminophen (Tylenol 325mg Tab) 650 mg PO Q6 PRN PRN Reason: Pain, moderate (4-7) Last Admin: 07/10/18 10:47 Dose: 650 mg Allopurinol (Zyloprim) 100 mg PO DAILY [facility] Last Admin: 07/12/18 08:57 Dose: 100 mg Aspirin (Ecotrin) 81 mg PO DAILY [facility] Last Admin: 07/12/18 08:56 Dose: 81 mg Atorvastatin Calcium (Lipitor) 40 mg PO DAILY [facility] Last Admin: 07/12/18 08:56 Dose: 40 mg Clopidogrel Bisulfate (Plavix) 75 mg PO DAILY [facility] Last Admin: 07/12/18 08:57 Dose: 75 mg Enoxaparin Sodium (Lovenox) 100 mg SC DAILY [facility] PRN Reason: Protocol Last Admin: 07/12/18 09:03 Dose: 100 mg Glyburide (Micronase) 5 mg PO DAILY [facility] Last Admin: 07/12/18 08:57 Dose: 5 mg Ibuprofen (Motrin Tab) 400 mg PO Q6 PRN PRN Reason: Headache Last Admin: 07/11/18 21:54 Dose: 400 mg Insulin Human Lispro (Humalog) 0 units SC [facility] PRN Reason: Protocol Last Admin: 07/12/18 06:42 Dose: Not Given Lacosamide (Vimpat) 50 mg PO BID [facility] Last Admin: 07/12/18 09:01 Dose: 50 mg Levothyroxine Sodium (Synthroid) 50 mcg PO DAILY@0630 [facility] Last Admin: 07/12/18 05:52 Dose: 50 mcg Nystatin (Mycostatin Cream) 1 applic TOP TID [facility] Last Admin: 07/12/18 08:57 Dose: 1 applic Pantoprazole Sodium (Protonix Ec Tab) 40 mg PO DAILY [facility] Last Admin: 07/12/18 08:57 Dose: 40 mg Polyethylene Glycol (Miralax) 17 gm PO BID PRN PRN Reason: Constipation Last Admin: 07/08/18 16:57 Dose: 17 gm Trazodone HCl (Desyrel) 50 mg PO HS [facility] Last Admin: 07/11/18 21:53 Dose: 50 mg - Labs Labs: 07/09/18 04:45 07/09/18 04:45 PT 12.1 Seconds (9.8-13.1) 07/09/18 04:45 INR 1.1 07/09/18 04:45 APTT 51.6 Seconds (25.6-37.1) H 07/09/18 04:45 Assessment and Plan (1) Non-ST elevation (NSTEMI) myocardial infarction Status: Acute (2) Controlled type 2 diabetes mellitus Status: Acute (3) Essential (primary) hypertension Status: Acute (4) Hemiplegia affecting dominant side, post-stroke Status: Acute (5) History of permanent cardiac pacemaker placement Status: Acute (6) CKD (chronic kidney disease) stage 3, GFR 30-59 ml/min Status: Chronic
[2018-07-13] MEDS: Insulin Lispro (humaLOG) 100 Units/ml Inj SC SCH ×4 (06:50→22:00)
[2018-07-13] MEDS: Levothyroxine 50 MCG TAB PO SCH (06:53)
[2018-07-13] MEDS: Enoxaparin 100 mg Syringe SC SCH (09:16)
[2018-07-13] MEDS: Pantoprazole 40 mg EC Tab PO SCH (09:17)
[2018-07-13] MEDS: Lacosamide 50 MG Tab PO SCH ×2 (09:50→18:56)
--- NOTE | 2018-07-13 10:21 | CP.PCM.PN ---
Subjective - Date & Time of Evaluation Date of Evaluation: 07/13/18 Time of Evaluation: 10:00 - Subjective Subjective: pt is c/o aching painat left side of his face Palpation of TMJ elicits the pain and makes it worse VS stable denies chest pain / sob Objective - Vital Signs/Intake and Output Vital Signs (last 24 hours): Temp Pulse Resp BP Pulse Ox 98.4 F 59 L 20 134/72 96 07/13/18 08:00 07/13/18 08:00 07/13/18 08:00 07/13/18 08:00 07/13/18 08:00 - Medications Medications: Current Medications Acetaminophen (Tylenol 325mg Tab) 650 mg PO Q6 PRN PRN Reason: Fever >100.4 F Acetaminophen (Tylenol 325mg Tab) 650 mg PO Q6 PRN PRN Reason: Pain, moderate (4-7) Last Admin: 07/13/18 06:55 Dose: 650 mg Allopurinol (Zyloprim) 100 mg PO DAILY [facility] Last Admin: 07/13/18 09:18 Dose: 100 mg Aspirin (Ecotrin) 81 mg PO DAILY [facility] Last Admin: 07/13/18 09:18 Dose: 81 mg Atorvastatin Calcium (Lipitor) 40 mg PO DAILY [facility] Last Admin: 07/13/18 09:18 Dose: 40 mg Clopidogrel Bisulfate (Plavix) 75 mg PO DAILY [facility] Last Admin: 07/13/18 09:18 Dose: 75 mg Enoxaparin Sodium (Lovenox) 100 mg SC DAILY [facility] PRN Reason: Protocol Last Admin: 07/13/18 09:16 Dose: 100 mg Glyburide (Micronase) 5 mg PO DAILY [facility] Last Admin: 07/13/18 09:18 Dose: 5 mg Ibuprofen (Motrin Tab) 400 mg PO Q6 PRN PRN Reason: Headache Last Admin: 07/13/18 09:17 Dose: 400 mg Insulin Human Lispro (Humalog) 0 units SC [facility] PRN Reason: Protocol Last Admin: 07/13/18 06:50 Dose: Not Given Lacosamide (Vimpat) 50 mg PO BID [facility] Last Admin: 07/13/18 09:50 Dose: 50 mg Levothyroxine Sodium (Synthroid) 50 mcg PO DAILY@0630 [facility] Last Admin: 07/13/18 06:53 Dose: 50 mcg Nystatin (Mycostatin Cream) 1 applic TOP TID [facility] Last Admin: 07/13/18 09:17 Dose: 1 applic Pantoprazole Sodium (Protonix Ec Tab) 40 mg PO DAILY [facility] Last Admin: 07/13/18 09:17 Dose: 40 mg Polyethylene Glycol (Miralax) 17 gm PO BID PRN PRN Reason: Constipation Last Admin: 07/08/18 16:57 Dose: 17 gm Trazodone HCl (Desyrel) 50 mg PO HS [facility] Last Admin: 07/12/18 21:57 Dose: 50 mg - Labs Labs: 07/09/18 04:45 07/09/18 04:45 PT 12.1 Seconds (9.8-13.1) 07/09/18 04:45 INR 1.1 07/09/18 04:45 APTT 51.6 Seconds (25.6-37.1) H 07/09/18 04:45 Assessment and Plan (1) Non-ST elevation (NSTEMI) myocardial infarction Status: Acute (2) Controlled type 2 diabetes mellitus Status: Acute (3) Essential (primary) hypertension Status: Acute (4) Hemiplegia affecting dominant side, post-stroke Status: Acute (5) History of permanent cardiac pacemaker placement Status: Acute (6) CKD (chronic kidney disease) stage 3, GFR 30-59 ml/min Status: Chronic
[2018-07-14] MEDS: Levothyroxine 50 MCG TAB PO SCH (05:38)
[2018-07-14] MEDS: Insulin Lispro (humaLOG) 100 Units/ml Inj SC SCH ×4 (08:15→21:42)
[2018-07-14] MEDS: Lacosamide 50 MG Tab PO SCH ×2 (09:38→16:56)
[2018-07-14] MEDS: Enoxaparin 100 mg Syringe SC SCH (09:39)
[2018-07-14] MEDS: Pantoprazole 40 mg EC Tab PO SCH (09:41)
--- NOTE | 2018-07-14 10:27 | CP.PCM.PN ---
Subjective - Date & Time of Evaluation Date of Evaluation: 07/14/18 Time of Evaluation: 10:00 - Subjective Subjective: pt feels well no chest pain or SOB Pt and family refuse cath but prefer to have a pharmacologic Stress test Objective - Vital Signs/Intake and Output Vital Signs (last 24 hours): Temp Pulse Resp BP Pulse Ox 98.1 F 47 L 20 136/74 95 07/14/18 08:00 07/14/18 08:00 07/14/18 08:00 07/14/18 08:00 07/14/18 08:00 - Medications Medications: Current Medications Acetaminophen (Tylenol 325mg Tab) 650 mg PO Q6 PRN PRN Reason: Fever >100.4 F Acetaminophen (Tylenol 325mg Tab) 650 mg PO Q6 PRN PRN Reason: Pain, moderate (4-7) Last Admin: 07/13/18 06:55 Dose: 650 mg Allopurinol (Zyloprim) 100 mg PO DAILY [facility] Last Admin: 07/14/18 09:41 Dose: 100 mg Aspirin (Ecotrin) 81 mg PO DAILY [facility] Last Admin: 07/14/18 09:41 Dose: 81 mg Atorvastatin Calcium (Lipitor) 40 mg PO DAILY [facility] Last Admin: 07/13/18 09:18 Dose: 40 mg Clopidogrel Bisulfate (Plavix) 75 mg PO DAILY [facility] Last Admin: 07/14/18 09:40 Dose: 75 mg Glyburide (Micronase) 5 mg PO DAILY [facility] Last Admin: 07/14/18 09:41 Dose: 5 mg Ibuprofen (Motrin Tab) 400 mg PO Q6 PRN PRN Reason: Headache Last Admin: 07/14/18 09:40 Dose: 400 mg Insulin Human Lispro (Humalog) 0 units SC [facility] PRN Reason: Protocol Last Admin: 07/14/18 08:15 Dose: Not Given Lacosamide (Vimpat) 50 mg PO BID [facility] Last Admin: 07/14/18 09:38 Dose: 50 mg Levothyroxine Sodium (Synthroid) 50 mcg PO DAILY@0630 [facility] Last Admin: 07/14/18 05:38 Dose: 50 mcg Nystatin (Mycostatin Cream) 1 applic TOP TID [facility] Last Admin: 07/14/18 09:38 Dose: 1 applic Pantoprazole Sodium (Protonix Ec Tab) 40 mg PO DAILY [facility] Last Admin: 07/14/18 09:41 Dose: 40 mg Polyethylene Glycol (Miralax) 17 gm PO BID PRN PRN Reason: Constipation Last Admin: 07/08/18 16:57 Dose: 17 gm Trazodone HCl (Desyrel) 50 mg PO HS [facility] Last Admin: 07/13/18 21:32 Dose: 50 mg - Labs Labs: 07/09/18 04:45 07/09/18 04:45 PT 12.1 Seconds (9.8-13.1) 07/09/18 04:45 INR 1.1 07/09/18 04:45 APTT 51.6 Seconds (25.6-37.1) H 07/09/18 04:45 Assessment and Plan (1) Non-ST elevation (NSTEMI) myocardial infarction Assessment & Plan: Phamacologic Stress Test Status: Acute (2) Controlled type 2 diabetes mellitus Status: Acute (3) Essential (primary) hypertension Status: Acute (4) Hemiplegia affecting dominant side, post-stroke Status: Acute (5) History of permanent cardiac pacemaker placement Status: Acute (6) CKD (chronic kidney disease) stage 3, GFR 30-59 ml/min Status: Chronic
[2018-07-15] MEDS: Levothyroxine 50 MCG TAB PO SCH (06:11)
[2018-07-15] MEDS: Insulin Lispro (humaLOG) 100 Units/ml Inj SC SCH ×4 (07:52→21:47)
[2018-07-15] MEDS ORDERED: Aminophylline 25 mg/ml Inj ONE (09:26)
[2018-07-15] MEDS: Lacosamide 50 MG Tab PO SCH ×2 (10:41→17:40)
[2018-07-15] MEDS: Pantoprazole 40 mg EC Tab PO SCH (10:54)
[2018-07-16 00:09] VITALS: PULSE 60
[2018-07-16] MEDS: Levothyroxine 50 MCG TAB PO SCH (06:08)
[2018-07-16] MEDS: Insulin Lispro (humaLOG) 100 Units/ml Inj SC SCH ×2 (06:47→12:30)
[2018-07-16] MEDS ORDERED: Enoxaparin 100 mg Syringe SC SCH (09:00)
[2018-07-16] MEDS: Pantoprazole 40 mg EC Tab PO SCH (09:47)
[2018-07-16] MEDS: Lacosamide 50 MG Tab PO SCH ×2 (09:47→16:27)
--- NOTE | 2018-07-16 11:30 | CP.PCM.PN ---
Subjective - Date & Time of Evaluation Date of Evaluation: 07/16/18 Time of Evaluation: 10:00 - Subjective Subjective: pt doing well he refused to do the 2* part of the Stress Test No conclusions can be drawn will transfer to TCU Objective - Vital Signs/Intake and Output Vital Signs (last 24 hours): Temp Pulse Resp BP Pulse Ox 98.2 F 60 18 137/69 94 L 07/16/18 08:04 07/16/18 08:04 07/16/18 08:04 07/16/18 08:04 07/16/18 08:04 - Medications Medications: Current Medications Acetaminophen (Tylenol 325mg Tab) 650 mg PO Q6 PRN PRN Reason: Fever >100.4 F Acetaminophen (Tylenol 325mg Tab) 650 mg PO Q6 PRN PRN Reason: Pain, moderate (4-7) Last Admin: 07/13/18 06:55 Dose: 650 mg Allopurinol (Zyloprim) 100 mg PO DAILY [facility] Last Admin: 07/16/18 09:46 Dose: 100 mg Aspirin (Ecotrin) 81 mg PO DAILY [facility] Last Admin: 07/16/18 09:47 Dose: 81 mg Atorvastatin Calcium (Lipitor) 40 mg PO DAILY [facility] Last Admin: 07/16/18 09:47 Dose: 40 mg Clopidogrel Bisulfate (Plavix) 75 mg PO DAILY [facility] Last Admin: 07/16/18 09:47 Dose: 75 mg Enoxaparin Sodium (Lovenox) 100 mg SC DAILY [facility] PRN Reason: Protocol Last Admin: 07/16/18 10:29 Dose: 100 mg Fluocinonide (Lidex 0.05% Cream) 1 applic EXT TID [facility] Last Admin: 07/16/18 09:48 Dose: 1 applic Glyburide (Micronase) 5 mg PO DAILY [facility] Last Admin: 07/16/18 09:46 Dose: 5 mg Ibuprofen (Motrin Tab) 400 mg PO Q6 PRN PRN Reason: Headache Last Admin: 07/16/18 00:22 Dose: 400 mg Insulin Human Lispro (Humalog) 0 units SC ACHS [facility] PRN Reason: Protocol Last Admin: 07/16/18 06:47 Dose: Not Given Lacosamide (Vimpat) 50 mg PO BID [facility] Last Admin: 07/16/18 09:47 Dose: 50 mg Levothyroxine Sodium (Synthroid) 50 mcg PO DAILY@0630 [facility] Last Admin: 07/16/18 06:08 Dose: 50 mcg Nystatin (Mycostatin Cream) 1 applic TOP TID [facility] Last Admin: 07/16/18 09:48 Dose: 1 applic Pantoprazole Sodium (Protonix Ec Tab) 40 mg PO DAILY [facility] Last Admin: 07/16/18 09:47 Dose: 40 mg Polyethylene Glycol (Miralax) 17 gm PO BID PRN PRN Reason: Constipation Last Admin: 07/08/18 16:57 Dose: 17 gm Trazodone HCl (Desyrel) 50 mg PO HS [facility] Last Admin: 07/15/18 21:15 Dose: 50 mg - Labs Labs: 07/09/18 04:45 07/09/18 04:45 PT 12.1 Seconds (9.8-13.1) 07/09/18 04:45 INR 1.1 07/09/18 04:45 APTT 51.6 Seconds (25.6-37.1) H 07/09/18 04:45 Assessment and Plan (1) Non-ST elevation (NSTEMI) myocardial infarction Status: Acute (2) Controlled type 2 diabetes mellitus Status: Acute (3) Essential (primary) hypertension Status: Acute (4) Hemiplegia affecting dominant side, post-stroke Status: Acute (5) History of permanent cardiac pacemaker placement Status: Acute (6) CKD (chronic kidney disease) stage 3, GFR 30-59 ml/min Status: Chronic
[2018-07-16 15:56] VITALS: BP 128/69; RESP 17; TEMP 97.6
[2018-07-16 16:38] VITALS: BMI 36.7
--- NOTE | 2018-07-16 16:40 | CP.PCM.DIS ---
Provider - Provider Date of Admission: 07/07/18 20:28 Attending physician: Douglas Weiss MD Primary care physician: Yvonne Weiss Consults: Dr Gooden Time Spent in preparation of Discharge (in minutes): 55 Diagnosis - Discharge Diagnosis (1) Non-ST elevation (NSTEMI) myocardial infarction Status: Acute (2) Controlled type 2 diabetes mellitus Status: Acute (3) Essential (primary) hypertension Status: Acute (4) Hemiplegia affecting dominant side, post-stroke Status: Acute (5) History of permanent cardiac pacemaker placement Status: Acute (6) CKD (chronic kidney disease) stage 3, GFR 30-59 ml/min Status: Chronic Priority: Medium Hospital Course - Lab Results Lab Results: Micro Results 07/09/18 19:05 Naris MRSA Culture (Admit) - Final MRSA NOT DETECTED 07/08/18 20:00 Naris MRSA Culture (Admit) - Final MRSA NOT DETECTED Most Recent Lab Values WBC 5.2 K/uL (4.8-10.8) 07/09/18 04:45 RBC 3.54 Mil/uL (4.40-5.90) L 07/09/18 04:45 Hgb 11.7 g/dL (12.0-18.0) L 07/09/18 04:45 Hct 34.3 % (35.0-51.0) L 07/09/18 04:45 MCV 96.9 fl (80.0-94.0) H 07/09/18 04:45 MCH 33.1 pg (27.0-31.0) H 07/09/18 04:45 MCHC 34.2 g/dL (33.0-37.0) 07/09/18 04:45 RDW 14.6 % (11.5-14.5) H 07/09/18 04:45 Plt Count 179 K/uL (130-400) 07/09/18 04:45 MPV 8.5 fl (7.2-11.7) 07/07/18 18:58 Neut % (Auto) 79.9 % (50.0-75.0) H 07/07/18 18:58 Lymph % (Auto) 11.5 % (20.0-40.0) L 07/07/18 18:58 Vigo % (Auto) 6.5 % (0.0-10.0) 07/07/18 18:58 Eos % (Auto) 1.9 % (0.0-4.0) 07/07/18 18:58 Baso % (Auto) 0.2 % (0.0-2.0) 18 18:58 Neut # (Auto) 7.0 K/uL (1.8-7.0) 07/07/18 18:58 Lymph # (Auto) 1.0 K/uL (1.0-4.3) 07/07/18 18:58 Vigo # (Auto) 0.6 K/uL (0.0-0.8) 07/07/18 18:58 Eos # (Auto) 0.2 K/uL (0.0-0.7) 07/07/18 18:58 Baso # (Auto) 0.0 K/uL (0.0-0.2) 07/07/18 18:58 PT 12.1 Seconds (9.8-13.1) 07/09/18 04:45 INR 1.1 07/09/18 04:45 APTT 51.6 Seconds (25.6-37.1) H 07/09/18 04:45 Sodium 140 mmol/l (132-148) 07/09/18 04:45 Potassium 4.5 MMOL/L (3.6-5.0) 07/09/18 04:45 Chloride 104 mmol/L (98-107) 07/09/18 04:45 Carbon Dioxide 27 mmol/L (22-30) 07/09/18 04:45 Anion Gap 14 (10-20) 07/09/18 04:45 BUN 36 mg/dl (9-20) H 07/09/18 04:45 Creatinine 2.5 mg/dl (0.8-1.5) H 07/09/18 04:45 Est GFR ( Amer) 30 07/09/18 04:45 Est GFR (Non-Af Amer) 24 07/09/18 04:45 POC Glucose (mg/dL) 164 mg/dL (65-110) H 07/16/18 11:06 Random Glucose 109 mg/dL (75-110) 07/09/18 04:45 Calcium 8.8 mg/dL (8.4-10.2) 07/09/18 04:45 Total Bilirubin 0.5 mg/dl (0.2-1.3) 07/07/18 18:58 AST 95 U/L (17-59) H D 07/07/18 18:58 ALT 30 U/L (21-72) 07/07/18 18:58 Alkaline Phosphatase 137 U/L (38-126) H D 07/07/18 18:58 Troponin I 21.9000 ng/mL (0.00-0.120) H* 07/09/18 11:06 Total Protein 7.3 G/DL (6.3-8.2) 07/07/18 18:58 Albumin 4.2 g/dL (3.5-5.0) 07/07/18 18:58 Globulin 3.1 gm/dL (2.2-3.9) 07/07/18 18:58 Albumin/Globulin Ratio 1.4 (1.0-2.1) 07/07/18 18:58 Lipase 95 U/L (23-300) 07/07/18 18:58 Urine Color Yellow (YELLOW) 07/07/18 21:31 Urine Clarity Clear (Clear) 07/07/18 21:31 Urine pH 6.0 (5.0-8.0) 07/07/18 21:31 Ur Specific Kathleen 1.013 (1.003-1.030) 07/07/18 21:31 Urine Protein Negative mg/dL (NEGATIVE) 07/07/18 21:31 Urine Glucose (UA) Neg mg/dL (Normal) 07/07/18 21:31 Urine Ketones Negative mg/dL (NEGATIVE) 07/07/18 21:31 Urine Blood Negative (NEGATIVE) 07/07/18 21:31 Urine Nitrate Negative (NEGATIVE) 07/07/18 21:31 Urine Bilirubin Negative (NEGATIVE) 07/07/18 21:31 Urine Urobilinogen 0.2-1.0 mg/dL (0.2-1.0) 07/07/18 21:31 Ur Leukocyte Esterase Neg Juancarlos/uL (Negative) 07/07/18 21:31 Urine RBC (Auto) 1 /hpf (0-3) 07/07/18 21:31 Urine Microscopic WBC 1 /hpf (0-5) 07/07/18 21:31 Hyaline Casts 6-10 /hpf (0-2) H 07/07/18 21:31 - Hospital Course Hospital Course: Pt admitted with N/V epigastric distress Troponins were elevated EKG: PMR Dx: NSTEMI Consult called with DR Gooden for Cardiac Cath Pt and family refused Pharmacologic Stress test (Lexiscan) Pt did the first part but refused the 2* part No Dx could be made - Date & Time of H&P Date of H&P: 07/16/18 Time of H&P: 04:00 Discharge Exam - Head Exam Head Exam: ATRAUMATIC, NORMAL INSPECTION, NORMOCEPHALIC Discharge Plan - Follow Up Plan Disposition: REHAB FACILITY/REHAB UNIT Instructions: Heart Healthy Diet, Heart Attack (DC), Clot Dissolving Drugs for Heart Attack or Stroke
[2018-07-17 13:59] VITALS: O2SAT 100
== END 2018-07-16 17:00 | DRG 281 ==
LOC: H.ER 18:12 → H.ERHOLD 20:28 → H.ICU/CCU 07-08 01:45 → H.TEL 07-09 16:31
PROVIDERS: ADMIT Internal Medicine Cardiovascular Disease; ATTEND Internal Medicine Cardiovascular Disease
DX: I21.4 Non-ST elevation (NSTEMI) myocardial infarction (principal); I69.351 Hemiplegia and hemiparesis following cerebral infarction affecting right dominant side; I69.320 Aphasia following cerebral infarction; G40.909 Epilepsy, unspecified, not intractable, without status epilepticus; I12.9 Hypertensive chronic kidney disease with stage 1 through stage 4 chronic kidney disease, or unspecified chronic kidney disease; E11.22 Type 2 diabetes mellitus with diabetic chronic kidney disease; I25.10 Atherosclerotic heart disease of native coronary artery without angina pectoris; M19.90 Unspecified osteoarthritis, unspecified site; E78.00 Pure hypercholesterolemia, unspecified; Z95.5 Presence of coronary angioplasty implant and graft; Z95.0 Presence of cardiac pacemaker; Z74.01 Bed confinement status; E78.5 Hyperlipidemia, unspecified; Z87.891 Personal history of nicotine dependence; R51 Headache; N18.3 Chronic kidney disease, stage 3 (moderate); E03.9 Hypothyroidism, unspecified; Z53.8 Procedure and treatment not carried out for other reasons

== ENCOUNTER 2018-07-16 15:26 | Inpatient (IN) | payer OTHER, MEDICARE ==
[2018-07-16 17:27] VITALS: BMI 34.4
[2018-07-17 06:00] LABS: HEMOGLOBIN 10.8 g/dL (12.0-18.0); MEAN CELL VOLUME 97.2 fl (80.0-94.0); MEAN CORPUSCULAR HEMOGLOBIN 32.8 pg (27.0-31.0); MEAN CORPUSCULAR HGB CONC 33.7 g/dL (33.0-37.0); RBC 3.3 Mil/uL (4.40-5.90); RED CELL DISTRIBUTION WIDTH 14.9 % (11.5-14.5); WHITE BLOOD COUNT 5.8 K/uL (4.8-10.8)
[2018-07-17 06:17] LABS: CALCIUM 8.1 mg/dL (8.4-10.2)
[2018-07-17] MEDS: Insulin Lispro (humaLOG) 100 Units/ml Inj SC SCH ×4 (06:23→16:57)
[2018-07-17] MEDS: Levothyroxine 50 MCG TAB PO SCH (06:47)
[2018-07-17] MEDS: POLYETHYLENE GLYCOL 3350 17 GM/Dose PACKET PO PRN (08:18)
[2018-07-17] MEDS: Pantoprazole 40 mg EC Tab PO SCH (08:19)
[2018-07-17] MEDS: Enoxaparin 100 mg Syringe SC SCH (08:20)
[2018-07-17] MEDS: Lacosamide 50 MG Tab PO SCH ×2 (08:57→17:05)
--- NOTE | 2018-07-17 09:20 | CP.PCM.HP ---
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 Hypertension NIDDM Seizure Disorder 07/03/2016 Perm PM insertion CRF Stage 3 Present on Admission - Present on Admission Any Indicators Present on Admission: No Review of Systems - Review of Systems Systems not reviewed;Unavailable: Acuity of Condition Past Patient History - Infectious Disease Hx of Infectious Diseases: None - Past Medical History & Family History Past Medical History?: Yes - Past Social History Smoking Status: Former Smoker - CARDIAC Hx Heart Attack: Yes Hx Hypertension: Yes Hx Pacemaker: Yes - PULMONARY Hx Respiratory Disorders: No - NEUROLOGICAL HX Cerebrovascular Accident: Yes (right sided weakness) Hx Seizures: Yes Hx Transient Ischemic Attacks (TIA): Yes - HEENT Hx Cataracts: Yes - RENAL Hx Chronic Kidney Disease: Yes - ENDOCRINE/METABOLIC Hx Endocrine Disorders: Yes Hx Diabetes Mellitus Type 2: Yes - HEMATOLOGICAL/ONCOLOGICAL Hx AIDS: No Hx Anemia: No Hx Cancer: Yes (skin cancer) Hx Human Immunodeficiency Virus (HIV): No - INTEGUMENTARY Hx Dermatological Problems: Yes Other/Comment: Hx skin cancer - MUSCULOSKELETAL/RHEUMATOLOGICAL Hx Arthritis: Yes Hx Falls: No - GASTROINTESTINAL Hx Gastrointestinal Disorders: No - GENITOURINARY/GYNECOLOGICAL Hx Genitourinary Disorders: No - PSYCHIATRIC Hx Psychophysiologic Disorder: No Hx Substance Use: No - SURGICAL HISTORY Hx Coronary Stent: Yes - ANESTHESIA Hx Anesthesia: Yes Hx Anesthesia Reactions: No Hx Malignant Hyperthermia: No Has any member of the family had a problem w/ anesthesia?: No Meds Allergies/Adverse Reactions: Allergies Allergy/AdvReac Type Severity Reaction Status Date / Time No Known Allergies Allergy Verified 07/16/18 17:27 Physical Exam - Constitutional Appears: Well - Head Exam Head Exam: NORMAL INSPECTION - Eye Exam Eye Exam: Normal appearance - Respiratory Exam Respiratory Exam: NORMAL BREATHING PATTERN - Cardiovascular Exam Cardiovascular Exam: REGULAR RHYTHM - Neurological Exam Additional comments: Ahasic / Right Hemiplegia 2* to old CVA - Expanded Neurological Exam Expanded Neurological exam: Expressive Aphasia Speech: Expressive Aphasia Neuro motor strength exam: Right Upper Extremity: 0, Right Lower Extremity: 0 Results - Vital Signs Recent Vital Signs: Last Vital Signs Temp 98.2 F 07/17/18 09:08 Pulse 61 07/17/18 09:08 Resp 20 07/17/18 09:08 BP 123/62 07/17/18 09:08 Pulse Ox 98 07/17/18 09:08 - Labs Result Diagrams: 07/17/18 05:47 07/17/18 05:47 Labs: Laboratory Results - last 24 hr 07/17/18 07/17/18 05:47 05:47 WBC 5.8 RBC 3.30 L Hgb 10.8 L Hct 32.0 L MCV 97.2 H MCH 32.8 H MCHC 33.7 RDW 14.9 H Plt Count 173 Sodium 137 Potassium 4.7 Chloride 108 H Carbon Dioxide 22 Anion Gap 12 BUN 29 H Creatinine 2.0 H Est GFR ( Amer) 38 Est GFR (Non-Af Amer) 32 Random Glucose 117 H Calcium 8.1 L Assessment & Plan (1) CVA, old, aphasia Status: Acute Onset Date: 04/25/07 (2) Controlled type 2 diabetes mellitus Status: Acute (3) Essential (primary) hypertension Status: Acute (4) Hemiplegia affecting dominant side, post-stroke Status: Acute (5) History of permanent cardiac pacemaker placement Status: Acute (6) Non-ST elevation (NSTEMI) myocardial infarction Status: Acute (7) Seizure disorder as sequela of cerebrovascular accident Status: Acute (8) CKD (chronic kidney disease) stage 3, GFR 30-59 ml/min Status: Chronic Priority: Medium
[2018-07-18] MEDS: Insulin Lispro (humaLOG) 100 Units/ml Inj SC SCH ×5 (00:51→22:32)
[2018-07-18] MEDS: Levothyroxine 50 MCG TAB PO SCH (06:33)
[2018-07-18] MEDS: Enoxaparin 100 mg Syringe SC SCH (08:36)
[2018-07-18] MEDS: Pantoprazole 40 mg EC Tab PO SCH (08:37)
[2018-07-18] MEDS: Lacosamide 50 MG Tab PO SCH ×2 (08:39→16:50)
[2018-07-19] MEDS: Levothyroxine 50 MCG TAB PO SCH (06:21)
[2018-07-19] MEDS: Insulin Lispro (humaLOG) 100 Units/ml Inj SC SCH ×4 (07:14→22:20)
[2018-07-19] MEDS: POLYETHYLENE GLYCOL 3350 17 GM/Dose PACKET PO PRN (08:31)
[2018-07-19] MEDS: Pantoprazole 40 mg EC Tab PO SCH (08:32)
[2018-07-19] MEDS: Enoxaparin 100 mg Syringe SC SCH (08:32)
[2018-07-19] MEDS: Lacosamide 50 MG Tab PO SCH ×2 (08:48→17:55)
[2018-07-20] MEDS: Levothyroxine 50 MCG TAB PO SCH (06:16)
[2018-07-20] MEDS: Insulin Lispro (humaLOG) 100 Units/ml Inj SC SCH ×4 (06:54→22:56)
[2018-07-20] MEDS: Lacosamide 50 MG Tab PO SCH ×2 (08:24→16:55)
[2018-07-20] MEDS: Pantoprazole 40 mg EC Tab PO SCH (08:24)
[2018-07-20] MEDS: Enoxaparin 100 mg Syringe SC SCH (08:32)
[2018-07-21] MEDS ORDERED: guaiFENesin DM 200 mg-20 mg/10 ml UD PO ONE (01:28)
[2018-07-21] MEDS: Levothyroxine 50 MCG TAB PO SCH (06:02)
[2018-07-21] MEDS: Insulin Lispro (humaLOG) 100 Units/ml Inj SC SCH ×4 (06:46→22:24)
[2018-07-21] MEDS: Pantoprazole 40 mg EC Tab PO SCH (08:03)
[2018-07-21] MEDS: Lacosamide 50 MG Tab PO SCH ×2 (08:06→17:00)
--- NOTE | 2018-07-21 11:04 | CP.PCM.PN ---
Subjective - Date & Time of Evaluation Date of Evaluation: 07/21/18 Time of Evaluation: 10:00 - Subjective Subjective: Feels well doing well with PT VS Stable Objective - Vital Signs/Intake and Output Vital Signs (last 24 hours): Temp Pulse Resp BP Pulse Ox 97.9 F 62 20 116/59 L 94 L 07/21/18 09:21 07/21/18 09:21 07/21/18 09:21 07/20/18 19:44 07/21/18 09:21 - Medications Medications: Current Medications Acetaminophen (Tylenol 325mg Tab) 650 mg PO Q6 PRN PRN Reason: Fever >100.4 F Allopurinol (Zyloprim) 100 mg PO DAILY [facility]S [facility] BEDS AT [facility] Last Admin: 07/21/18 08:03 Dose: 100 mg Aspirin (Ecotrin) 81 mg PO DAILY COUNTS INCLUDE 234 BEDS AT [facility] Last Admin: 07/21/18 08:06 Dose: 81 mg Atorvastatin Calcium (Lipitor) 40 mg PO DAILY COUNTS [facility]CLUDE 234 BEDS AT [facility] Last Admin: 07/21/18 08:02 Dose: 40 mg Clopidogrel Bisulfate (Plavix) 75 mg PO DAILY COUNTS [facility]CLUDE 234 BEDS AT [facility] Last Admin: 07/21/18 08:03 Dose: 75 mg Fluocinonide (Lidex 0.05% Cream) 1 applic TOP TID COUNTS INCLUDE 234 BEDS AT [facility] Last Admin: 07/21/18 08:02 Dose: 1 u Glyburide (Micronase) 5 mg PO DAILYWM COUNTS INCLUDE 234 BEDS AT [facility] Last Admin: 07/21/18 08:04 Dose: 5 mg Ibuprofen (Motrin Tab) 400 mg PO Q6 PRN PRN Reason: headace Insulin Human Lispro (Humalog) 0 units SC ACCU-CHECK COUNTS INCLUDE 234 BEDS AT [facility] PRN Reason: Protocol Last Admin: 07/21/18 06:46 Dose: 2 u Lacosamide (Vimpat) 50 mg PO BID COUNTS INCLUDE 234 BEDS AT [facility] Last Admin: 07/21/18 08:06 Dose: 50 mg Levothyroxine Sodium (Synthroid) 50 mcg PO DAILY@0630 COUNTS INCLUDE 234 BEDS AT [facility] Last Admin: 07/21/18 06:02 Dose: 50 mcg Nystatin (Nystop Topical Powder) 1 applic TOP TID COUNTS INCLUDE 234 BEDS AT [facility] Last Admin: 07/21/18 08:02 Dose: 1 u Pantoprazole Sodium (Protonix Ec Tab) 40 mg PO DAILY COUNTS [facility]CLUDE 234 BEDS AT [facility] Last Admin: 07/21/18 08:03 Dose: 40 mg Polyethylene Glycol (Miralax) 17 gm PO DAILY PRN PRN Reason: Constipation Last Admin: 07/19/18 08:31 Dose: 17 gm Trazodone HCl (Desyrel) 50 mg PO HS [facility] Last Admin: 07/20/18 21:23 Dose: 50 mg - Labs Labs: 07/17/18 05:47 07/17/18 05:47 Assessment and Plan (1) CVA, old, aphasia Status: Acute (2) Controlled type 2 diabetes mellitus Status: Acute (3) Essential (primary) hypertension Status: Acute (4) Hemiplegia affecting dominant side, post-stroke Status: Acute (5) History of permanent cardiac pacemaker placement Status: Acute (6) Non-ST elevation (NSTEMI) myocardial infarction Status: Acute (7) Seizure disorder as sequela of cerebrovascular accident Status: Acute (8) CKD (chronic kidney disease) stage 3, GFR 30-59 ml/min Status: Chronic
[2018-07-21 19:30] VITALS: RESP 20
[2018-07-22] MEDS: Levothyroxine 50 MCG TAB PO SCH (05:38)
[2018-07-22] MEDS: Insulin Lispro (humaLOG) 100 Units/ml Inj SC SCH ×4 (06:58→22:03)
[2018-07-22] MEDS: Pantoprazole 40 mg EC Tab PO SCH (09:37)
[2018-07-22] MEDS: Lacosamide 50 MG Tab PO SCH ×2 (09:37→17:58)
--- NOTE | 2018-07-22 10:32 | CP.PCM.PN ---
Subjective - Date & Time of Evaluation Date of Evaluation: 07/22/18 Time of Evaluation: 09:00 - Subjective Subjective: Feels well cooperating with PT Transfers on his own Objective - Vital Signs/Intake and Output Vital Signs (last 24 hours): Temp Pulse Resp BP Pulse Ox 97.5 F L 59 L 20 128/59 L 100 07/22/18 08:18 07/22/18 08:18 07/22/18 08:18 07/22/18 08:18 07/22/18 08:18 - Medications Medications: Current Medications Acetaminophen (Tylenol 325mg Tab) 650 mg PO Q6 PRN PRN Reason: Fever >100.4 F Allopurinol (Zyloprim) 100 mg PO DAILY [facility] Last Admin: 07/22/18 09:37 Dose: 100 mg Aspirin (Ecotrin) 81 mg PO DAILY [facility] Last Admin: 07/22/18 09:36 Dose: 81 mg Atorvastatin Calcium (Lipitor) 40 mg PO DAILY [facility] Last Admin: 07/22/18 09:37 Dose: 40 mg Clopidogrel Bisulfate (Plavix) 75 mg PO DAILY [facility] Last Admin: 07/22/18 09:37 Dose: 75 mg Fluocinonide (Lidex 0.05% Cream) 1 applic TOP TID [facility] Last Admin: 07/22/18 09:36 Dose: 1 applic Glyburide (Micronase) 5 mg PO DAILYWM [facility] Last Admin: 07/22/18 09:36 Dose: 5 mg Ibuprofen (Motrin Tab) 400 mg PO Q6 PRN PRN Reason: headace Insulin Human Lispro (Humalog) 0 units SC ACCU-CHECK [facility] PRN Reason: Protocol Last Admin: 07/22/18 06:58 Dose: Not Given Lacosamide (Vimpat) 50 mg PO BID [facility] Last Admin: 07/22/18 09:37 Dose: 50 mg Levothyroxine Sodium (Synthroid) 50 mcg PO DAILY@0630 [facility] Last Admin: 07/22/18 05:38 Dose: 50 mcg Nystatin (Nystop Topical Powder) 1 applic TOP TID [facility] Last Admin: 07/22/18 09:37 Dose: 1 applic Pantoprazole Sodium (Protonix Ec Tab) 40 mg PO DAILY [facility] Last Admin: 07/22/18 09:37 Dose: 40 mg Polyethylene Glycol (Miralax) 17 gm PO DAILY PRN PRN Reason: Constipation Last Admin: 07/19/18 08:31 Dose: 17 gm Trazodone HCl (Desyrel) 50 mg PO HS [facility] Last Admin: 07/21/18 21:16 Dose: 50 mg - Labs Labs: 07/17/18 05:47 07/17/18 05:47 Assessment and Plan (1) CVA, old, aphasia Status: Acute (2) Controlled type 2 diabetes mellitus Status: Acute (3) Essential (primary) hypertension Status: Acute (4) Hemiplegia affecting dominant side, post-stroke Status: Acute (5) History of permanent cardiac pacemaker placement Status: Acute (6) Non-ST elevation (NSTEMI) myocardial infarction Status: Acute (7) Seizure disorder as sequela of cerebrovascular accident Status: Acute (8) CKD (chronic kidney disease) stage 3, GFR 30-59 ml/min Status: Chronic
[2018-07-23] MEDS: Levothyroxine 50 MCG TAB PO SCH (05:56)
[2018-07-23] MEDS: POLYETHYLENE GLYCOL 3350 17 GM/Dose PACKET PO PRN (05:59)
[2018-07-23] MEDS: Pantoprazole 40 mg EC Tab PO SCH (08:24)
[2018-07-23] MEDS: Lacosamide 50 MG Tab PO SCH ×2 (08:27→16:50)
[2018-07-23] MEDS: Insulin Lispro (humaLOG) 100 Units/ml Inj SC SCH ×3 (08:28→16:50)
--- NOTE | 2018-07-23 11:15 | CP.PCM.PN ---
Subjective - Date & Time of Evaluation Date of Evaluation: 07/23/18 Time of Evaluation: 10:00 - Subjective Subjective: Feels well Pt has sl oedal edema will start Lasix 40mg Daily Objective - Vital Signs/Intake and Output Vital Signs (last 24 hours): Temp Pulse Resp BP Pulse Ox 98.1 F 60 20 149/64 96 07/23/18 10:00 07/23/18 10:00 07/23/18 10:00 07/23/18 10:00 07/23/18 10:00 - Medications Medications: Current Medications Acetaminophen (Tylenol 325mg Tab) 650 mg PO Q6 PRN PRN Reason: Fever >100.4 F Allopurinol (Zyloprim) 100 mg PO DAILY [facility] Last Admin: 07/23/18 08:24 Dose: 100 mg Aspirin (Ecotrin) 81 mg PO DAILY [facility] Last Admin: 07/23/18 08:24 Dose: 81 mg Atorvastatin Calcium (Lipitor) 40 mg PO DAILY [facility] Last Admin: 07/23/18 08:23 Dose: 40 mg Clopidogrel Bisulfate (Plavix) 75 mg PO DAILY [facility] Last Admin: 07/23/18 08:23 Dose: 75 mg Fluocinonide (Lidex 0.05% Cream) 1 applic TOP TID [facility] Last Admin: 07/23/18 08:23 Dose: 1 applic Furosemide (Lasix) 40 mg PO DAILY [facility] Glyburide (Micronase) 5 mg PO DAILYWM [facility] Last Admin: 07/23/18 08:23 Dose: 5 mg Ibuprofen (Motrin Tab) 400 mg PO Q6 PRN PRN Reason: headace Insulin Human Lispro (Humalog) 0 units SC ACCU-CHECK [facility] PRN Reason: Protocol Last Admin: 07/23/18 08:28 Dose: Not Given Lacosamide (Vimpat) 50 mg PO BID [facility] Last Admin: 07/23/18 08:27 Dose: 50 mg Levothyroxine Sodium (Synthroid) 50 mcg PO DAILY@0630 [facility] Last Admin: 07/23/18 05:56 Dose: 50 mcg Nystatin (Nystop Topical Powder) 1 applic TOP TID [facility] Last Admin: 07/23/18 08:23 Dose: 1 applic Pantoprazole Sodium (Protonix Ec Tab) 40 mg PO DAILY [facility] Last Admin: 07/23/18 08:24 Dose: 40 mg Polyethylene Glycol (Miralax) 17 gm PO DAILY PRN PRN Reason: Constipation Last Admin: 07/23/18 05:59 Dose: 17 gm Trazodone HCl (Desyrel) 50 mg PO HS [facility] Last Admin: 07/22/18 21:08 Dose: 50 mg - Labs Labs: 07/17/18 05:47 07/17/18 05:47 Assessment and Plan (1) CVA, old, aphasia Status: Acute (2) Controlled type 2 diabetes mellitus Status: Acute (3) Essential (primary) hypertension Status: Acute (4) Hemiplegia affecting dominant side, post-stroke Status: Acute (5) History of permanent cardiac pacemaker placement Status: Acute (6) Non-ST elevation (NSTEMI) myocardial infarction Status: Acute (7) Seizure disorder as sequela of cerebrovascular accident Status: Acute (8) CKD (chronic kidney disease) stage 3, GFR 30-59 ml/min Status: Chronic
[2018-07-24] MEDS: Insulin Lispro (humaLOG) 100 Units/ml Inj SC SCH ×5 (00:37→22:48)
[2018-07-24] MEDS: Levothyroxine 50 MCG TAB PO SCH (06:52)
[2018-07-24] MEDS: Pantoprazole 40 mg EC Tab PO SCH (08:21)
[2018-07-24] MEDS: Lacosamide 50 MG Tab PO SCH ×2 (08:23→16:48)
--- NOTE | 2018-07-24 13:06 | CP.PCM.PN ---
Subjective - Date & Time of Evaluation Date of Evaluation: 07/24/18 Time of Evaluation: 11:55 - Subjective Subjective: Offers no complaints feels well Objective - Vital Signs/Intake and Output Vital Signs (last 24 hours): Temp Pulse Resp BP Pulse Ox 98.2 F 60 20 132/74 95 07/24/18 07:58 07/24/18 07:58 07/24/18 07:58 07/24/18 08:21 07/24/18 07:58 - Medications Medications: Current Medications Acetaminophen (Tylenol 325mg Tab) 650 mg PO Q6 PRN PRN Reason: Fever >100.4 F Allopurinol (Zyloprim) 100 mg PO DAILY [facility] Last Admin: 07/24/18 08:21 Dose: 100 mg Aspirin (Ecotrin) 81 mg PO DAILY [facility] Last Admin: 07/24/18 08:22 Dose: 81 mg Atorvastatin Calcium (Lipitor) 40 mg PO DAILY [facility] Last Admin: 07/24/18 08:22 Dose: 40 mg Clopidogrel Bisulfate (Plavix) 75 mg PO DAILY [facility] Last Admin: 07/24/18 08:21 Dose: 75 mg Fluocinonide (Lidex 0.05% Cream) 1 applic TOP TID [facility] Last Admin: 07/24/18 12:12 Dose: 1 applic Furosemide (Lasix) 40 mg PO DAILY [facility] Last Admin: 07/24/18 08:21 Dose: 40 mg Glyburide (Micronase) 5 mg PO DAILYWM [facility] Last Admin: 07/24/18 09:55 Dose: 5 mg Ibuprofen (Motrin Tab) 400 mg PO Q6 PRN PRN Reason: headace Last Admin: 07/23/18 12:19 Dose: 400 mg Insulin Human Lispro (Humalog) 0 units SC ACCU-CHECK [facility] PRN Reason: Protocol Last Admin: 07/24/18 12:12 Dose: 3 u Lacosamide (Vimpat) 50 mg PO BID [facility] Last Admin: 07/24/18 08:23 Dose: 50 mg Levothyroxine Sodium (Synthroid) 50 mcg PO DAILY@0630 [facility] Last Admin: 07/24/18 06:52 Dose: 50 mcg Nystatin (Nystop Topical Powder) 1 applic TOP TID [facility] Last Admin: 07/24/18 12:12 Dose: 1 applic Pantoprazole Sodium (Protonix Ec Tab) 40 mg PO DAILY [facility] Last Admin: 07/24/18 08:21 Dose: 40 mg Polyethylene Glycol (Miralax) 17 gm PO DAILY PRN PRN Reason: Constipation Last Admin: 07/23/18 05:59 Dose: 17 gm Trazodone HCl (Desyrel) 50 mg PO HS [facility] Last Admin: 07/23/18 21:25 Dose: 50 mg - Labs Labs: 07/17/18 05:47 07/17/18 05:47 Assessment and Plan (1) CVA, old, aphasia Status: Acute (2) Controlled type 2 diabetes mellitus Status: Acute (3) Essential (primary) hypertension Status: Acute (4) Hemiplegia affecting dominant side, post-stroke Status: Acute (5) History of permanent cardiac pacemaker placement Status: Acute (6) Non-ST elevation (NSTEMI) myocardial infarction Status: Acute (7) Seizure disorder as sequela of cerebrovascular accident Status: Acute (8) CKD (chronic kidney disease) stage 3, GFR 30-59 ml/min Status: Chronic
[2018-07-25] MEDS: Levothyroxine 50 MCG TAB PO SCH (05:50)
[2018-07-25] MEDS: Insulin Lispro (humaLOG) 100 Units/ml Inj SC SCH ×5 (06:31→23:00)
[2018-07-25] MEDS: Pantoprazole 40 mg EC Tab PO SCH (08:39)
[2018-07-25] MEDS: Lacosamide 50 MG Tab PO SCH ×2 (08:41→17:01)
[2018-07-25] MEDS: POLYETHYLENE GLYCOL 3350 17 GM/Dose PACKET PO PRN (09:59)
--- NOTE | 2018-07-25 10:08 | CP.PCM.PN ---
Subjective - Date & Time of Evaluation Date of Evaluation: 07/25/18 Time of Evaluation: 09:00 - Subjective Subjective: Complains of pain in his back Left thoracic area muscle is tender to the touch worse when he twists/turns Muscular back pain Motrin and/or Percocet is on order Objective - Vital Signs/Intake and Output Vital Signs (last 24 hours): Temp Pulse Resp BP Pulse Ox 97.9 F 59 L 20 132/61 100 07/25/18 10:02 07/25/18 10:02 07/25/18 10:02 07/25/18 10:02 07/25/18 10:02 - Medications Medications: Current Medications Acetaminophen (Tylenol 325mg Tab) 650 mg PO Q6 PRN PRN Reason: Fever >100.4 F Allopurinol (Zyloprim) 100 mg PO DAILY [facility] Last Admin: 07/25/18 08:39 Dose: 100 mg Aspirin (Ecotrin) 81 mg PO DAILY [facility] Last Admin: 07/25/18 08:38 Dose: 81 mg Atorvastatin Calcium (Lipitor) 40 mg PO DAILY [facility] Last Admin: 07/25/18 08:39 Dose: 40 mg Clopidogrel Bisulfate (Plavix) 75 mg PO DAILY [facility] Last Admin: 07/25/18 08:39 Dose: 75 mg Fluocinonide (Lidex 0.05% Cream) 1 applic TOP TID [facility] Last Admin: 07/25/18 08:35 Dose: 1 applic Furosemide (Lasix) 40 mg PO DAILY [facility] Last Admin: 07/25/18 08:38 Dose: 40 mg Glyburide (Micronase) 5 mg PO DAILYWM [facility] Last Admin: 07/25/18 08:39 Dose: 5 mg Ibuprofen (Motrin Tab) 400 mg PO Q6 PRN PRN Reason: headace Last Admin: 07/25/18 08:39 Dose: 400 mg Insulin Human Lispro (Humalog) 0 units SC ACCU-CHECK [facility] PRN Reason: Protocol Last Admin: 07/25/18 06:38 Dose: Not Given Lacosamide (Vimpat) 50 mg PO BID [facility] Last Admin: 07/25/18 08:41 Dose: 50 mg Levothyroxine Sodium (Synthroid) 50 mcg PO DAILY@0630 [facility] Last Admin: 07/25/18 05:50 Dose: 50 mcg Nystatin (Nystop Topical Powder) 1 applic TOP TID [facility] Last Admin: 07/25/18 08:36 Dose: 1 applic Pantoprazole Sodium (Protonix Ec Tab) 40 mg PO DAILY [facility] Last Admin: 07/25/18 08:39 Dose: 40 mg Polyethylene Glycol (Miralax) 17 gm PO DAILY PRN PRN Reason: Constipation Last Admin: 07/25/18 09:59 Dose: 17 gm Trazodone HCl (Desyrel) 50 mg PO HS [facility] Last Admin: 07/24/18 22:48 Dose: 50 mg - Labs Labs: 07/17/18 05:47 07/17/18 05:47 Assessment and Plan (1) CVA, old, aphasia Status: Acute (2) Controlled type 2 diabetes mellitus Status: Acute (3) Essential (primary) hypertension Status: Acute (4) Hemiplegia affecting dominant side, post-stroke Status: Acute (5) History of permanent cardiac pacemaker placement Status: Acute (6) Non-ST elevation (NSTEMI) myocardial infarction Status: Acute (7) Seizure disorder as sequela of cerebrovascular accident Status: Acute (8) CKD (chronic kidney disease) stage 3, GFR 30-59 ml/min Status: Chronic
[2018-07-25 15:42] VITALS: PULSE 60; O2SAT 99
[2018-07-26] MEDS: Levothyroxine 50 MCG TAB PO SCH (06:02)
[2018-07-26] MEDS: Insulin Lispro (humaLOG) 100 Units/ml Inj SC SCH (06:41)
[2018-07-26 07:53] VITALS: BP 120/60; TEMP 98
[2018-07-26] MEDS: Pantoprazole 40 mg EC Tab PO SCH (09:04)
[2018-07-26] MEDS: Lacosamide 50 MG Tab PO SCH (09:09)
--- NOTE | 2018-07-27 12:19 | CP.PCM.DIS ---
Provider - Provider Date of Admission: 07/16/18 17:27 Attending physician: Douglas Weiss MD Primary care physician: ZACHERY Weiss Time Spent in preparation of Discharge (in minutes): 44 Diagnosis - Discharge Diagnosis (1) Non-ST elevation (NSTEMI) myocardial infarction Status: Acute (2) CVA, old, aphasia Status: Acute Onset Date: 04/25/07 (3) Controlled type 2 diabetes mellitus Status: Acute (4) Essential (primary) hypertension Status: Acute (5) Hemiplegia affecting dominant side, post-stroke Status: Acute (6) History of permanent cardiac pacemaker placement Status: Acute (7) Seizure disorder as sequela of cerebrovascular accident Status: Acute (8) CKD (chronic kidney disease) stage 3, GFR 30-59 ml/min Status: Chronic Priority: Medium Hospital Course - Lab Results Lab Results: Most Recent Lab Values WBC 5.8 K/uL (4.8-10.8) 07/17/18 05:47 RBC 3.30 Mil/uL (4.40-5.90) L 07/17/18 05:47 Hgb 10.8 g/dL (12.0-18.0) L 07/17/18 05:47 Hct 32.0 % (35.0-51.0) L 07/17/18 05:47 MCV 97.2 fl (80.0-94.0) H 07/17/18 05:47 MCH 32.8 pg (27.0-31.0) H 07/17/18 05:47 MCHC 33.7 g/dL (33.0-37.0) 07/17/18 05:47 RDW 14.9 % (11.5-14.5) H 07/17/18 05:47 Plt Count 173 K/uL (130-400) 07/17/18 05:47 Sodium 137 mmol/l (132-148) 07/17/18 05:47 Potassium 4.7 MMOL/L (3.6-5.0) 07/17/18 05:47 Chloride 108 mmol/L (98-107) H 07/17/18 05:47 Carbon Dioxide 22 mmol/L (22-30) 07/17/18 05:47 Anion Gap 12 (10-20) 07/17/18 05:47 BUN 29 mg/dl (9-20) H 07/17/18 05:47 Creatinine 2.0 mg/dl (0.8-1.5) H 07/17/18 05:47 Est GFR ( Amer) 38 07/17/18 05:47 Est GFR (Non-Af Amer) 32 07/17/18 05:47 POC Glucose (mg/dL) 165 mg/dL (65-110) H 07/26/18 10:23 Random Glucose 117 mg/dL (75-110) H 07/17/18 05:47 Calcium 8.1 mg/dL (8.4-10.2) L 07/17/18 05:47 - Hospital Course Hospital Course: Pt admitted with N/V epigastric distress Troponins were elevated EKG: PMR Dx: NSTEMI Consult called with DR Gooden for Cardiac Cath Pt and family refused Pharmacologic Stress test (Lexiscan) Pt did the first part but refused the 2* part No Dx could be made - Date & Time of H&P Date of H&P: 07/27/18 Time of H&P: 12:18 Discharge Exam - Head Exam Head Exam: NORMAL INSPECTION Discharge Plan - Follow Up Plan Instructions: Heart Attack (DC), Diabetes Type 2 (DC)
== END 2018-07-26 12:03 | disposition home health service (06) | DRG 281 ==
LOC: H.TCU 17:27
PROVIDERS: ADMIT Internal Medicine Cardiovascular Disease; ATTEND Internal Medicine Cardiovascular Disease
PROC: F07M6FZ Therapeutic Exercise Treatment of Musculoskeletal System - Whole Body using Assistive, Adaptive, Supportive or Protective Equipment (ICD-10-PCS; principal; 2018-07-17)
DX: I21.4 Non-ST elevation (NSTEMI) myocardial infarction (principal); I69.351 Hemiplegia and hemiparesis following cerebral infarction affecting right dominant side; I69.320 Aphasia following cerebral infarction; E11.22 Type 2 diabetes mellitus with diabetic chronic kidney disease; G40.909 Epilepsy, unspecified, not intractable, without status epilepticus; I12.9 Hypertensive chronic kidney disease with stage 1 through stage 4 chronic kidney disease, or unspecified chronic kidney disease; I69.398 Other sequelae of cerebral infarction; N18.3 Chronic kidney disease, stage 3 (moderate); Z85.828 Personal history of other malignant neoplasm of skin; Z87.891 Personal history of nicotine dependence; Z95.0 Presence of cardiac pacemaker; Z95.5 Presence of coronary angioplasty implant and graft; H26.9 Unspecified cataract; M19.90 Unspecified osteoarthritis, unspecified site; Z79.84 Long term (current) use of oral hypoglycemic drugs

== ENCOUNTER 2018-08-01 12:38 | Inpatient (IN) | payer OTHER, MEDICARE ==
[2018-08-01 15:02] VITALS: BMI 30.2
[2018-08-01] MEDS ORDERED: POLYETHYLENE GLYCOL 3350 17 GM/Dose PACKET PO PRN (15:18)
[2018-08-01] MEDS: Lacosamide 50 MG Tab PO SCH (17:42)
[2018-08-02] MEDS: Levothyroxine 50 MCG TAB PO SCH (05:42)
[2018-08-02 08:02] LABS: CALCIUM 9.1 mg/dL (8.4-10.2)
[2018-08-02 08:04] LABS: BASO % 0.3 % (0.0-2.0); EOS # 0.2 K/uL (0.0-0.7); EOS % 3.3 % (0.0-4.0); HEMOGLOBIN 11.8 g/dL (12.0-18.0); LYMPH # 0.9 K/uL (1.0-4.3); LYMPH % 15.7 % (20.0-40.0); MEAN CELL VOLUME 95.5 fl (80.0-94.0); MEAN CORPUSCULAR HEMOGLOBIN 33.3 pg (27.0-31.0); MEAN CORPUSCULAR HGB CONC 34.9 g/dL (33.0-37.0); MEAN PLATELET VOLUME 8.7 fl (7.2-11.7); MONO # 0.7 K/uL (0.0-0.8); NEUT # 3.8 K/uL (1.8-7.0); NEUT % 67.7 % (50.0-75.0); NRBC % 0.1 % (0.0-0.0); RBC 3.55 Mil/uL (4.40-5.90); RED CELL DISTRIBUTION WIDTH 15.4 % (11.5-14.5); WHITE BLOOD COUNT 5.7 K/uL (4.8-10.8)
[2018-08-02] MEDS: Multivitamin With Minerals Tab PO SCH (09:19)
[2018-08-02] MEDS: Pantoprazole 40 mg EC Tab PO SCH (09:20)
[2018-08-02] MEDS: Lacosamide 50 MG Tab PO SCH ×2 (09:26→17:24)
[2018-08-02] MEDS ORDERED: Alum-Mag Hydrox-Simethicone Susp (30 mL) PO ONE (10:22)
[2018-08-03] MEDS: Levothyroxine 50 MCG TAB PO SCH (05:35)
[2018-08-03] MEDS: Pantoprazole 40 mg EC Tab PO SCH (08:18)
[2018-08-03] MEDS: Multivitamin With Minerals Tab PO SCH (08:18)
[2018-08-03] MEDS: Lacosamide 50 MG Tab PO SCH ×2 (08:20→16:11)
--- NOTE | 2018-08-03 18:19 | CP.PCM.HP ---
History of Present Illness - History of Present Illness History of Present Illness: 87 y/o w/m discharged 2 days ago from the [facility]CU after being admitted for an NSTEMI Patient here today because abdominal pain returned. Denies nausea, vomiting and diarrhea. Patient has had normal bowel movements. Claims he has dull aching pains in all quadrants NO N/V Breathing easily No Chest pain Consult w/ Dr Lewis Dx w/ Constipation relieved w/ Lactulose Troponin : neg x 2 BNP: 5 EKG: PMR PMH: 04/25/2007 CVA with aphasia and Right Hemiplegia Hypertension NIDDM Seizure Disorder 07/03/2016 Perm PM insertion CRF Stage 3 TMJ Arthritis Present on Admission - Present on Admission Any Indicators Present on Admission: No Past Patient History - Past Medical History & Family History Past Medical History?: Yes - Past Social History Smoking Status: Never Smoked - CARDIAC Hx Cardiac Disorders: Yes Hx Cardia Arrhythmia: Yes (CHB in January) Hx Heart Attack: Yes Hx Hypercholesterolemia: Yes Hx Hypertension: Yes Hx Pacemaker: Yes - PULMONARY Hx Respiratory Disorders: No - NEUROLOGICAL Hx Neurological Disorder: Yes HX Cerebrovascular Accident: Yes Hx Seizures: Yes Hx Transient Ischemic Attacks (TIA): Yes - HEENT Hx HEENT Problems: Yes Hx Cataracts: Yes - RENAL Hx Chronic Kidney Disease: Yes Hx Renal Failure: Yes - ENDOCRINE/METABOLIC Hx Endocrine Disorders: Yes Hx Diabetes Mellitus Type 2: Yes Hx Hypothyroidism: Yes - HEMATOLOGICAL/ONCOLOGICAL Hx Blood Disorders: No Hx Anemia: No Hx Human Immunodeficiency Virus (HIV): No - INTEGUMENTARY Hx Dermatological Problems: Yes Other/Comment: Hx skin cancer - MUSCULOSKELETAL/RHEUMATOLOGICAL Hx Falls: No - GASTROINTESTINAL Hx Gastrointestinal Disorders: No - GENITOURINARY/GYNECOLOGICAL Hx Genitourinary Disorders: No - PSYCHIATRIC Hx Substance Use: No - SURGICAL HISTORY Hx Surgeries: Yes Hx Coronary Stent: Yes Hx Herniorrhaphy: Yes - ANESTHESIA Hx Anesthesia: Yes Hx Anesthesia Reactions: No Hx Malignant Hyperthermia: No Meds Allergies/Adverse Reactions: Allergies Allergy/AdvReac Type Severity Reaction Status Date / Time No Known Allergies Allergy Verified 08/01/18 14:40 Results - Vital Signs Recent Vital Signs: Last Vital Signs Temp 97.2 F L 08/03/18 15:28 Pulse 61 08/03/18 15:28 Resp 20 08/03/18 15:28 BP 134/64 08/03/18 15:28 Pulse Ox 98 08/03/18 15:28 - Labs Result Diagrams: 08/02/18 05:30 08/02/18 05:30 Labs: Laboratory Results - last 24 hr 08/02/18 08/03/18 08/03/18 20:57 05:26 11:09 POC Glucose (mg/dL) 135 H 122 H 188 H 08/03/18 15:48 POC Glucose (mg/dL) 197 H Assessment & Plan (1) Abdominal discomfort Status: Acute (2) Constipation Status: Acute (3) Controlled type 2 diabetes mellitus Status: Acute (4) Essential (primary) hypertension Status: Acute (5) Frequent seizures Status: Acute (6) Hemiplegia affecting dominant side, post-stroke Status: Acute (7) History of permanent cardiac pacemaker placement Status: Acute (8) Seizure disorder Status: Acute
[2018-08-04] MEDS: Levothyroxine 50 MCG TAB PO SCH (05:34)
[2018-08-04] MEDS: Lacosamide 50 MG Tab PO SCH ×2 (08:17→16:18)
[2018-08-04] MEDS: Pantoprazole 40 mg EC Tab PO SCH (08:17)
[2018-08-04] MEDS: Multivitamin With Minerals Tab PO SCH (08:18)
--- NOTE | 2018-08-04 11:39 | CP.PCM.PN ---
Subjective - Date & Time of Evaluation Date of Evaluation: 08/04/18 Time of Evaluation: 10:00 - Subjective Subjective: c/o bloating will give lactulose Objective - Vital Signs/Intake and Output Vital Signs (last 24 hours): Temp Pulse Resp BP Pulse Ox 97.0 F L 60 20 149/74 99 08/03/18 19:52 08/03/18 19:52 08/03/18 19:52 08/04/18 08:15 08/03/18 19:52 - Medications Medications: Current Medications Acetaminophen (Tylenol 325mg Tab) 650 mg PO Q6 PRN PRN Reason: Fever >100.4 F Allopurinol (Zyloprim) 100 mg PO DAILY [facility] Last Admin: 08/04/18 08:17 Dose: 100 mg Aspirin (Ecotrin) 81 mg PO DAILY [facility] Last Admin: 08/04/18 08:14 Dose: 81 mg Atorvastatin Calcium (Lipitor) 40 mg PO DAILY [facility] Last Admin: 08/04/18 08:16 Dose: 40 mg Clopidogrel Bisulfate (Plavix) 75 mg PO DAILY [facility] Last Admin: 08/04/18 08:17 Dose: 75 mg Docusate Sodium (Colace) 100 mg PO Q12H [facility] Last Admin: 08/04/18 08:14 Dose: 100 mg Famotidine (Pepcid) 20 mg PO BID [facility] Last Admin: 08/04/18 08:17 Dose: 20 mg Fluocinonide (Lidex 0.05% Cream) 1 applic TOP TID [facility] Last Admin: 08/04/18 08:15 Dose: 1 applic Furosemide (Lasix) 40 mg PO DAILY [facility] Last Admin: 08/04/18 08:15 Dose: 40 mg Glyburide (Micronase) 5 mg PO DAILY [facility] Last Admin: 08/04/18 08:16 Dose: 5 mg Ibuprofen (Motrin Tab) 400 mg PO Q6 PRN PRN Reason: Pain, moderate (4-7) Last Admin: 08/04/18 10:37 Dose: 400 mg Lacosamide (Vimpat) 50 mg PO BID [facility] Last Admin: 08/04/18 08:17 Dose: 50 mg Lactulose (Enulose) 20 gm PO DAILY PRN PRN Reason: Constipation Last Admin: 08/02/18 21:26 Dose: 20 gm Levothyroxine Sodium (Synthroid) 50 mcg PO DAILY@0630 [facility] Last Admin: 08/04/18 05:34 Dose: 50 mcg Multivitamins/Minerals (Therapeutic-M Tab) 1 tab PO DAILY [facility] Last Admin: 08/04/18 08:18 Dose: 1 tab Nystatin (Nystop Topical Powder) 1 applic TOP TID [facility] Last Admin: 08/04/18 08:15 Dose: 1 applic Pantoprazole Sodium (Protonix Ec Tab) 40 mg PO DAILY [facility] Last Admin: 08/04/18 08:17 Dose: 40 mg Polyethylene Glycol (Miralax) 17 gm PO DAILY PRN PRN Reason: Constipation Trazodone HCl (Desyrel) 50 mg PO HS [facility] Last Admin: 08/03/18 21:06 Dose: 50 mg - Labs Labs: 08/02/18 05:30 08/02/18 05:30 Assessment and Plan (1) Abdominal discomfort Status: Acute (2) Constipation Status: Acute (3) Controlled type 2 diabetes mellitus Status: Acute (4) Essential (primary) hypertension Status: Acute (5) Frequent seizures Status: Acute (6) Hemiplegia affecting dominant side, post-stroke Status: Acute (7) History of permanent cardiac pacemaker placement Status: Acute (8) Seizure disorder Status: Acute
[2018-08-05] MEDS: Levothyroxine 50 MCG TAB PO SCH (05:30)
[2018-08-05] MEDS: Multivitamin With Minerals Tab PO SCH (08:27)
[2018-08-05] MEDS: Pantoprazole 40 mg EC Tab PO SCH (08:29)
[2018-08-05] MEDS: Lacosamide 50 MG Tab PO SCH ×2 (08:40→16:45)
--- NOTE | 2018-08-05 11:06 | CP.PCM.PN ---
Subjective - Date & Time of Evaluation Date of Evaluation: 08/05/18 Time of Evaluation: 10:00 - Subjective Subjective: Vona better yesterday after BM after lactulose still has some bloating today wiil get lactulose today labs ordered for the AM Objective - Vital Signs/Intake and Output Vital Signs (last 24 hours): Temp Pulse Resp BP Pulse Ox 97.2 F L 61 20 132/69 98 08/05/18 08:03 08/05/18 08:03 08/05/18 08:03 08/05/18 08:27 08/05/18 08:03 - Medications Medications: Current Medications Acetaminophen (Tylenol 325mg Tab) 650 mg PO Q6 PRN PRN Reason: Fever >100.4 F Allopurinol (Zyloprim) 100 mg PO DAILY [facility] Last Admin: 08/05/18 08:27 Dose: 100 mg Aspirin (Ecotrin) 81 mg PO DAILY [facility] Last Admin: 08/05/18 08:27 Dose: 81 mg Atorvastatin Calcium (Lipitor) 40 mg PO DAILY [facility] Last Admin: 08/05/18 08:26 Dose: Not Given Clopidogrel Bisulfate (Plavix) 75 mg PO DAILY [facility] Last Admin: 08/05/18 08:26 Dose: 75 mg Docusate Sodium (Colace) 100 mg PO Q12H [facility] Last Admin: 08/05/18 08:26 Dose: 100 mg Famotidine (Pepcid) 20 mg PO BID [facility] Last Admin: 08/05/18 08:25 Dose: 20 mg Fluocinonide (Lidex 0.05% Cream) 1 applic TOP TID [facility] Last Admin: 08/05/18 08:37 Dose: 1 applic Furosemide (Lasix) 40 mg PO DAILY [facility] Last Admin: 08/05/18 08:27 Dose: 40 mg Glyburide (Micronase) 5 mg PO DAILY [facility] Last Admin: 08/05/18 08:26 Dose: 5 mg Ibuprofen (Motrin Tab) 400 mg PO Q6 PRN PRN Reason: Pain, moderate (4-7) Last Admin: 08/04/18 10:37 Dose: 400 mg Lacosamide (Vimpat) 50 mg PO BID [facility] Last Admin: 08/05/18 08:40 Dose: 50 mg Lactulose (Enulose) 20 gm PO DAILY [facility] Last Admin: 08/05/18 08:28 Dose: 20 gm Levothyroxine Sodium (Synthroid) 50 mcg PO DAILY@0630 [facility] Last Admin: 08/05/18 05:30 Dose: 50 mcg Multivitamins/Minerals (Therapeutic-M Tab) 1 tab PO DAILY [facility] Last Admin: 08/05/18 08:27 Dose: 1 tab Nystatin (Nystop Topical Powder) 1 applic TOP TID [facility] Last Admin: 08/05/18 08:37 Dose: 1 applic Pantoprazole Sodium (Protonix Ec Tab) 40 mg PO DAILY [facility] Last Admin: 08/05/18 08:29 Dose: 40 mg Polyethylene Glycol (Miralax) 17 gm PO DAILY PRN PRN Reason: Constipation Last Admin: 08/04/18 12:13 Dose: 17 gm Trazodone HCl (Desyrel) 50 mg PO [facility] Last Admin: 08/04/18 21:05 Dose: 50 mg - Labs Labs: 08/02/18 05:30 08/02/18 05:30 Assessment and Plan (1) Abdominal discomfort Status: Acute (2) Constipation Status: Acute (3) Controlled type 2 diabetes mellitus Status: Acute (4) Essential (primary) hypertension Status: Acute (5) Frequent seizures Status: Acute (6) Hemiplegia affecting dominant side, post-stroke Status: Acute (7) History of permanent cardiac pacemaker placement Status: Acute (8) Seizure disorder Status: Acute
[2018-08-06] MEDS: Levothyroxine 50 MCG TAB PO SCH (06:22)
[2018-08-06 06:53] LABS: BASO % 0.5 % (0.0-2.0); EOS # 0.2 K/uL (0.0-0.7); EOS % 4.4 % (0.0-4.0); HEMOGLOBIN 11.9 g/dL (12.0-18.0); LYMPH # 0.7 K/uL (1.0-4.3); MEAN CELL VOLUME 94.6 fl (80.0-94.0); MEAN CORPUSCULAR HEMOGLOBIN 33.3 pg (27.0-31.0); MEAN CORPUSCULAR HGB CONC 35.2 g/dL (33.0-37.0); MEAN PLATELET VOLUME 8.6 fl (7.2-11.7); MONO # 0.8 K/uL (0.0-0.8); NEUT # 3.7 K/uL (1.8-7.0); NEUT % 68.1 % (50.0-75.0); RBC 3.57 Mil/uL (4.40-5.90); RED CELL DISTRIBUTION WIDTH 15.7 % (11.5-14.5); WHITE BLOOD COUNT 5.5 K/uL (4.8-10.8)
[2018-08-06 07:42] LABS: CALCIUM 8.9 mg/dL (8.4-10.2)
[2018-08-06] MEDS: Lacosamide 50 MG Tab PO SCH ×2 (08:30→17:27)
[2018-08-06] MEDS: Multivitamin With Minerals Tab PO SCH (08:30)
[2018-08-06] MEDS: Pantoprazole 40 mg EC Tab PO SCH (08:31)
--- NOTE | 2018-08-06 15:10 | CP.PCM.PN ---
Subjective - Date & Time of Evaluation Date of Evaluation: 08/06/18 Time of Evaluation: 10:00 - Subjective Subjective: Pt continues to c/o abdominal bloating and decreased appetite Will ask Dr Lewis to see pt again Objective - Vital Signs/Intake and Output Vital Signs (last 24 hours): Temp Pulse Resp BP Pulse Ox 97.2 F L 60 20 137/59 L 98 08/06/18 09:19 08/06/18 09:19 08/06/18 09:19 08/06/18 09:19 08/06/18 09:19 - Medications Medications: Current Medications Acetaminophen (Tylenol 325mg Tab) 650 mg PO Q6 PRN PRN Reason: Fever >100.4 F Allopurinol (Zyloprim) 100 mg PO DAILY [facility] Last Admin: 08/06/18 08:32 Dose: 100 mg Alprazolam (Xanax) 0.5 mg PO Q8 PRN PRN Reason: Anxiety Aspirin (Ecotrin) 81 mg PO DAILY [facility] Last Admin: 08/06/18 08:30 Dose: 81 mg Atorvastatin Calcium (Lipitor) 40 mg PO HS [facility] Last Admin: 08/05/18 21:40 Dose: 40 mg Clopidogrel Bisulfate (Plavix) 75 mg PO DAILY [facility] Last Admin: 08/06/18 08:35 Dose: 75 mg Docusate Sodium (Colace) 100 mg PO Q12H [facility] Last Admin: 08/06/18 08:32 Dose: 100 mg Famotidine (Pepcid) 20 mg PO BID [facility] Last Admin: 08/06/18 08:31 Dose: 20 mg Fluocinonide (Lidex 0.05% Cream) 1 applic TOP TID@0900,1300,2100 [facility] Last Admin: 08/06/18 08:35 Dose: 1 applic Furosemide (Lasix) 40 mg PO DAILY [facility] Last Admin: 08/06/18 08:32 Dose: 40 mg Glyburide (Micronase) 5 mg PO DAILY [facility] Last Admin: 08/06/18 08:34 Dose: 5 mg Ibuprofen (Motrin Tab) 400 mg PO Q6 PRN PRN Reason: Pain, moderate (4-7) Last Admin: 08/06/18 08:30 Dose: 400 mg Lacosamide (Vimpat) 50 mg PO BID [facility] Last Admin: 08/06/18 08:30 Dose: 50 mg Lactulose (Enulose) 20 gm PO DAILY [facility] Last Admin: 08/06/18 08:32 Dose: 20 gm Levothyroxine Sodium (Synthroid) 50 mcg PO DAILY@0630 [facility] Last Admin: 08/06/18 06:22 Dose: 50 mcg Multivitamins/Minerals (Therapeutic-M Tab) 1 tab PO DAILY [facility] Last Admin: 08/06/18 08:30 Dose: 1 tab Nystatin (Nystop Topical Powder) 1 applic TOP TID@0900,1300,2100 [facility] Last Admin: 08/06/18 08:34 Dose: 1 applic Pantoprazole Sodium (Protonix Ec Tab) 40 mg PO DAILY [facility] Last Admin: 08/06/18 08:31 Dose: 40 mg Polyethylene Glycol (Miralax) 17 gm PO DAILY PRN PRN Reason: Constipation Last Admin: 08/04/18 12:13 Dose: 17 gm Trazodone HCl (Desyrel) 50 mg PO HS [facility] Last Admin: 08/05/18 21:34 Dose: 50 mg - Labs Labs: 08/06/18 06:26 08/06/18 06:26 Assessment and Plan (1) Abdominal discomfort Status: Acute (2) Constipation Status: Acute (3) Controlled type 2 diabetes mellitus Status: Acute (4) Essential (primary) hypertension Status: Acute (5) Frequent seizures Status: Acute (6) Hemiplegia affecting dominant side, post-stroke Status: Acute (7) History of permanent cardiac pacemaker placement Status: Acute (8) Seizure disorder Status: Acute
[2018-08-07] MEDS: Levothyroxine 50 MCG TAB PO SCH (06:03)
[2018-08-07] MEDS: Lacosamide 50 MG Tab PO SCH ×2 (08:05→16:55)
[2018-08-07] MEDS: Pantoprazole 40 mg EC Tab PO SCH (08:09)
[2018-08-07] MEDS: Multivitamin With Minerals Tab PO SCH (08:09)
--- NOTE | 2018-08-07 11:04 | CP.PCM.PN ---
Subjective - Date & Time of Evaluation Date of Evaluation: 08/07/18 Time of Evaluation: 10:00 - Subjective Subjective: Feels sl better but still c/o bloating Dr Lewis to see pt Objective - Vital Signs/Intake and Output Vital Signs (last 24 hours): Temp Pulse Resp BP Pulse Ox 97.5 F L 60 20 129/67 95 08/07/18 09:21 08/07/18 09:21 08/07/18 09:21 08/07/18 09:21 08/07/18 09:21 - Medications Medications: Current Medications Acetaminophen (Tylenol 325mg Tab) 650 mg PO Q6 PRN PRN Reason: Fever >100.4 F Allopurinol (Zyloprim) 100 mg PO DAILY [facility] Last Admin: 08/07/18 08:09 Dose: 100 mg Alprazolam (Xanax) 0.5 mg PO Q8 PRN PRN Reason: Anxiety Aspirin (Ecotrin) 81 mg PO DAILY [facility] Last Admin: 08/07/18 08:07 Dose: 81 mg Atorvastatin Calcium (Lipitor) 40 mg PO HS [facility] Last Admin: 08/06/18 21:23 Dose: 40 mg Clopidogrel Bisulfate (Plavix) 75 mg PO DAILY [facility] Last Admin: 08/07/18 08:09 Dose: 75 mg Docusate Sodium (Colace) 100 mg PO Q12H [facility] Last Admin: 08/07/18 08:05 Dose: 100 mg Famotidine (Pepcid) 20 mg PO BID [facility] Last Admin: 08/07/18 08:09 Dose: 20 mg Fluocinonide (Lidex 0.05% Cream) 1 applic TOP TID@0900,1300,2100 [facility] Last Admin: 08/07/18 08:08 Dose: 1 applic Furosemide (Lasix) 40 mg PO DAILY [facility] Last Admin: 08/07/18 08:07 Dose: 40 mg Glyburide (Micronase) 5 mg PO DAILY [facility] Last Admin: 08/07/18 08:09 Dose: 5 mg Ibuprofen (Motrin Tab) 400 mg PO Q6 PRN PRN Reason: Pain, moderate (4-7) Last Admin: 08/06/18 23:52 Dose: 400 mg Lacosamide (Vimpat) 50 mg PO BID [facility] Last Admin: 08/07/18 08:05 Dose: 50 mg Lactulose (Enulose) 20 gm PO DAILY [facility] Last Admin: 08/07/18 08:07 Dose: 20 gm Levothyroxine Sodium (Synthroid) 50 mcg PO DAILY@0630 [facility] Last Admin: 08/07/18 06:03 Dose: 50 mcg Multivitamins/Minerals (Therapeutic-M Tab) 1 tab PO DAILY [facility] Last Admin: 08/07/18 08:09 Dose: 1 tab Nystatin (Nystop Topical Powder) 1 applic TOP TID@0900,1300,2100 [facility] Last Admin: 08/07/18 08:09 Dose: 1 applic Pantoprazole Sodium (Protonix Ec Tab) 40 mg PO DAILY [facility] Last Admin: 08/07/18 08:09 Dose: 40 mg Polyethylene Glycol (Miralax) 17 gm PO DAILY PRN PRN Reason: Constipation Last Admin: 08/04/18 12:13 Dose: 17 gm Trazodone HCl (Desyrel) 50 mg PO HS [facility] Last Admin: 08/06/18 21:23 Dose: 50 mg - Labs Labs: 08/06/18 06:26 08/06/18 06:26 Assessment and Plan (1) Abdominal discomfort Status: Acute (2) Constipation Status: Acute (3) Controlled type 2 diabetes mellitus Status: Acute (4) Essential (primary) hypertension Status: Acute (5) Frequent seizures Status: Acute (6) Hemiplegia affecting dominant side, post-stroke Status: Acute (7) History of permanent cardiac pacemaker placement Status: Acute (8) Seizure disorder Status: Acute
--- NOTE | 2018-08-07 17:54 | CP.PCM.PN ---
Subjective - Date & Time of Evaluation Date of Evaluation: 08/07/18 Time of Evaluation: 17:52 - Subjective Subjective: bloating Objective - Vital Signs/Intake and Output Vital Signs (last 24 hours): Temp Pulse Resp BP Pulse Ox 97.0 F L 60 20 140/59 L 98 08/07/18 16:31 08/07/18 16:31 08/07/18 16:31 08/07/18 16:31 08/07/18 16:31 - Medications Medications: Current Medications Acetaminophen (Tylenol 325mg Tab) 650 mg PO Q6 PRN PRN Reason: Fever >100.4 F Allopurinol (Zyloprim) 100 mg PO DAILY [facility] Last Admin: 08/07/18 08:09 Dose: 100 mg Alprazolam (Xanax) 0.5 mg PO Q8 PRN PRN Reason: Anxiety Aspirin (Ecotrin) 81 mg PO DAILY [facility] Last Admin: 08/07/18 08:07 Dose: 81 mg Atorvastatin Calcium (Lipitor) 40 mg PO HS [facility] Last Admin: 08/06/18 21:23 Dose: 40 mg Clopidogrel Bisulfate (Plavix) 75 mg PO DAILY [facility] Last Admin: 08/07/18 08:09 Dose: 75 mg Fluocinonide (Lidex 0.05% Cream) 1 applic TOP TID@0900,1300,2100 [facility] Last Admin: 08/07/18 12:15 Dose: 1 applic Furosemide (Lasix) 40 mg PO DAILY [facility] Last Admin: 08/07/18 08:07 Dose: 40 mg Glyburide (Micronase) 5 mg PO DAILY [facility] Last Admin: 08/07/18 08:09 Dose: 5 mg Lacosamide (Vimpat) 50 mg PO BID [facility] Last Admin: 08/07/18 16:55 Dose: 50 mg Lactulose (Enulose) 20 gm PO DAILY PRN PRN Reason: Constipation Levothyroxine Sodium (Synthroid) 50 mcg PO DAILY@0630 [facility] Last Admin: 08/07/18 06:03 Dose: 50 mcg Multivitamins/Minerals (Therapeutic-M Tab) 1 tab PO DAILY [facility] Last Admin: 08/07/18 08:09 Dose: 1 tab Nystatin (Nystop Topical Powder) 1 applic TOP TID@0900,1300,2100 [facility] Last Admin: 08/07/18 12:16 Dose: 1 applic Pantoprazole Sodium (Protonix Ec Tab) 40 mg PO BID [facility] Polyethylene Glycol (Miralax) 17 gm PO DAILY PRN PRN Reason: Constipation Last Admin: 08/04/18 12:13 Dose: 17 gm Trazodone HCl (Desyrel) 50 mg PO HS [facility] Last Admin: 08/06/18 21:23 Dose: 50 mg - Labs Labs: 08/06/18 06:26 08/06/18 06:26 - Respiratory Exam Respiratory Exam: Clear to Ausculation Bilateral, NORMAL BREATHING PATTERN - Cardiovascular Exam Cardiovascular Exam: REGULAR RHYTHM - GI/Abdominal Exam GI & Abdominal Exam: Soft, Normal Bowel Sounds Assessment and Plan - Assessment and Plan (Free Text) Assessment: 87 yo male with bloating concern for gastroparesis do NOT give pro-motility agents until nuclear gastric emptying study done
[2018-08-08] MEDS: Levothyroxine 50 MCG TAB PO SCH (05:42)
[2018-08-08] MEDS: Pantoprazole 40 mg EC Tab PO SCH ×2 (08:29→17:02)
[2018-08-08] MEDS: Lacosamide 50 MG Tab PO SCH ×2 (08:29→17:02)
[2018-08-08] MEDS: Multivitamin With Minerals Tab PO SCH (08:30)
--- NOTE | 2018-08-08 13:48 | CP.PCM.PN ---
Subjective - Date & Time of Evaluation Date of Evaluation: 08/08/18 Time of Evaluation: 10:00 - Subjective Subjective: Dr Lewis note appreciated nuclear gastric emptying study ordered Objective - Vital Signs/Intake and Output Vital Signs (last 24 hours): Temp Pulse Resp BP Pulse Ox 98.9 F 60 20 137/74 99 08/08/18 07:38 08/08/18 07:38 08/08/18 07:38 08/08/18 08:29 08/08/18 07:38 - Medications Medications: Current Medications Acetaminophen (Tylenol 325mg Tab) 650 mg PO Q6 PRN PRN Reason: Fever >100.4 F Allopurinol (Zyloprim) 100 mg PO DAILY [facility] Last Admin: 08/08/18 08:29 Dose: 100 mg Alprazolam (Xanax) 0.5 mg PO Q8 PRN PRN Reason: Anxiety Aspirin (Ecotrin) 81 mg PO DAILY [facility] Last Admin: 08/08/18 08:29 Dose: 81 mg Atorvastatin Calcium (Lipitor) 40 mg PO HS [facility] Last Admin: 08/07/18 21:18 Dose: 40 mg Clopidogrel Bisulfate (Plavix) 75 mg PO DAILY [facility] Last Admin: 08/08/18 08:29 Dose: 75 mg Fluocinonide (Lidex 0.05% Cream) 1 applic TOP TID@0900,1300,2100 [facility] Last Admin: 08/08/18 12:34 Dose: 1 applic Furosemide (Lasix) 40 mg PO DAILY [facility] Last Admin: 08/08/18 08:29 Dose: 40 mg Glyburide (Micronase) 5 mg PO DAILY [facility] Last Admin: 08/08/18 08:30 Dose: Not Given Lacosamide (Vimpat) 50 mg PO BID [facility] Last Admin: 08/08/18 08:29 Dose: 50 mg Lactulose (Enulose) 20 gm PO DAILY PRN PRN Reason: Constipation Levothyroxine Sodium (Synthroid) 50 mcg PO DAILY@0630 [facility] Last Admin: 08/08/18 05:42 Dose: Not Given Multivitamins/Minerals (Therapeutic-M Tab) 1 tab PO DAILY [facility] Last Admin: 08/08/18 08:30 Dose: 1 tab Nystatin (Nystop Topical Powder) 1 applic TOP TID@0900,1300,2100 [facility] Last Admin: 08/08/18 12:34 Dose: 1 applic Pantoprazole Sodium (Protonix Ec Tab) 40 mg PO BID [facility] Last Admin: 08/08/18 08:29 Dose: 40 mg Polyethylene Glycol (Miralax) 17 gm PO DAILY PRN PRN Reason: Constipation Last Admin: 08/04/18 12:13 Dose: 17 gm Trazodone HCl (Desyrel) 50 mg PO HS [facility] Last Admin: 08/07/18 21:19 Dose: 50 mg - Labs Labs: 08/06/18 06:26 08/06/18 06:26 Assessment and Plan (1) Abdominal discomfort Status: Acute (2) Constipation Status: Acute (3) Controlled type 2 diabetes mellitus Status: Acute (4) Essential (primary) hypertension Status: Acute (5) Frequent seizures Status: Acute (6) Hemiplegia affecting dominant side, post-stroke Status: Acute (7) History of permanent cardiac pacemaker placement Status: Acute (8) Seizure disorder Status: Acute
[2018-08-09] MEDS: Levothyroxine 50 MCG TAB PO SCH (06:34)
[2018-08-09] MEDS: Multivitamin With Minerals Tab PO SCH (08:50)
[2018-08-09] MEDS: Lacosamide 50 MG Tab PO SCH ×2 (08:51→17:13)
[2018-08-09] MEDS: Pantoprazole 40 mg EC Tab PO SCH ×2 (08:52→17:15)
--- NOTE | 2018-08-09 13:24 | CP.PCM.PN ---
Subjective - Date & Time of Evaluation Date of Evaluation: 08/09/18 Time of Evaluation: 10:00 - Subjective Subjective: Gastric emptying study done yesterday shows good stomach function This was explained to the patient and in detail still has some bloating but less today Objective - Vital Signs/Intake and Output Vital Signs (last 24 hours): Temp Pulse Resp BP Pulse Ox 97.1 F L 62 20 132/67 100 08/09/18 08:05 08/09/18 08:05 08/09/18 08:05 08/09/18 08:51 08/09/18 08:05 - Medications Medications: Current Medications Acetaminophen (Tylenol 325mg Tab) 650 mg PO Q6 PRN PRN Reason: Fever >100.4 F Allopurinol (Zyloprim) 100 mg PO DAILY [facility] Last Admin: 08/09/18 08:51 Dose: 100 mg Alprazolam (Xanax) 0.5 mg PO Q8 PRN PRN Reason: Anxiety Aspirin (Ecotrin) 81 mg PO DAILY [facility] Last Admin: 08/09/18 08:51 Dose: 81 mg Atorvastatin Calcium (Lipitor) 40 mg PO HS [facility] Last Admin: 08/08/18 21:16 Dose: 40 mg Clopidogrel Bisulfate (Plavix) 75 mg PO DAILY [facility] Last Admin: 08/09/18 08:51 Dose: 75 mg Fluocinonide (Lidex 0.05% Cream) 1 applic TOP TID@0900,1300,2100 [facility] Last Admin: 08/09/18 08:53 Dose: 1 applic Furosemide (Lasix) 40 mg PO DAILY [facility] Last Admin: 08/09/18 08:51 Dose: 40 mg Glyburide (Micronase) 5 mg PO DAILY [facility] Last Admin: 08/09/18 08:51 Dose: 5 mg Lacosamide (Vimpat) 50 mg PO BID [facility] Last Admin: 08/09/18 08:51 Dose: 50 mg Lactulose (Enulose) 20 gm PO DAILY PRN PRN Reason: Constipation Levothyroxine Sodium (Synthroid) 50 mcg PO DAILY@0630 [facility] Last Admin: 08/09/18 06:34 Dose: 50 mcg Multivitamins/Minerals (Therapeutic-M Tab) 1 tab PO DAILY [facility] Last Admin: 08/09/18 08:50 Dose: 1 tab Nystatin (Nystop Topical Powder) 1 applic TOP TID@0900,1300,2100 [facility] Last Admin: 08/09/18 08:54 Dose: 1 applic Pantoprazole Sodium (Protonix Ec Tab) 40 mg PO BID [facility] Last Admin: 08/09/18 08:52 Dose: 40 mg Polyethylene Glycol (Miralax) 17 gm PO DAILY PRN PRN Reason: Constipation Last Admin: 08/04/18 12:13 Dose: 17 gm Trazodone HCl (Desyrel) 50 mg PO HS [facility] Last Admin: 08/08/18 21:16 Dose: 50 mg - Labs Labs: 08/06/18 06:26 08/06/18 06:26 Assessment and Plan (1) Abdominal discomfort Status: Acute (2) Constipation Status: Acute (3) Controlled type 2 diabetes mellitus Status: Acute (4) Essential (primary) hypertension Status: Acute (5) Frequent seizures Status: Acute (6) Hemiplegia affecting dominant side, post-stroke Status: Acute (7) History of permanent cardiac pacemaker placement Status: Acute (8) Seizure disorder Status: Acute
[2018-08-10] MEDS: Levothyroxine 50 MCG TAB PO SCH (06:12)
[2018-08-10] MEDS: Lacosamide 50 MG Tab PO SCH ×2 (09:14→17:03)
[2018-08-10] MEDS: Multivitamin With Minerals Tab PO SCH (09:14)
[2018-08-10] MEDS: Pantoprazole 40 mg EC Tab PO SCH ×2 (09:15→17:03)
[2018-08-10 16:25] VITALS: RESP 20
[2018-08-11] MEDS: Levothyroxine 50 MCG TAB PO SCH (06:11)
[2018-08-11] MEDS: Pantoprazole 40 mg EC Tab PO SCH ×2 (08:07→16:49)
[2018-08-11] MEDS: Multivitamin With Minerals Tab PO SCH (08:07)
[2018-08-11] MEDS: Lacosamide 50 MG Tab PO SCH ×2 (08:11→16:49)
--- NOTE | 2018-08-11 12:03 | CP.PCM.PN ---
Subjective - Date & Time of Evaluation Date of Evaluation: 08/11/18 Time of Evaluation: 09:00 - Subjective Subjective: No complaints feels well for possible discharge tomorrow Objective - Vital Signs/Intake and Output Vital Signs (last 24 hours): Temp Pulse Resp BP Pulse Ox 97.9 F 59 L 20 127/62 100 08/10/18 21:30 08/10/18 21:30 08/10/18 21:30 08/11/18 08:08 08/10/18 21:30 - Medications Medications: Current Medications Acetaminophen (Tylenol 325mg Tab) 650 mg PO Q6 PRN PRN Reason: Fever >100.4 F Acetaminophen (Tylenol 325mg Tab) 650 mg PO Q6 PRN PRN Reason: Pain, Mild (1-3) Last Admin: 08/09/18 14:10 Dose: 650 mg Allopurinol (Zyloprim) 100 mg PO DAILY [facility] Last Admin: 08/11/18 08:08 Dose: 100 mg Alprazolam (Xanax) 0.5 mg PO Q8 PRN PRN Reason: Anxiety Aspirin (Ecotrin) 81 mg PO DAILY [facility] Last Admin: 08/11/18 08:08 Dose: 81 mg Atorvastatin Calcium (Lipitor) 40 mg PO HS [facility] Last Admin: 08/10/18 21:31 Dose: 40 mg Clopidogrel Bisulfate (Plavix) 75 mg PO DAILY [facility] Last Admin: 08/11/18 08:08 Dose: 75 mg Fluocinonide (Lidex 0.05% Cream) 1 applic TOP TID@0900,1300,2100 [facility] Last Admin: 08/11/18 08:07 Dose: 1 applic Furosemide (Lasix) 40 mg PO DAILY [facility] Last Admin: 08/11/18 08:08 Dose: 40 mg Glyburide (Micronase) 5 mg PO DAILY [facility] Last Admin: 08/11/18 08:07 Dose: 5 mg Lacosamide (Vimpat) 50 mg PO BID [facility] Last Admin: 08/11/18 08:11 Dose: 50 mg Lactulose (Enulose) 20 gm PO DAILY PRN PRN Reason: Constipation Levothyroxine Sodium (Synthroid) 50 mcg PO DAILY@0630 [facility] Last Admin: 08/11/18 06:11 Dose: 50 mcg Multivitamins/Minerals (Therapeutic-M Tab) 1 tab PO DAILY [facility] Last Admin: 08/11/18 08:07 Dose: 1 tab Nystatin (Nystop Topical Powder) 1 applic TOP TID@0900,1300,2100 [facility] Last Admin: 08/11/18 08:07 Dose: 1 applic Pantoprazole Sodium (Protonix Ec Tab) 40 mg PO BID [facility] Last Admin: 08/11/18 08:07 Dose: 40 mg Polyethylene Glycol (Miralax) 17 gm PO DAILY PRN PRN Reason: Constipation Last Admin: 08/04/18 12:13 Dose: 17 gm Trazodone HCl (Desyrel) 50 mg PO HS [facility] Last Admin: 08/10/18 21:31 Dose: 50 mg - Labs Labs: 08/06/18 06:26 08/06/18 06:26 Assessment and Plan (1) Abdominal discomfort Status: Acute (2) Constipation Status: Acute (3) Controlled type 2 diabetes mellitus Status: Acute (4) Essential (primary) hypertension Status: Acute (5) Frequent seizures Status: Acute (6) Hemiplegia affecting dominant side, post-stroke Status: Acute (7) History of permanent cardiac pacemaker placement Status: Acute (8) Seizure disorder Status: Acute
[2018-08-12] MEDS: Levothyroxine 50 MCG TAB PO SCH (05:59)
[2018-08-12] MEDS: Lacosamide 50 MG Tab PO SCH ×2 (08:09→17:12)
[2018-08-12] MEDS: Multivitamin With Minerals Tab PO SCH (08:09)
[2018-08-12] MEDS: Pantoprazole 40 mg EC Tab PO SCH ×2 (08:10→17:13)
--- NOTE | 2018-08-12 11:49 | CP.PCM.PN ---
Subjective - Date & Time of Evaluation Date of Evaluation: 08/12/18 Time of Evaluation: 10:00 - Subjective Subjective: Continues to c/o bloating doesn't want to go home for possible d/c today Objective - Vital Signs/Intake and Output Vital Signs (last 24 hours): Temp Pulse Resp BP Pulse Ox 97.2 F L 61 20 141/71 95 08/12/18 09:06 08/12/18 09:06 08/12/18 09:06 08/12/18 09:06 08/12/18 09:06 - Medications Medications: Current Medications Acetaminophen (Tylenol 325mg Tab) 650 mg PO Q6 PRN PRN Reason: Fever >100.4 F Acetaminophen (Tylenol 325mg Tab) 650 mg PO Q6 PRN PRN Reason: Pain, Mild (1-3) Last Admin: 08/12/18 03:57 Dose: 650 mg Allopurinol (Zyloprim) 100 mg PO DAILY [facility] Last Admin: 08/12/18 08:10 Dose: 100 mg Alprazolam (Xanax) 0.5 mg PO Q8 PRN PRN Reason: Anxiety Aspirin (Ecotrin) 81 mg PO DAILY [facility] Last Admin: 08/12/18 08:10 Dose: 81 mg Atorvastatin Calcium (Lipitor) 40 mg PO HS [facility] Last Admin: 08/11/18 21:30 Dose: 40 mg Clopidogrel Bisulfate (Plavix) 75 mg PO DAILY [facility] Last Admin: 08/12/18 08:09 Dose: 75 mg Fluocinonide (Lidex 0.05% Cream) 1 applic TOP TID@0900,1300,2100 [facility] Last Admin: 08/12/18 08:10 Dose: 1 applic Furosemide (Lasix) 40 mg PO DAILY [facility] Last Admin: 08/12/18 08:09 Dose: 40 mg Glyburide (Micronase) 5 mg PO DAILY [facility] Last Admin: 08/12/18 08:10 Dose: 5 mg Lacosamide (Vimpat) 50 mg PO BID [facility] Last Admin: 08/12/18 08:09 Dose: 50 mg Lactulose (Enulose) 20 gm PO DAILY PRN PRN Reason: Constipation Levothyroxine Sodium (Synthroid) 50 mcg PO DAILY@0630 [facility] Last Admin: 08/12/18 05:59 Dose: 50 mcg Multivitamins/Minerals (Therapeutic-M Tab) 1 tab PO DAILY [facility] Last Admin: 08/12/18 08:09 Dose: 1 tab Nystatin (Nystop Topical Powder) 1 applic TOP TID@0900,1300,2100 [facility] Last Admin: 08/12/18 08:10 Dose: 1 applic Pantoprazole Sodium (Protonix Ec Tab) 40 mg PO BID [facility] Last Admin: 08/12/18 08:10 Dose: 40 mg Polyethylene Glycol (Miralax) 17 gm PO DAILY PRN PRN Reason: Constipation Last Admin: 08/04/18 12:13 Dose: 17 gm Trazodone HCl (Desyrel) 50 mg PO HS [facility] Last Admin: 08/11/18 21:30 Dose: 50 mg - Labs Labs: 08/06/18 06:26 08/06/18 06:26 Assessment and Plan (1) Abdominal discomfort Status: Acute (2) Constipation Status: Acute (3) Controlled type 2 diabetes mellitus Status: Acute (4) Essential (primary) hypertension Status: Acute (5) Frequent seizures Status: Acute (6) Hemiplegia affecting dominant side, post-stroke Status: Acute (7) History of permanent cardiac pacemaker placement Status: Acute (8) Seizure disorder Status: Acute
[2018-08-12 15:48] VITALS: TEMP 97.9; O2SAT 98
[2018-08-12 20:06] VITALS: PULSE 62
[2018-08-13] MEDS: Levothyroxine 50 MCG TAB PO SCH (05:31)
[2018-08-13] MEDS: Multivitamin With Minerals Tab PO SCH (08:44)
[2018-08-13] MEDS: Pantoprazole 40 mg EC Tab PO SCH (08:44)
[2018-08-13] MEDS: Lacosamide 50 MG Tab PO SCH (08:44)
[2018-08-13 08:45] VITALS: BP 133/63
--- NOTE | 2018-08-13 10:22 | CP.PCM.DIS ---
Provider - Provider Date of Admission: 08/01/18 15:02 Attending physician: Douglas Weiss MD Primary care physician: Lisa Weiss Consults: Dr Lugo Time Spent in preparation of Discharge (in minutes): 55 Diagnosis - Discharge Diagnosis (1) Abdominal bloating Status: Acute (2) Abdominal discomfort Status: Acute (3) Constipation Status: Acute (4) Controlled type 2 diabetes mellitus Status: Acute (5) Essential (primary) hypertension Status: Acute (6) Frequent seizures Status: Acute (7) Hemiplegia affecting dominant side, post-stroke Status: Acute (8) History of permanent cardiac pacemaker placement Status: Acute (9) Seizure disorder Status: Acute Hospital Course - Lab Results Lab Results: Most Recent Lab Values WBC 5.5 K/uL (4.8-10.8) 08/06/18 06:26 RBC 3.57 Mil/uL (4.40-5.90) L 08/06/18 06:26 Hgb 11.9 g/dL (12.0-18.0) L 08/06/18 06:26 Hct 33.8 % (35.0-51.0) L 08/06/18 06:26 MCV 94.6 fl (80.0-94.0) H 08/06/18 06:26 MCH 33.3 pg (27.0-31.0) H 08/06/18 06:26 MCHC 35.2 g/dL (33.0-37.0) 08/06/18 06:26 RDW 15.7 % (11.5-14.5) H 08/06/18 06:26 Plt Count 222 K/uL (130-400) 08/06/18 06:26 MPV 8.6 fl (7.2-11.7) 08/06/18 06:26 Neut % (Auto) 68.1 % (50.0-75.0) 08/06/18 06:26 Lymph % (Auto) 13.0 % (20.0-40.0) L 08/06/18 06:26 [place] % (Auto) 14.0 % (0.0-10.0) H 08/06/18 06:26 Eos % (Auto) 4.4 % (0.0-4.0) H 09/12/18 06:26 Baso % (Auto) 0.5 % (0.0-2.0) 08/06/18 06:26 Neut # (Auto) 3.7 K/uL (1.8-7.0) 08/06/18 06:26 Lymph # (Auto) 0.7 K/uL (1.0-4.3) L 08/06/18 06:26 [place] # (Auto) 0.8 K/uL (0.0-0.8) 08/06/18 06:26 Eos # (Auto) 0.2 K/uL (0.0-0.7) 08/06/18 06:26 Baso # (Auto) 0.0 K/uL (0.0-0.2) 08/06/18 06:26 Sodium 141 mmol/l (132-148) 08/06/18 06:26 Potassium 3.5 MMOL/L (3.6-5.0) L 08/06/18 06:26 Chloride 103 mmol/L (98-107) 08/06/18 06:26 Carbon Dioxide 29 mmol/L (22-30) 08/06/18 06:26 Anion Gap 13 (10-20) 08/06/18 06:26 BUN 32 mg/dl (9-20) H 08/06/18 06:26 Creatinine 2.2 mg/dl (0.8-1.5) H 08/06/18 06:26 Est GFR ( Amer) 34 08/06/18 06:26 Est GFR (Non-Af Amer) 28 08/06/18 06:26 POC Glucose (mg/dL) 119 mg/dL (65-110) H 08/13/18 05:17 Random Glucose 125 mg/dL (75-110) H 08/06/18 06:26 Calcium 8.9 mg/dL (8.4-10.2) 08/06/18 06:26 - Hospital Course Hospital Course: 87 y/o w/m discharged 2 days [employer] from [facility] after being admitted for an NSTEMI Patient here today because abdominal pain returned. Denies nausea, vomiting and diarrhea. Patient has had normal bowel movements. 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
== END 2018-08-13 12:10 | disposition home or self-care (01) | DRG 281 ==
LOC: H.TCU 15:02
PROVIDERS: ADMIT Internal Medicine Cardiovascular Disease; ATTEND Internal Medicine Cardiovascular Disease
PROC: F07Z9FZ Gait Training/Functional Ambulation Treatment using Assistive, Adaptive, Supportive or Protective Equipment (ICD-10-PCS; principal; 2018-08-01)
PROC: F07M6FZ Therapeutic Exercise Treatment of Musculoskeletal System - Whole Body using Assistive, Adaptive, Supportive or Protective Equipment (ICD-10-PCS; 2018-08-01)
PROC: F08Z4FZ Home Management Treatment using Assistive, Adaptive, Supportive or Protective Equipment (ICD-10-PCS; 2018-08-01)
DX: I21.4 Non-ST elevation (NSTEMI) myocardial infarction (principal); G81.91 Hemiplegia, unspecified affecting right dominant side; E03.9 Hypothyroidism, unspecified; E11.22 Type 2 diabetes mellitus with diabetic chronic kidney disease; E78.00 Pure hypercholesterolemia, unspecified; G40.909 Epilepsy, unspecified, not intractable, without status epilepticus; I12.9 Hypertensive chronic kidney disease with stage 1 through stage 4 chronic kidney disease, or unspecified chronic kidney disease; I69.320 Aphasia following cerebral infarction; K59.00 Constipation, unspecified; N18.3 Chronic kidney disease, stage 3 (moderate); Z85.828 Personal history of other malignant neoplasm of skin; Z95.0 Presence of cardiac pacemaker; Z95.5 Presence of coronary angioplasty implant and graft; H26.9 Unspecified cataract; M26.69 Other specified disorders of temporomandibular joint; Z79.84 Long term (current) use of oral hypoglycemic drugs; R14.0 Abdominal distension (gaseous)